=== PATIENT | female | born 1945 | race Caucasian/White ===

== ENCOUNTER 2020-10-12 08:37 | Outpatient (CLI) | payer MEDICARE, SELFPAY ==
--- NOTE | ~2020-10-12 | MM_ITS ---
EXAMINATION: MM screening [facility] BI w anh HISTORY: Screening mammogram TECHNIQUE: Craniocaudal and mediolateral oblique 3-D tomosynthesis images were obtained and synthetic 2-D images were generated. CAD analysis was submitted and interpreted. COMPARISON: 09/29/2019, 09/28/2018, 09/22/2017 BREAST PARENCHYMAL COMPOSITION: There are scattered areas of fibroglandular density. FINDINGS: There is no evidence of suspicious mass, calcification, or architectural distortion to sugg est malignancy in either breast. There has been no suspicious interval change. IMPRESSION: 1. No mammographic evidence of malignancy. 2. Recommend routine screening mammography in one year. BI-RADS Category 1: Negative Reviewed, dictated and finalized at location A. ICIAN PEDIATRICIAN
--- NOTE | ~2020-10-12 | DEXA_ITS ---
Bone Density Report Name: Ana Rosa Patiño Age: 75 Sex: Female Ethnicity: White Date of : 1945 Indication: postmenopausal; parental hip fracture; height loss; Referring Provider: LAQUITA ROBERT Study: Bone densitometry was performed. Exam Date: October 12, 2020 Accession number: [id number] Bone Density: Region BMD T-score Z-score Classification AP Spine (L1, L4) 1.330 2.7 5.0 Normal Femoral Neck (Left) 0.735 -1.0 1.0 Normal Total Hip (Left) 0.926 -0.1 1.6 Normal Total Hip Bilateral Avg 0.897 -0.4 1.4 Normal Femoral Neck (Right) 0.595 -2.3 -0.3 Osteopenia Total Hip (Right) 0.867 -0.6 1.1 Normal World Health Organization criteria for BMD impression classify patients as: Normal (T-score at or above -1.0), Osteopenia (T-score between -1.0 and -2.5), or Osteoporosis (T-score at or below -2.5). 10-year Fracture Risk(1): Major Osteoporotic Fracture 23% Hip Fracture 11% Reported Risk Factors: [place] (), Neck BMD=0.595, BMI=32.4, parental fracture (1) FRAX(R) Version 3.08. Fracture probability calculated for an untreated patient. Fracture probability may be lower if the patient has received treatment. Previous Exams: Region Exam Age BMD T-score BMD Change BMD Change Date g/cm2 vs Baseline vs Previous AP Spine(L1, L4) 10/12/2020 75 1.330 2.7 0.116(9.5%)# 0.131(10.9%)* 08/26/2012 67 1.199 1.5 -0.015(-1.3%)# -0.049(-3.9%)# 07/08/2006 61 1.248 1.9 0.034(2.8%)* 0.034(2.8%)* 07/01/2002 57 1.214 1.6 Total Hip(Left) 10/12/2020 75 0.926 -0.1 -0.010(-1.1%)# 0.005(0.5%)# 09/28/2018 73 0.921 -0.2 -0.015(-1.6%)# 0.012(1.3%) 09/16/2016 71 0.909 -0.3 -0.027(-2.9%)# 0.000(0.0%) 09/12/2014 69 0.909 -0.3 -0.027(-2.9%)# -0.019(-2.0%)# 08/26/2012 67 0.928 -0.1 -0.008(-0.9%)# 0.082(9.7%)# 08/15/2010 65 0.846 -0.8 -0.090(-9.6%)* -0.054(-6.0%)* 07/08/2006 61 0.900 -0.3 -0.036(-3.9%)* -0.036(-3.9%)* 07/01/2002 57 0.936 0.0 Total Hip(Right) 10/12/2020 75 0.867 -0.6 0.054(6.6%)# 0.016(1.8%)# 09/28/2018 73 0.852 -0.7 0.038(4.7%)# 0.004(0.4%) 09/16/2016 71 0.848 -0.8 0.034(4.2%)# -0.012(-1.3%) 09/12/2014 69 0.860 -0.7 0.046(5.7%)# 0.032(3.9%)# 08/26/2012 67 0.827 -0.9 0.014(1.7%)# 0.030(3.8%)# 08/15/2010 65 0.797 -1.2 -0.016(-2.0%) -0.017(-2.1%) 07/08/2006 61 0.815 -1.0 0.001(0.1%) 0.001(0.1%) 07/01/2002 57 0.814 -1.1 *Denotes significance at 95% confidence level, LSC for AP Spine = 0.022 g/cm2
== END 2020-10-12 08:38 | disposition home or self-care (01) ==
LOC: ANHIMG 08:40
PROVIDERS: PCP Internal Medicine; Visit Provider Obstetrics & Gynecology Gynecology
DX: Z12.31 Encounter for screening mammogram for malignant neoplasm of breast (principal); M81.0 Age-related osteoporosis without current pathological fracture; Z78.0 Asymptomatic menopausal state; M85.851 Other specified disorders of bone density and structure, right thigh
CPT/HCPCS: 77063; 77067; 77080

== ENCOUNTER 2020-12-11 16:39 | Emergency (ER) | payer MEDICARE, SELFPAY ==
[2020-12-11 16:50] VITALS: BP 91/52; PULSE 78; RESP 16; TEMP 36.7; O2SAT 98
--- NOTE | 2020-12-11 16:59 | ED.GENADULT ---
HPI - General Adult General Chief complaint: Extremity Injury, Upper Stated complaint: L ARM PAIN Time Seen by Provider: 12/11/20 16:59 Source: patient and RN notes reviewed Mode of arrival: ambulatory Limitations: no limitations History of Present Illness HPI narrative: 75-year-old female presents with complains of tenderness to the left upper arm vaccine, last on for the past 14 days. Ana Rosa reports increase pain 2-3 days after receiving 2nd Moderna COVID-19 vaccine, pain continue to increase. Unknown mechanism of injury. Ice and heat without relief. No radiation of pain. Exacerbation factor consist of movement. The relieving factor is immobility. Dominant hand is the RT hand. Denies fever or chills. The patient reports she have not been diagnosed with COVID-19. The patient reports she received 2 Moderna COVID-19 vaccines on 11/27/20. The patient reports she is not waiting for the results of a COVID-19 lab test. The patient reports she do not have weakness or fatigue. The patient reports she do not have a new or worsening cough or shortness of breath. Denies chest pain. The patient reports she do not have any rhinorrhea, congestion, sore throat, loss of taste or smell, nausea, vomiting, abdominal pain, and diarrhea. Tolerating po intake well. Denies recent traveling. Denies concerns for COVID-19 or exposures been home with limited outdoor exposure except for essential household needs and return home. At this time, patient is not suspected of having COVID-19. Some parts of this dictation were generated by voice recognition software and may contain typographical and/or grammatical inaccuracies. Related Data Home Medications Medication Instructions Recorded Confirmed aspirin [Aspir-81] 81 mg PO DAILY 08/01/19 10/04/20 calcium carb and citrate-vitD3 2 tablet PO DAILY 08/01/19 10/04/20 [Citracal + D Slow Release] cholecalciferol (vitamin D3) 2,000 unit PO DAILY 08/01/19 10/04/20 [Vitamin D3] Allergies Allergy/AdvReac Type Severity Reaction Status Date / Time meperidine Allergy Unknown SEVERE Verified 10/04/20 08:33 HYPOTENSION terfenadine Allergy Unknown Hives Verified 10/04/20 08:33 Review of Systems Review of Systems: Narrative: CONSTITUTIONAL: Denies fever, chills, sweats. EYES: Denies visual changes, redness, discharge. ENT: Denies rhinorrhea, congestion, sore throat, otalgia. CARDIOVASCULAR: Denies chest pain, palpitations, edema. RESPIRATORY: Denies dyspnea, wheezing, cough. GASTROINTESTINAL: Denies abdominal pain, nausea, vomiting, diarrhea. SKIN: Denies rash or itching. MUSCULOSKELETAL: Denies acute back pain or myalgia. Complains of LT upper arm pain. NEUROLOGIC: Denies numbness, or focal weakness. PSYCHIATRIC: Denies anxiety or depression. All other systems reviewed & are unremarkable except as noted in HPI and below. [facility] Past Medical History Medical History (Updated 12/12/20 @ 00:00 by Bill Gomes) Adenomatous colon polyp Bladder prolapse CVA (cerebral vascular accident) History of vaginal delivery X2 HTN (hypertension) Hypercholesterolemia Hypothyroidism Obesity Osteoarthritis Seborrheic keratoses Surgical History Surgical History (Updated 12/11/20 @ 17:27 by YOEL Santiago) History of lumpectomy of right breast Benign History of tubal ligation Family History Family History (Updated 12/11/20 @ 17:28 by YOEL Santiago) Father Acute myocardial infarction Mother , Related to C. difficile No problems noted. Social History Social History (Updated 12/11/20 @ 17:29 by YOEL Santiago) Smoking status: Former smoker Tobacco type: cigarettes Second hand tobacco smoke exposure: Yes Smoking end date: 01/05/11 Alcohol intake: never Substance use: never Living arrangements: with family Occupation/Education: retired Gender identity (if verbalized by the patient): Female Sexual Orientation (
--- NOTE | 2020-12-11 17:11 | PC.NURSE ---
BP rechecked manually and was 92/60
== END 2020-12-11 17:39 | disposition home or self-care (01) ==
PROVIDERS: Emergency Provider Nurse Practitioner Family; PCP Internal Medicine
DX: M25.59 Pain in other specified joint (principal); Z87.891 Personal history of nicotine dependence; Z86.73 Personal history of transient ischemic attack (TIA), and cerebral infarction without residual deficits; I10 Essential (primary) hypertension; E78.00 Pure hypercholesterolemia, unspecified; M19.90 Unspecified osteoarthritis, unspecified site
CPT/HCPCS: 99213; G0463

== ENCOUNTER 2021-05-02 08:58 | Outpatient (CLI) | payer MEDICARE, SELFPAY ==
--- NOTE | ~2021-05-02 | US_ITS ---
EXAMINATION: US carotid duplex BI DATE: 05/02/2021 10:08 INDICATION: Cerebral atherosclerosis. Symptoms and signs involving the circulatory and respiratory sy stems. TECHNIQUE: Grayscale, color Doppler, and pulsed Doppler images of the cervical carotid arteries were obtained. The degree of vessel stenosis is placed in one of the following categories: normal, <50%, 5 0-69%, >=70% but less than near-occlusion, near-occlusion, or total occlusion. Note that percent sten osis relative to normal distal artery lumen diameter is indirectly measured from velocity measurement s as described by Zackery, et al. Radiology 2003; 229:340-346. COMPARISON: None. FINDINGS: RIGHT: Bidirectional flow in the right common carotid artery (CCA) width peak systolic velocity (PSV) of 19 cm/s and with small amount of retrograde flow at the end of diastole. The right internal carotid stella ry (ICA) PSV is 22 cm/s, also with flow reversible at the end of diastole. The right ICA/CCA PSV rati o is 1.2. Grayscale images demonstrate shadowing atherosclerotic plaque with indeterminate degree of diameter reduction from plaque in the ICA. Unable utilize Doppler criteria given the bidirectional fl ow in the more distal right ICA suggesting further distal nonvisualized high-grade stenosis versus oc clusion. The external carotid artery (ECA) PSV is 23 cm/s. There is retrograde flow in the right vert ebral artery. LEFT: The left CCA PSV is 76 cm/s. The left ICA PSV is 166 cm/s. The left ICA EDV is 55 cm/s. The left ICA/ CCA PSV ratio is 2.2. Grayscale and color Doppler images yield an estimate of 50-69% diameter reducti on from plaque in the ICA. The ECA PSV is 186 cm/s. There is antegrade flow in the left vertebral art imchael. IMPRESSION: 1. Bidirectional flow in the right common and more prominently in the right internal carotid artery s uggesting a more distal nonvisualized right internal carotid artery high-grade stenosis or potentiall y occlusion. The relatively low velocity, broadened systolic peak and flow reversal in the right comm on carotid artery extending a significant distance proximal to the bifurcation suggest possibility of an additional hemodynamically significant more proximal stenosis. Flow reversible in the right verte bral artery suggests this may occur at the level of the innominate artery. Would recommend further ev aluation with carotid CT angiogram. 2. 50-69% stenosis in the left internal carotid artery. Reviewed, dictated and finalized at location B. IMPRESSION: 1. Bidirectional flow in the right common and more prominently in the right int ernal carotid artery suggesting a more distal nonvisualized right internal mcdaniel tid artery high-grade stenosis or potentially occlusion. The relatively low stephan ocity, broadened systolic peak and flow reversal in the right common carotid ar peggy extending a significant distance proximal to the bifurcation suggest possi bility of an additional hemodynamically significant more proximal stenosis. Pawan w reversible in the right vertebral artery suggests this may occur at the level of the innominate artery. Would recommend further evaluation with carotid CT a ngiogram. 2. 50-69% stenosis in the left internal carotid artery.
== END 2021-05-02 08:59 | disposition home or self-care (01) ==
PROVIDERS: PCP Internal Medicine; Visit Provider Internal Medicine
DX: R09.89 Other specified symptoms and signs involving the circulatory and respiratory systems (principal); I65.22 Occlusion and stenosis of left carotid artery
CPT/HCPCS: 93880

== ENCOUNTER 2021-10-15 15:25 | Outpatient (CLI) | payer MEDICARE, SELFPAY ==
--- NOTE | ~2021-10-15 | MM_ITS ---
EXAMINATION: MM screening [facility] BI w anh HISTORY: Screening TECHNIQUE: Craniocaudal and mediolateral oblique 3-D tomosynthesis images were obtained and synthetic 2-D images were generated. CAD analysis was submitted and interpreted. COMPARISON: Comparison to multiple prior studies sequentially, with oldest reviewed study dated 09/16. BREAST PARENCHYMAL COMPOSITION: Breast composed of scattered areas of fibroglandular density FINDINGS: There is no evidence of suspicious mass, calcification, or architectural distortion to sugg est malignancy in either breast. There has been no suspicious interval change. IMPRESSION: 1. No mammographic evidence of malignancy. 2. Recommend routine screening mammography in one year. BI-RADS Category 1: Negative Reviewed, dictated and finalized at location A. TERRAIN VEHICLE RACER
== END 2021-10-15 15:26 | disposition home or self-care (01) ==
LOC: ANHIMG 15:27
PROVIDERS: PCP Internal Medicine; Visit Provider Obstetrics & Gynecology Gynecology
DX: Z12.31 Encounter for screening mammogram for malignant neoplasm of breast (principal)
CPT/HCPCS: 77063; 77067

== ENCOUNTER → 2022-10-31 10:20 | Outpatient (CLI) | payer MEDICARE, SELFPAY ==
--- NOTE | ~2022-10-31 | XR_ITS ---
EXAMINATION: XR TMJ BI DATE: 10/31/2022 10:50 INDICATION: Bilateral jaw pain with eating any types of food. TECHNIQUE: Lateral open and closed mouth views of the bilateral temporomandibular joints were obtaine d. COMPARISON: None. FINDINGS: The left temporomandibular joint is normally located in the open and closed mouth positions. No signi ficant osteoarthritic changes. The right temporomandibular joint is positioned eccentrically, slightl y more anterior within the temporal mandibular fossa in the closed mouth position. There is anterior translation the open-mouth position but with the mandibular condyle again positioned slightly more an terior than typical relative to the articular eminence of the temporomandibular fossa. No significant osteoarthritic changes appreciated. Patient is edentulous with alveolar ridge resorptive at both the mandible and maxilla. No fracture id entified although assessment of the facial bones is somewhat limited by overpenetration. Incidentally noted is a vascular stent in the region of either the internal carotid artery or internal jugular ve in. IMPRESSION: 1. Right mandibular condyle is positioned slightly more anteriorly than typically within the temporom andibular fossa and with respect to the articular eminence in the closed and open mouth positions res pectively. 2. Left temporal mandibular joint is unremarkable. Reviewed, dictated and finalized at location A. ECTION WORKER IMPRESSION: 1. Right mandibular condyle is positioned slightly more anteriorly than typical ly within the temporomandibular fossa and with respect to the articular eminenc e in the closed and open mouth positions respectively. 2. Left temporal mandibular joint is unremarkable.
== END ==
PROVIDERS: PCP Nurse Practitioner; Visit Provider Nurse Practitioner
DX: R68.84 Jaw pain (principal); G89.29 Other chronic pain
CPT/HCPCS: 70330

== ENCOUNTER 2022-11-14 14:43 | Outpatient (CLI) | payer MEDICARE, SELFPAY ==
--- NOTE | ~2022-11-14 | MM_ITS ---
EXAMINATION: MM screening [facility] BI w anh HISTORY: Screening mammogram TECHNIQUE: Craniocaudal and mediolateral oblique 3-D tomosynthesis images were obtained and synthetic 2-D images were generated. CAD analysis was submitted and interpreted. COMPARISON: 10/15/2021, 10/12/2020, 09/29/2019 BREAST PARENCHYMAL COMPOSITION: There are scattered areas of fibroglandular density. FINDINGS: No suspicious mass, calcification, or architectural distortion are identified in either luis ast to suggest malignancy. There has been no suspicious interval change. IMPRESSION: 1. No mammographic evidence of malignancy. 2. Recommend routine screening mammography in one year. BI-RADS Category 1: Negative Reviewed, dictated and finalized at location A. P STITCHER
--- NOTE | ~2022-11-14 | DEXA_ITS ---
Bone Density Report Name: JOSE WATERS Age: 77 Sex: Female Ethnicity: White Date of : 1945 Indication: monitoring treatment; height loss; postmenopausal Referring Provider: LAQUITA ROBERT Study: Bone densitometry was performed. Exam Date: November 14, 2022 Accession number: [id number] Bone Density: Region BMD T-score Z-score Classification AP Spine(L1, L2) 1.369 3.5 5.8 Normal Femoral Neck (Left) 0.812 -0.3 1.8 Normal Total Hip (Left) 0.932 -0.1 1.7 Normal Femoral Neck (Right) 0.643 -1.9 0.2 Osteopenia Total Hip (Right) 0.837 -0.9 1.0 Normal Total Hip Mean 0.885 -0.5 1.4 Normal World Health Organization criteria for BMD impression classify patients as: Normal (T-score at or above -1.0), Osteopenia (T-score between -1.0 and -2.5), or Osteoporosis (T-score at or below -2.5). 10-year Fracture Risk: FRAX not reported because: Treated for osteoporosis Previous Exams: Region Exam Age BMD T-score BMD Change BMD Change Date g/cm2 vs Baseline vs Previous AP Spine (L1-L2) 11/14/2022 77 1.369 3.5 -0.192 (-12.3% -0.243 (-15.1% 09/28/2018 73 1.612 5.8 0.050 (3.2%)* 0.050 (3.2%)* 09/16/2016 71 1.561 5.3 Total Hip(Left) 11/14/2022 77 0.932 -0.1 0.023 (2.6%) 0.006 (0.7%)# 10/12/2020 75 0.926 -0.1 0.017 (1.9%)# 0.005 (0.5%)# 09/28/2018 73 0.921 -0.2 0.012 (1.3%) 0.012 (1.3%) 09/16/2016 71 0.909 -0.3 Total Hip(Right) 11/14/2022 77 0.837 -0.9 -0.011 (-1.3%) -0.030 (-3.4%) 10/12/2020 75 0.867 -0.6 0.019 (2.2%)# 0.016 (1.8%)# 09/28/2018 73 0.852 -0.7 0.004 (0.4%) 0.004 (0.4%) 09/16/2016 71 0.848 -0.8 *Denotes significance at 95% confidence level, LSC for AP Spine = 0.022 g/cm2, LSC for Total Hip = 0.027 g/cm2 # Denotes dissimilar scan types or analysis methods Clinical Information Provided by Patient: Is being treated for osteoporosis Has used the following medications: Boniva (i.e. ibandronate), Vitamin D, Calcium Patient maximum height was 63 Menopause Age: 54 No regular weight bearing exercise Drinks caffeinated beverages Onset of menses at age 17 Number of children 2 Impression: The patient has low bone mass, based on the Right Femoral Neck T-score. The BMD for the AP Spine (L1-L2) decreased, changing by -15.1% since the last DXA exam. Discussion: SIGNIFICANT BONE LOSS OBSERVED. Adherence to therapy (including calcium and vitamin D intake) sh
== END 2022-11-14 14:44 | disposition home or self-care (01) ==
LOC: ANHIMG 14:45
PROVIDERS: PCP Nurse Practitioner; Visit Provider Obstetrics & Gynecology Gynecology
DX: Z12.31 Encounter for screening mammogram for malignant neoplasm of breast (principal); Z78.0 Asymptomatic menopausal state; M85.851 Other specified disorders of bone density and structure, right thigh
CPT/HCPCS: 77063; 77067; 77080

== ENCOUNTER 2023-05-01 07:29 | Outpatient (CLI) | payer MEDICARE, SELFPAY ==
[2023-05-01 08:20] LABS: Potassium 4.3 mmol/L (3.4-5.0)
[2023-05-01 08:30] LABS: Alanine Aminotransferase 32 U/L (6-35); Albumin Level 4.2 g/dL (3.5-5.1); Alkaline Phosphatase 74 U/L (38-126); Anion Gap 2 mmol/L (8-16); Aspartate Amino Transferase 36 U/L (14-36); Bilirubin,Total 0.5 mg/dL (0.2-1.3); Blood Urea Nitrogen 10 mg/dL (7-17); Calcium 9.9 mg/dL (8.4-10.2); Carbon Dioxide 32 mmol/L (22-30); Chloride 102 mmol/L (98-107); Cholesterol 147 mg/dL (0-200); Estimated Glomerular Filt Rate > 60; Glucose 116 mg/dL (65-110); HDL Direct 41 mg/dL; Sodium 136 mmol/L (137-145); Triglycerides 177 mg/dL (<150)
[2023-05-01 08:31] LABS: LDL Cholesterol Direct 72 mg/dL
[2023-05-01 08:49] LABS: Thyroid Stimulating Hormone 0.029 uIU/mL (0.465-4.680)
[2023-05-01 09:00] LABS: Free T4 Free Thyroxine 1.66 ng/mL (0.78-2.19)
== END 2023-05-01 07:30 | disposition home or self-care (01) ==
PROVIDERS: PCP Nurse Practitioner; Visit Provider Nurse Practitioner
DX: E78.5 Hyperlipidemia, unspecified (principal); E03.9 Hypothyroidism, unspecified; R73.01 Impaired fasting glucose
CPT/HCPCS: 36415; 80053; 80061; 83036; 84439; 84443

== ENCOUNTER 2023-11-05 07:20 | Outpatient (CLI) | payer MEDICARE, SELFPAY ==
[2023-11-05 07:38] LABS: Hematocrit 39.2 % (37.0-47.0); Mean Corpuscular HGB Conc 33.2 g/dl (32-36); Mean Corpuscular Hemoglobin 31.7 pg (26-34); Mean Corpuscular Volume 95.6 fl (80-100); Mean Platelet Volume 10.6 fl (7.4-10.4); Platelet Count Result 326 k/mm3 (150-375); Red Cell Distribution Width 12.3 % (11.5-14.5); White Blood Count 7.1 K/mm3 (4.5-10.0)
[2023-11-05 07:50] LABS: Alanine Aminotransferase 28 U/L (6-35); Albumin Level 4.3 g/dL (3.5-5.1); Alkaline Phosphatase 79 U/L (38-126); Anion Gap 5 mmol/L (8-16); Aspartate Amino Transferase 39 U/L (14-36); Bilirubin,Total 0.6 mg/dL (0.2-1.3); Blood Urea Nitrogen 12 mg/dL (7-17); Calcium 9.7 mg/dL (8.4-10.2); Carbon Dioxide 32 mmol/L (22-30); Chloride 99 mmol/L (98-107); Cholesterol 118 mg/dL (0-200); Estimated Glomerular Filt Rate > 60; Glucose 113 mg/dL (65-110); HDL Direct 38 mg/dL; Potassium 3.5 mmol/L (3.4-5.0); Sodium 136 mmol/L (137-145); Triglycerides 162 mg/dL (<150)
[2023-11-05 08:01] LABS: LDL Cholesterol Direct 59 mg/dL
[2023-11-05 08:18] LABS: Free T4 Free Thyroxine 1.44 ng/mL (0.78-2.19)
[2023-11-05 08:21] LABS: Thyroid Stimulating Hormone 0.267 uIU/mL (0.465-4.680)
== END 2023-11-05 07:21 | disposition home or self-care (01) ==
PROVIDERS: PCP Nurse Practitioner; Visit Provider Nurse Practitioner
DX: E78.5 Hyperlipidemia, unspecified (principal); E03.9 Hypothyroidism, unspecified; Z79.899 Other long term (current) drug therapy; R73.01 Impaired fasting glucose
CPT/HCPCS: 36415; 80053; 80061; 83036; 84439; 84443; 85027

== ENCOUNTER 2023-11-23 09:10 | Outpatient (CLI) | payer MEDICARE, SELFPAY ==
--- NOTE | ~2023-11-23 | CT_ITS ---
CT ANGIOGRAM NECK AND HEAD History: Aneurysm. Technique: Axial noncontrast imaging of the brain was performed. Serial spiral axial images through t he head and neck were then obtained during arterial phase IV injection of 100 cc of Omnipaque 350. 3- D postprocessing and MIP images were then reconstructed on the remote workstation. Dose reduction nghia hnique was used on this scan by utilizing automated exposure control and iterative reconstruction nghia hnique. The dose-length product (DLP) was 1336.61 mGy-cm. CTA neck findings: Bilateral vertebral are patent, without stenosis or occlusion. There is extensive calcified plaque at the distal right common carotid artery extending to the proximal right internal carotid artery. There is high-grade stenosis of the proximal right internal carotid artery, approxima tely 80% focally. Mid and distal right cervical internal carotid artery are small in caliber, possibl y due to impaired flow through the stenosis. There is a stent in the proximal left internal carotid a rtery, though there is probable mild to moderate luminal narrowing with stenosis of approximately 50% despite the stent placement. The proximal right internal carotid artery demonstrates 80% stenosis re lative to the normal distal artery lumen diameter. The proximal left internal carotid artery demonstr ates 50% stenosis relative to the normal distal artery lumen diameter. CTA head findings: Distal vertebral arteries, basilar artery, and posterior cerebral arteries are pat ent. Distal internal carotid arteries, middle cerebral arteries, and anterior shoulder arteries are p atent. No large vessel occlusion. No stenosis or aneurysm. Axial noncontrast imaging of the brain is unremarkable. No acute infarct, internal hemorrhage, or mas s lesion seen. Dillon-white differentiation preserved. No mass effect or midline shift. Ventricles and subarachnoid spaces are unremarkable. Paranasal sinuses and mastoid air cells are clear. Impression: High-grade stenosis at the distal right common carotid artery and proximal right internal carotid art michael, as detailed above, with low caliber mid and distal cervical right internal carotid artery, possi aliyah due to impaired flow through the stenosis. Please see details above. Mild to moderate stenosis at the proximal left internal carotid artery despite stent placement. Reviewed, dictated and finalized at location M. Impression: High-grade stenosis at the distal right common carotid artery and proximal righ t internal carotid artery, as detailed above, with low caliber mid and distal c ervical right internal carotid artery, possibly due to impaired flow through th e stenosis. Please see details above. Mild to moderate stenosis at the proximal left internal carotid artery despite stent placement.
[2023-11-23 09:32] LABS: Estimated Glomerular Filt Rate > 60
== END 2023-11-23 09:11 ==
LOC: MICIMG 09:11
PROVIDERS: PCP Nurse Practitioner; Visit Provider Nurse Practitioner
DX: I67.1 Cerebral aneurysm, nonruptured (principal); I65.29 Occlusion and stenosis of unspecified carotid artery
CPT/HCPCS: 36415; 70496; 70498; Q9967

== ENCOUNTER 2023-12-18 07:20 | Outpatient (CLI) | payer MEDICARE, SELFPAY ==
[2023-12-18 07:57] LABS: Anion Gap 7 mmol/L (4-12); Blood Urea Nitrogen 9 mg/dL (7-17); Calcium 10.2 mg/dL (8.4-10.2); Carbon Dioxide 28 mmol/L (22-30); Chloride 104 mmol/L (98-107); Estimated Glomerular Filt Rate > 60; Glucose 117 mg/dL (65-110); Potassium 3.9 mmol/L (3.4-5.0); Sodium 139 mmol/L (137-145)
== END 2023-12-18 07:21 | disposition home or self-care (01) ==
PROVIDERS: PCP Nurse Practitioner Family; Visit Provider Internal Medicine Cardiovascular Disease
DX: I10 Essential (primary) hypertension (principal)
CPT/HCPCS: 36415; 80048

== ENCOUNTER 2024-01-01 07:22 | Outpatient (CLI) | payer MEDICARE, SELFPAY ==
[2024-01-01 08:48] LABS: Anion Gap 3 mmol/L (4-12); Blood Urea Nitrogen 10 mg/dL (7-17); Calcium 10.5 mg/dL (8.4-10.2); Carbon Dioxide 34 mmol/L (22-30); Chloride 101 mmol/L (98-107); Estimated Glomerular Filt Rate > 60; Glucose 119 mg/dL (65-110); Sodium 138 mmol/L (137-145)
== END 2024-01-01 07:23 | disposition home or self-care (01) ==
LOC: ANHLAB 07:24
PROVIDERS: PCP Nurse Practitioner Family; Visit Provider Internal Medicine Cardiovascular Disease
DX: I10 Essential (primary) hypertension (principal)
CPT/HCPCS: 36415; 80048

== ENCOUNTER 2024-01-06 10:39 | Outpatient (CLI) | payer MEDICARE, SELFPAY ==
--- NOTE | ~2024-01-06 | MM_ITS ---
EXAMINATION: MM screening [facility] BI w anh HISTORY: Screening TECHNIQUE: Craniocaudal and mediolateral oblique 3-D tomosynthesis images were obtained and synthetic 2-D images were generated. CAD analysis was submitted and interpreted. COMPARISON: Comparison to multiple prior studies sequentially, with oldest reviewed study dated 09/22. BREAST PARENCHYMAL COMPOSITION: Not dense: There are scattered areas of fibroglandular density. FINDINGS: There is no evidence of suspicious mass, calcification, or architectural distortion to sugg est malignancy in either breast. There has been no suspicious interval change. IMPRESSION: 1. No mammographic evidence of malignancy. 2. Recommend routine screening mammography in one year. BI-RADS Category 1: Negative Reviewed, dictated and finalized at location B.
== END 2024-01-06 10:40 ==
LOC: MICIMG 10:40
PROVIDERS: PCP Obstetrics & Gynecology Gynecology; Visit Provider Obstetrics & Gynecology Gynecology
DX: Z12.31 Encounter for screening mammogram for malignant neoplasm of breast (principal)
CPT/HCPCS: 77063; 77067

== ENCOUNTER 2024-05-17 07:32 | Outpatient (CLI) | payer MEDICARE, SELFPAY ==
[2024-05-17 08:09] LABS: Alanine Aminotransferase 29 U/L (6-35); Albumin Level 4.4 g/dL (3.5-5.1); Alkaline Phosphatase 71 U/L (38-126); Anion Gap 8 mmol/L (4-12); Aspartate Amino Transferase 38 U/L (14-36); Bilirubin,Total 0.5 mg/dL (0.2-1.3); Blood Urea Nitrogen 10 mg/dL (7-17); Calcium 9.5 mg/dL (8.4-10.2); Carbon Dioxide 31 mmol/L (22-30); Chloride 97 mmol/L (98-107); Cholesterol 124 mg/dL (0-200); Estimated Glomerular Filt Rate > 60; Glucose 111 mg/dL (65-110); HDL Direct 41 mg/dL; Potassium 4.4 mmol/L (3.4-5.0); Sodium 136 mmol/L (137-145); Triglycerides 146 mg/dL (<150)
[2024-05-17 08:21] LABS: LDL Cholesterol Direct 55 mg/dL
[2024-05-17 08:34] LABS: Thyroid Stimulating Hormone 0.118 uIU/mL (0.465-4.680)
[2024-05-17 09:24] LABS: Free T4 Free Thyroxine 1.38 ng/mL (0.78-2.19)
== END 2024-05-17 07:33 | disposition home or self-care (01) ==
LOC: ANHLAB 07:38
PROVIDERS: PCP Nurse Practitioner Family; Visit Provider Nurse Practitioner Family
DX: E03.9 Hypothyroidism, unspecified (principal); R73.01 Impaired fasting glucose; E78.00 Pure hypercholesterolemia, unspecified; I10 Essential (primary) hypertension; E78.5 Hyperlipidemia, unspecified
CPT/HCPCS: 36415; 80053; 80061; 83036; 84439; 84443

== ENCOUNTER 2024-05-19 09:58 | Outpatient (CLI) | payer MEDICARE, SELFPAY ==
[2024-05-19 11:42] LABS: Basophils Absolute Auto 0.1 K/mm3 (0.0-0.1); Basophils Percent Auto 0.5 % (0.2-1.2); Eosinophils Absolute Auto 0.1 K/mm3 (0-0.3); Eosinophils Percent Auto 1.3 % (0-4.4); Hematocrit 36.7 % (37.0-47.0); Hemoglobin 12.1 g/dL (12.0-15.0); Immature Granulocyte Absolute 0.03 K/mm3 (0.00-0.031); Immature Granulocyte Percent A 0.3 % (0-0.5); Lymphocytes Absolute Auto 2.49 K/mm3 (0.9-3.2); Lymphocytes Percent Auto 24.6 % (18.3-44.2); Mean Corpuscular Hemoglobin 31.5 pg (26-34); Mean Corpuscular Volume 95.6 fl (80-100); Mean Platelet Volume 10.9 fl (7.4-10.4); Monocytes Absolute Auto 0.9 K/mm3 (0.1-0.6); Monocytes Percent Auto 9.1 % (2.6-8.5); Neutrophils Absolute Auto 6.5 K/mm3 (1.3-6.7); Neutrophils Percent Auto 64.2 % (45.5-73.1); Platelet Count Result 280 k/mm3 (150-375); Red Blood Count 3.84 M/mm3 (4.2-5.4); Red Cell Distribution Width 12.3 % (11.5-14.5); White Blood Count 10.1 K/mm3 (4.5-10.0)
== END 2024-05-19 09:59 | disposition home or self-care (01) ==
LOC: ANHLAB 10:03
PROVIDERS: PCP Nurse Practitioner Family; Visit Provider Internal Medicine Cardiovascular Disease
DX: I25.10 Atherosclerotic heart disease of native coronary artery without angina pectoris (principal)
CPT/HCPCS: 36415; 85025

== ENCOUNTER 2024-11-22 07:40 | Outpatient (CLI) | payer MEDICARE, SELFPAY ==
--- OUTSIDE RECORDS SUMMARY | 2024-11-22 07:44 | XMS_ITS | Data Portability ---
Author Organization [place] [facility], Main Office Address [address] [place] [address] Assessment Encounter Date Assessment Date Assessment LastModified by Organization Details LastModified Time 09/17/2023 09/17/2023 Patient has moderately advanced primary osteoarthritis of the left knee joint at her request under sterile conditions I injected the patient's left knee joint in the office today with Orthovisc injection number 2. I will see her back next week for the 3rd injection left knee she has already started the knee noticed some relief. She voiced understanding agrees above plan she will call for any further problems difficulties or questions. Not available 09/17/2023 10:19:48 09/24/2023 09/24/2023 By history and exam the patient is noted to have chronic left knee pain due to moderate primary osteoarthritis and likely an old ACL disruption. At her request under sterile conditions I injected the patient's left knee joint in the office today with Orthovisc injection number 3. The patient tolerated procedure well. I will see her back as needed I have told her we can do this again in 6 months versus cortisone in between she will let us know how this works and a couple of months. She voiced understanding agrees above plan she will continue with current conservative measures call for any further problems difficulties or questions. Not available 09/24/2023 10:16:42 06/09/2024 06/09/2024 By previous x-ra y which was reviewed in detail today with the patient and her exam today the patient is noted to have moderately severe primary osteoarthritis left knee joint. She did very well gel shots previously she would like to repeat those today. Therefore under sterile conditions I injected the patient's left knee joint in the office with Orthovisc injection number 1. I will see her back next week for the 2nd injection left knee. She voiced understanding agrees above plan she will call for any further problems difficulties or questions. Not available 06/09/2024 09:52:55 06/16/2024 06/16/2024 Patient has moderate primary osteoarthritis left knee joint as described. Under sterile conditions I injected the patient's left knee joint in the office with Orthovisc injection number 2. I will see her back next week for the 3rd injection left knee she voiced understanding agrees above plan she will call for any further problems difficulties or questions. Not available 06/16/2024 09:42:49 06/23/2024 06/23/2024 The patient has moderately severe primary osteoarthritis left knee joint. Under sterile conditions I injected the patient's left knee joint in the office today with Orthovisc injection number 3. I will see her back as needed we can do this again 6 months we could do cortisone in between if necessary. She is getting excellent relief so far. She voiced understanding agrees above plan she will call for any further problems difficulties or questions. Not available 06/23/2024 09:59:43 Plan of Treatment Reminders Order Date Submit Date Provider Last Modified By Organization Details Last Modified Time Details Appointments None recorded. Lab None recorded. Referral None recorded. Procedures knee aspiration /injection (PROC) 2023 024 [email or web address] In-Office Order, Internal Use Only DO Not Attach Compendium DO Not Attach Compendium, Do Not Delete/merge, [id number] 09:35:28 knee aspiration /injection (PROC) 2023 024 [email or web address] In-Office Order, Internal Use Only DO Not Attach Compendium DO Not Attach Compendium, Do Not Delete/merge, [id number] 4 09:36:24 knee aspiration /injection (PROC) 2023 024 [email or web address] In-Office Order, Internal Use Only DO Not Attach Compendium DO Not Attach Compendium, Do Not Delete/merge, [id number] 09:42:34 knee aspiration /injection (PROC) 2023 024 [email or web address] In-Office Order, Internal Use Only DO Not Attach Compendium DO Not Attach Compendium, Do Not Delete/merge, [id number] 4 10:02:14 knee aspiration /injection (PROC) 2023 024 [email or web address] In-Office Order, Internal Use Only DO Not Attach Compendium DO Not Attach Compendium, Do Not Delete/merge, [id number] 4 10:04:50 Surgeries None recorded. Imaging None recorded. Medication Orders ORTHOVISC 30 mg/2 mL intra-gisell cular syringe 2023 024 [email or web address] [id number], [address], [place], [place], [id number], 4 10:55:40 ORTHOVISC 30 mg/2 mL intra-gisell cular syringe 2023 024 [email or web address] [id number], [address], [place], [place], [id number], 4 09:52:43 ORTHOVISC 30 mg/2 mL intra-gisell cular syringe 2023 024 [email or web address] [facility], [address], [place], [place], [id number], 4 09:53:35 ORTHOVISC 30 mg/2 mL intra-gisell cular syringe 2023 024 [email or web address] [id number], [address], [place], [place], [id number], 4 10:21:41 ORTHOVISC 30 mg/2 mL intra-gisell cular syringe 2023 024 [email or web address] [facility], [address], [place], [place], [id number], 4 11:07:39 Patient TargetsNo targets recorded. Patient InstructionsNo instructions recorded. Reason for Referral None Reported. Results Created Date Observation Date Name Description Value Unit Range Abnormal Flag Note LastModifiedBy Organization Detail LastModifiedTime 09/09/19 24 XR, hip + pelvi s, unila teral No observ ation record ed. [email or web address] [facility] [place] [address], [place], [address], 09/09/2023 11:35:24 Result Notes None recorded. Problems Name Problem SNOMED Code Status Onset Date Resolution Date Notes Provider Name and Address Organization Details Recorded Time Tendinitis of left rotator cuff 7730658502038 9101 Active 2022 Not Available [facility] 3 20:54:12 Localized, primary osteoarthr itis of the hand 698733642 Active Not Available [facility] 3 20:54:12 Pain in left arm 616365826 Active 2022 Not Available [facility] 3 20:54:12 Osteoarthr itis of left knee joint 4699213417164 09 Active 2021 Not Available [facility] 3 20:54:12 Pain of left knee joint 7553396390286 07 Active 2022 Not Available [facility] 3 20:54:12 Old anterior cruciate ligament disruption 504744345 Active 2022 JOHN Levy [address], [address], [place], [address] , [employer] 3 15:20:41 Old disruption of ligament of knee 11335440 Active 2023 ЕКАТЕРИНА Mendieta, [employer] [facility] [employer] 4 10:18:49 Pain of left hip joint 8084104018530 00 Active 2023 EH Law, [employer] 4 10:48:30 Osteoarthr itis of left hip joint 9029854473500 08 Active 2023 JOHN Levy [address], [address], [place], [address] , [employer] [facility] 4 11:35:39 Problem Notes None recorded. Procedures Surgical History Date Name Laterality Status Provider Name and Address Organization Details Recorded Time Angioplasty completed BERONICA Rao [facility] [employer] [facility] 07/16/2023 14:35:24 Imaging Results Imaging Date Name Status LastModified by Organiz ation Details LastModified Time 09/09/2023 XR, hip + pelvis, unilateral completed [email or web address] [facility] [place] [address], [place], [address], 09/09/2023 11:35:24 Procedure Notes None recorded. Medical Equipment None Reported. Allergies Allergen ID Allergen Name Allergen Category Reaction Reaction Severity Criticality Documentation Date Start Date Code Code System Note Provider Name and Address Organization Details Recorded Time 68315 Seldane medicatio n hives Not available Not available 11/05/2022 48435 0 RxNorm Not Available [facility] 3 20:54:50 54138 Demerol medicatio n Not available Not available Not available 11/05/2022 79045 1 RxNorm low blood press ure BERONICA Rao, [facility] [employer] [facility] 3 14:32:36 43167 latex environme nt,medica tion itching Not available Not available 07/16/2023 07915 91 [facility] [employer] [facility] 3 14:32:59 Medications Name Sig Start Date Stop Date Status Note LastModified by Organization Details LastModified Time atorvastati n 40 mg tablet TAKE 1 TABLET BY MOUTH EVERY DAY 06/03 completed Not Available Not Available Not Available atorvastati n 80 mg tablet TAKE 1 TABLET BY MOUTH ONCE DAILY AT BEDTIME active Not Available Not Available No t Available prednisone 10 mg tablet active Not Available Not Available Not Available atorvastati n 20 mg tablet TAKE 1 TABLET BY MOUTH AT BEDTIME 06/03 completed Not Available Not Available Not Available azithromyci n 250 mg tablet active Not Available Not Available Not Available ibuprofen 800 mg tablet Take 1 tablet 3 times a day by oral route as needed. active Not Available Not Available No t Available valacyclovi r 1 gram tablet TAKE 1 TABLET BY MOUTH EVERY 8 HOURS FOR 7 DAYS active Not Available Not Available No t Available bupivacaine HCl 0.5 % (5 mg/mL) injection solution Take 20 mg by injection route. 2022 active Not Available Not Available Not Avai lable prednisone 20 mg tablet TAKE 2 TABLETS BY MOUTH DAILY active Not Available Not Available No t Available metronidazo le 500 mg tablet TAKE 1 TABLET BY MOUTH TWICE DAILY active Not Available Not Available No t Available clopidogrel 75 mg tablet TAKE 1 TABLET BY MOUTH DAILY active Not Available Not Available No t Available prednisone 10 mg tablets in a dose pack Take 1 tab by mouth, 3 times a day for 3 daysTake 1 tab by mouth 2 times a day for 2 daysTake 1 tab by mouth once a day for 1 day 07/16 completed Not Available Not Available Not Available levothyroxi ne 100 mcg tablet TAKE 1 TABLET BY MOUTH DAILY active Not Available Not Available No t Available levothyroxi ne 88 mcg tablet TAKE 1 TABLET BY MOUTH DAILY active Not Available Not Available No t Available Kenalog 10 mg/mL suspension for injection Take 20 mg by injection route. [address] [facility]: 0003- 0494- 20 Not Available Not Available Not Available diazepam 2 mg tablet TAKE 1 TABLET BY MOUTH 1 HOUR BEFORE TEST 07/16 completed Not Available Not Available Not Available benzonatate 100 mg capsule TAKE 1 CAPSULE BY MOUTH EVERY 8 HOURS NEEDED active Not Available Not Available No t Available cephalexin 500 mg capsule TAKE 1 CAPSULE BY MOUTH TWICE DAILY FOR 5 DAYS 07/16 completed Not Available Not Available Not Available ibuprofen 600 mg tablet PRN active Not Available Not Available Not Available methylpredn isolone 4 mg tablets in a dose pack FOLLOW PACKAGE DIRECTION S 01/14 completed Not Available Not Available Not Available fluticasone propionate 50 mcg/actuati on nasal spray,suspe nsion SHAKE LIQUID AND USE 2 SPRAYS IN EACH NOSTRIL DAILY NEEDED FOR ALLERGY SYMPTOMS active Not Available Not Available No t Available naproxen 500 mg tablet TAKE 1 TABLET BY MOUTH TWICE DAILY WITH FOOD active Not Available Not Available No t Available levothyroxi ne 112 mcg tablet TAKE 1 TABLET BY MOUTH DAILY 07/16 completed Not Available Not Available Not Available olmesartan 20 mg-hydrochl orothiazide 12.5 mg tablet TAKE 1 TABLET BY MOUTH ONCE DAILY active Not Available Not Available No t Available olmesartan 40 mg-hydrochl orothiazide 12.5 mg tablet TAKE 1 TABLET BY MOUTH ONCE DAILY 06/03 completed Not Available Not Available Not Available ORTHOVISC 30 mg/2 mL intra-artic ular syringe Inject 2 mL every week by intra-art icular route. 2023 active Not Available Not Available Not Avai lable ibandronate 150 mg tablet TAKE 1 TABLET BY MOUTH MONTHLY. active Not Available Not Available No t Available losartan 100 mg-hydrochl orothiazide 12.5 mg tablet 12/20 completed Not Available Not Available Not Available lidocaine (PF) 10 mg/mL (1 %) injection solution In office injection administe red by the provider 06/[address] [facility]: 0409- 4276- 17 Not Available Not Available Not Available ropivacaine (PF) 5 mg/mL (0.5 %) injection solution Take 20 mg by injection route. 07/16 completed Not Available Not Available Not Available potassium chloride ER 20 mEq tablet,exte nded release TAKE 1 TABLETS BY MOUTH TWICE DAILY active Not Available Not Available No t Available Fluzone High-Dose 7533-8496 (PF) 180 mcg/0.5 mL intramuscul ar syringe ADM 0.5ML IM UTD 12/20 completed Not Available Not Available Not Available Vitals Date Recorded Body height Body mass index (BMI) Body weight Provider Name and Address Organization Details Last Updated DateTime 09/17/2023 154.94 cm 29.3 kg/m2 22755.82 g Elisabeth Kim [facility] 09/17/2023 10:03:26 Date Recorded Body height Body mass index (BMI) Body weight Provider Name and Address Organization Details Last Updated DateTime 09/24/2023 154.94 cm 29.1 kg/m2 88734.22 g Elisabeth Kim [facility] 09/24/2023 10:00:15 Date Recorded Body height Body mass index (BMI) Body weight Provider Name and Address Organization Details Last Updated DateTime 06/09/2024 154.94 cm 28.5 kg/m2 14018.45 g Elisabeth Kim [facility] 06/09/2024 09:40:28 Date Recorded Body height Body mass index (BMI) Body weight Provider Name and Address Organization Details Last Updated DateTime 06/16/2024 154.94 cm 28.7 kg/m2 95975.04 BERONICA Dorado Raquel [place] [employer] [facility] 06/16/2024 09:35:02 Date Recorded Body height Body mass index (BMI) Body weight Provider Name and Address Organization Details Last Updated DateTime 06/23/2024 154.94 cm 28.7 kg/m2 55794.04 BERONICA Dorado Raquel [place] [employer] [facility] 06/23/2024 09:33:43 Social History Question Answer Notes LastModified by Organizat ion Details LastModified Time Tobacco Smoking Status Former Smoker Not Available [facility] 11/05/2022 20:53:50 What Is Your Level Of Alcohol Consumption? None [id number] Information not available 11/05/2022 Sex: Unknown Functional Status None recorded. Mental Status None recorded. Family History Relationship Description Onset Age of this Age Resolved Age Notes LastModified by Organization Details LastModified Time Father Heart disease [id number] Not available 11/05/2022 20:53:54 Unspecified Relation Family history of stroke [id number] Not available 11/05/2022 20:53:54 Unspecified Relation Essential hypertension [id number] [id number] Not available 11/05/2022 20:53:54 Mother History of thyroid disorder [id number] Not available 11/05/2022 20:53:54 Brother Heart disease [id number] Not available 11/05/2022 20:53:54 Medical History Condition Response STROKE/TIA Y OSTEOPOROSIS Y ARTHRITIS Y USE OF BLOOD THINNERS Y HYPERTENSION Y Gynecological HistoryNo gynecological history recorded. Obstetrics History GPAL:G 0 P 0 0 0 0 Past Encounters Encounter ID Performer Location Encounter Start Date Encounter Closed Date Diagnosis/Indication Diagnosis SNOMED-CT Code Diagnosis ICD10 Code Diagnosis Note [id number] [facility] [place] [address] [place] [address] 01/14/2021 00:00:00 01/14/2021 14:30:23 [id number] [facility] [place] [address] [place] [address] 02/11/2021 00:00:00 02/11/2021 11:36:53 [id number] [facility] [place] [address] [place] [address] 04/15/2021 00:00:00 04/15/2021 10:00:02 [id number] [facility] [place] [address] [place] [address] 06/03/2022 00:00:00 06/03/2022 15:45:37 [id number] [facility] [place] [address] [place] [address] 07/15/2022 00:00:00 07/15/2022 15:01:25 [id number] [facility] [place] [address] [place] [address] 09/15/2022 00:00:00 09/15/2022 11:25:21 [id number] JOHN Levy [facility] [place] [address] [place] [address] 07/16/2023 14:15:17 07/16/2023 15:05:59 Osteoarthritis of left knee joint 7401087757 76283 M17.12 Pain of le ft knee joint 1073068293 14361 M25.562 Old anteri or cruciate ligament disruption 058068761 M23.52 [id number] JOHN Levy [facility] [place] [address] [place] [address] 09/09/2023 10:13:24 09/09/2023 11:45:26 Osteoarthritis of left knee joint 8849046779 53071 M17.12 Old disrup tion of ligament of knee 03732152 M23.52 Pain of le ft knee joint 7363661914 15914 M25.562 Pain of le ft hip joint 5158637772 13005 M25.552 Osteoarthr itis of left hip joint 4558513530 87629 M16.12 [id number] JOHN Levy [facility] [place] [address] [place] [address] 09/17/2023 10:01:44 09/17/2023 10:24:10 Old disruption of ligament of knee 01762169 M23.52 Osteoarthr itis of left knee joint 5266624155 53802 M17.12 Pain of le ft knee joint 5257693794 30123 M25.865 [id number] JOHN Levy [facility] [place] [address] [place] [address] 09/24/2023 09:54:58 09/24/2023 10:19:22 Old disruption of ligament of knee 25144560 M23.52 Osteoarthr itis of left knee joint 1805906981 71215 M17.12 Pain of le ft knee joint 3255305568 74778 M25.457 [id number] JOHN Levy [facility] [place] [address] [place] [address] 06/09/2024 09:37:07 06/09/2024 10:01:40 Osteoarthritis of left knee joint 2856436155 45002 M17.12 Pain of le ft knee joint 5510876443 87857 M25.122 [id number] JOHN Levy [facility] [place] [address] [place] [address] 06/16/2024 09:31:08 06/16/2024 09:52:56 Osteoarthritis of left knee joint 3468803885 91405 M17.12 Pain of le ft knee joint 1266311719 31576 M25.327 [id number] JOHN Levy [facility] [place] [address] [place] [address] 06/23/2024 09:29:35 06/23/2024 10:03:07 Osteoarthritis of left knee joint 9644945367 23883 M17.12 Pain of le ft knee joint 2654529398 72023 M25.562 Health Concerns Section Related Observation LastModified by Organization Detai ls LastModified Time None Recorded Concern Status LastModified by Organization Details LastModified Time None Recorded Advance Directives Directive None Recorded Payers Encounter Date Sequence Insurance Name Policy Number Policy Barth Covered Member ID Abrth Member ID Guarantor Name 09/17/2023 1 [place] Ana Rosa Patiño [id number] Ana Rosa Patiño 09/17/2023 2 [employer] HE[employer] OPTIONS (MEDICARE SUPPLEMENT) Ana Rosa Patiño [id number] Ana Rosa Patiño 09/24/2023 1 [place] Ana Rosa Patiño [id number] Ana Rosa Patiño 09/24/2023 2 [employer] HE[employer] OPTIONS (MEDICARE SUPPLEMENT) Ana Rosa Patiño [id number] Ana Rosa Patiño 06/09/2024 1 [place] Ana Rosa Patiño [id number] Ana Rosa Patiño 06/09/2024 2 [employer] HE[employer] OPTIONS (MEDICARE SUPPLEMENT) Ana Rosa Patiño [id number] Ana Rosa Patiño 06/16/2024 1 [place] Ana Rosa Patiño [id number] Ana Rosa Patiño 06/16/2024 2 [employer] HE[employer] OPTIONS (MEDICARE SUPPLEMENT) Ana Rosa Patiño [id number] Ana Rosa Patiño 06/23/2024 1 [place] Ana Rosa Patiño [id number] Ana Rosa Patiño 06/23/2024 2 [employer] HE[employer] OPTIONS (MEDICARE SUPPLEMENT) Ana Rosa Patiño [id number] Ana Rosa Patiño Notes Date Note Type Note Provider Name and Address Organization Details Recorded Time 09/17/2023 text/html Patient returns for Orthovisc injection number 2 left knee. She has moderate primary osteoarthritis tricompartmental in nature the left knee joint. She states the 1st injection has already started gave her some mild relief from her osteoarthritis pain. Denies any effusion or swelling no erythema heat or other signs of infection today. She comes in today for the 2nd round of the injections. JOHN Levy [address] [facility], [facility] [address], [place], [address], [facility] [employer] 09/17/2023 10:20:01 09/24/2023 text/html Patient returns for Orthovisc injection number 3 left knee. She states she is getting some moderate relief not quite where she wants to be yet. I have advised her to give it more time give the last shot at least a month and we will see how things go. Today she denies any effusion or swelling no erythema heat or other signs of infection. Previous x-rays show moderately severe primary osteoarthritis with significant narrowing in the medial and patellofemoral compartments of both knees. The left knee is the 1 that bothers her the most. JOHN Levy [address], [address], [place], [address], [facility] 09/24/2023 10:16:55 06/09/2024 text/html The patient retu rns we have not seen her for almost 9 months. Previously she had gel shots in her left knee she comes in today to repeat that round of injections once again. She had Orthovisc last time and is getting that today. She has some chronic left knee pain but the Orthovisc gave her excellent relief for 8-9 months recently her pain has started to flare up again it is not too bad but she wants to stay ahead of it. She denies any new symptoms noted trauma or injury no effusion or swelling no erythema heat or other signs of infection just has general aching pain worse with activity somewhat relieved by rest she has trouble squatting kneeling going up and down stairs can not stand or walk for long periods she states right now her pain is about a 2 on a scale 1-10 but at the end of the day it is much worse. She has chronic moderate primary osteoarthritis and likely an old ACL disruption. She has significant narrowing in the medial and patellofemoral compartments of both knees left knee bothers her the most.Her old past medical history data was reviewed with the patient today in detail she denies any specific new problems currently she is on blood thinners so she is unable to take oral anti-inflammatory nonsteroidals. JOHN Levy [address], [address], [place], [address], [facility] 06/09/2024 09:53:12 06/16/2024 text/html the patient retu rns for Orthovisc injection number 2 left knee. She has moderate primary osteoarthritis previous gel shot series have given her excellent relief for 8-9 months. Recently her pain started to flare up again she has chronic moderate primary osteoarthritis left knee with likely an old ACL disruption. She has narrowing moderate in nature tricompartmental. She states she is already getting some relief from the 1st injection she comes in today for Orthovisc injection number 2 left knee. JOHN Levy [address], [facility] [address], [place], [address], [employer] [facility] 06/16/2024 09:43:03 06/23/2024 text/html Patient returns for Orthovisc injection 3. Left knee. She has moderate primary osteoarthritis she has gotten excellent relief so far and did from the other series that she had previously which lasted her almost a year. She states she is walking comfortably has no pain whatsoever and quite pleased with the results so far. JOHN Levy [address], [address], [place], [address], [employer] [facility] 06/23/2024 10:01:00 OBGyn Episode No OBEpisode recorded.
--- OUTSIDE RECORDS SUMMARY | 2024-11-22 07:45 | XMS_ITS | Patient Health Summary ---
Author Organization [facility] Address [address] [place] [address] Care Team Providers Care Material Expediter Name Role Phone True Delacruz MD Primary Care Provider [phone] Note from [facility],non-owned Affiliates and Associated Physician Practices is amultiple site organization consisting of ambulatory clinics and hospital sitesin [place], [place], [place] and [place]. This disclosure is being madepursuant to the Care Everywhere program and may not contain all information available regarding this patient. Last updated 18.[facility] Allergies * Latex(Rash) -Medium Criticality * Meperidine(Other) -Low Criticality * Terfenadine(Skin Reactions) -Medium Criticality Medications * Be aware that medications may not be up to date on this document. Alwaysverify current medications with the patient. * calcium carbonate (OS-KEYANA 500) 1250 (500 CA) MG tablet(Started 09/30/2017) Take 1 tablet by mouth DAILY. * levothyroxine (SYNTHROID) 100 MCG tablet(Started 07/22/2017) Take 1 tablet by mouth DAILY. * Aspirin 81 MG(Started 09/23/2017) Take 81 mg by mouth DAILY. * Multiple Vitamin (MULTI VITAMIN DAILY) TABS Take 1 tablet by mouth once daily * fluticasone propionate (FLONASE) 50 MCG/ACT nasal spray(Started 09/21/2018) [place] 1 spray into each nostril as needed * ibuprofen (MOTRIN) 600 MG tablet(Started 02/23/2019) Take 600 mg by mouth as needed * ibandronate (BONIVA) 150 MG tablet Take 150 mg by mouth every 30 days * Ascorbic Acid (VITAMIN C GUMMIE PO) Take 2 tablets by mouth once daily * VITAMIN D PO Take 2,000 Units by mouth once daily * clopidogrel (PLAVIX) 75 MG tablet(Started 07/03/2021) Take 1 (one) tablet by mouth once daily 3 refills by 07/03/2022 * atorvastatin (LIPITOR) 80 MG tablet Take 80 mg by mouth once daily Active Problems Problem Noted Date Diagnosed Date Sinus bradycardia 01/07/2022 Idiopathic hypotension 01/07/2022 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 (FLUAD QUADRIVALENT; 65Y+) (AIIV4)(Given 06/03/2020) * INFLUENZA VACCINE, HIGH-DOSE, QUADR. (FLUZONE HIGH-DOSE QUADRIVALENT; 65Y+), 0.7 ML (HD-IIV4)(Given 06/04/2021, 05/24/2019, 06/06/2018, 06/08/2017, 06/23/2016) * INFLUENZA VACCINE, TRIV. (FLUZONE; FLULAVAL; FLUARIX; AFLURIA TRIVALENT; 6MO+), 0.5 ML (IIV3)(Given 06/18/2015) Social History Tobacco Use Types Packs/Day Years Used Date Smoking Tobacco: Former Cigarettes 0.3 40 1 973 - 2013 Smokeless Tobacco: Never Alcohol Use Standard Drinks/Week Comments No 0 (1 standard drink = 0.6 oz pur e alcohol) AUDIT-C Answer Date Recorded Q1: How often do you have a drink containing alcohol? Never 01/06/2022 Q2: How many drinks containi ng alcohol do you have on a typical day when you are drinking? Patient does not drink Q3: How often do you have si x or more drinks on one occasion? Never 01/06/2022 Sex and Gender Information Value Date Recorded Sex Assigned at Female 10/08/2020 6:27 PM PLAYGROUND AIDE Gender Identity Female 10/08/2020 6:27 PM PLAYGROUND AIDE Sexual Orientation Choose not to disclose 2020 6:27 PM PLAYGROUND AIDE Last Filed Vital Signs Vital Sign Reading Time Taken Comments Blood Pressure 150/77 02/21/2022 9:15 AM CDT Pulse 73 02/21/2022 9:15 AM CDT Temperature 36.6 C (97.8 F) 01/07/2022 8:00 AM CDT Respiratory Rate 12 02/21/2022 9:15 AM CDT Oxygen Saturation 99% 01/07/2022 10:00 AM CDT Inhaled Oxygen Concentration - - Weight 73.7 kg (162 lb 6.4 oz) 02/21/2022 9:15 A M CDT Height 154.9 cm (5' 1 ) 01/06/2022 6:20 AM CDT Body Mass Index 30.69 01/06/2022 6:20 AM CDT Medical Devices Explanted Type Area Lead Technologist In Cytogenetics Device Identifier Shelf Expiration Date Model / Serial / Lot Stent Xact 7-9mm 40mm Crtd Slf Xpd Cls - [id number] Explanted:Qty : 1 on 01/06/2022 at [facility] Stent - Vascular Right: Subclavian [employer] 02/04/2023 [id number] / [id number] / [id number] Stent Xact 7-9mm 30mm Crtd Slf Xpd Cls - [id number] Explanted:Qty : 1 on 01/06/2022 at [facility] Stent - Vascular Right: Subclavian [employer] 04/06/2023 [id number] / [id number] / [id number] Procedures * PT EVAL AND TREAT(Performed 01/06/2022) * PT-INR [facility](Performed 01/06/2022) Performed for Pre-procedure lab exam * CBC W AUTO DIFFERENTIAL(Performed 01/06/2022) Performed for Pre-procedure lab exam * BASIC METABOLIC PANEL (CALCIUM TOTAL)(Performed 01/06/2022) Performed for Pre-procedure lab exam * IR CAROTID OR VERTEBRAL STENT(Performed 01/06/2022) Performed for Subclavian steal syndrome * ARTERIAL LINE NOTE(Performed 01/06/2022) * ENDOTRACHEAL TUBE NOTE(Performed 01/06/2022) * PT-INR [facility](Performed 01/06/2022) Performed for Subclavian steal syndrome * CBC W AUTO DIFFERENTIAL(Performed 01/06/2022) Performed for Subclavian steal syndrome * BASIC METABOLIC PANEL (CALCIUM TOTAL)(Performed 01/06/2022) Performed for Subclavian steal syndrome * ACT LR - POCT ([facility])(Performed 01/06/2022) * ACT LR - POCT ([facility])(Performed 01/06/2022) * BLOOD TYPE VERIFICATION(Performed 01/06/2022) * TYPE + SCREEN PANEL(Performed 01/06/2022) Performed for Subclavian steal syndrome * IR CAROTID CEREBRAL ANGIOGRAM(Performed 07/22/2021) Performed for Carotid occlusion, right, Carotid aneurysm, left (HCC) * PT-INR [facility](Performed 07/22/2021) Performed for ICAO (internal carotid artery occlusion), right, Cerebral aneurysm (HCC) * CBC W AUTO DIFFERENTIAL(Performed 07/22/2021) Performed for ICAO (internal carotid artery occlusion), right, Cerebral aneurysm (HCC) * BASIC METABOLIC PANEL (CALCIUM TOTAL)(Performed 07/22/2021) Performed for ICAO (internal carotid artery occlusion), right, Cerebral aneurysm (HCC) * CT ANGIO BRAIN AND NECK(Performed 06/28/2021) Performed for Central retinal artery occlusion of right eye * CREATININE - POCT INTERFACED(Performed 06/28/2021) * OPH OCT TEST [facility](Performed 01/12/2020) Performed for Central retinal vein occlusion of right eye, unspecified complication status ([facility]) * OPH OCT TEST [facility](Performed 01/07/2019) Performed for Central retinal vein occlusion of right eye, unspecified complication status (HCC) * CT ANGIO BRAIN(Performed 07/20/2018) Performed for Brain aneurysm (HCC) * CREATININE BLOOD - POCT (IP) [facility](Performed 07/20/2018) Performed for Brain aneurysm (HCC) * OPH OCT TEST [facility](Performed 05/13/2018) Performed for Central retinal artery occlusion of right eye * CBC W AUTO DIFFERENTIAL(Performed 09/26/2017) * BASIC METABOLIC PANEL (CALCIUM TOTAL)(Performed 09/26/2017) * CBC W AUTO DIFFERENTIAL(Performed 09/26/2017) * GLUCOSE ACCUCHECK(Performed 09/25/2017) * IR US GUIDE VASCULAR ACCESS(Performed 09/25/2017) * IR CAROTID CEREBRAL ANGIOGRAM(Performed 09/25/2017) * IR CAROTID CEREBRAL ANGIOGRAM(Performed 09/25/2017) * PT-INR [facility](Performed 09/25/2017) * CBC W AUTO DIFFERENTIAL(Performed 09/25/2017) * BASIC METABOLIC PANEL (CALCIUM TOTAL)(Performed 09/25/2017) * CBC W AUTO DIFFERENTIAL(Performed 09/25/2017) * EKG 12-LEAD(Performed 09/25/2017) * TROPONIN I(Performed 09/24/2017) * MRI BRAIN WO CONTRAST(Performed 09/24/2017) * CBC W AUTO DIFFERENTIAL(Performed 09/24/2017) * HEMOGLOBIN A1C(Performed 09/24/2017) * ERYTHROCYTE SEDIMENTATION RATE(Performed 09/24/2017) * BASIC METABOLIC PANEL (CALCIUM TOTAL)(Performed 09/24/2017) * LIPID PROFILE(Performed 09/24/2017) * CBC W AUTO DIFFERENTIAL(Performed 09/24/2017) * C-REACTIVE PROTEIN(Performed 09/24/2017) * CT ANGIO BRAIN AND NECK(Performed 09/24/2017) * DRUG ABUSE PANEL 10-20+ETHANOL URINE NO CONFIRM(Performed 09/24/2017) * ECHO COMPLETE(Performed 09/24/2017) * EKG 12-LEAD(Performed 09/24/2017) * CBC W AUTO DIFFERENTIAL(Performed 09/23/2017) * HEMOGLOBIN A1C(Performed 09/23/2017) * TROPONIN I(Performed 09/23/2017) * COMPREHENSIVE METABOLIC PANEL(Performed 09/23/2017) * CBC W AUTO DIFFERENTIAL(Performed 09/23/2017) * DRUG ABUSE PANEL 10-20+ETHANOL URINE NO CONFIRM(Performed 09/23/2017) * DRUG ABUSE PANEL 10-20+ETHANOL URINE NO CONFIRM(Performed 09/23/2017) * URINALYSIS REFLEX TO MICROSCOPIC NO CULTURE(Performed 09/23/2017) Results * (ABNORMAL) PT-INR [facility] (01/06/2022 11:37 AM CDT) Only the most recent of4 resultswithin the time period is included. PT 15.0(H) 12.1 - 14.8 Seconds 01/06/2022 12:22 PM CDT [facility] INR 1.2 See Comment 01/06/2022 12:22 PM [facility] Comment:The suggested therap eutic range for standard coumadin (warfarin) therapy is an INR of 2.0-3.0. For high-risk patients (Mechanical Mitral Valve Prosthesis, etc.), the suggested prophylactic therapeutic range is an INR of 2.5-3.5. Blood BLOOD SPECIMEN / Unknown Venipuncture / Unknown 01/06/2022 11:37 AM CDT 01/06/2022 11:47 AM CDT Dave Lawson MD LAB - COAGULATION OR DERABLES Performing Organization Address [facility]/State/[facility] Co de Phone Number [facility] [address] [address], [facility] [phone] * (ABNORMAL) CBC W AUTO DIFFERENTIAL (01/06/2022 11:37 AM CDT) Only the most recent of11 resultswithin the time period is included. WBC 10.0 3.5 - 10.5 10 3/uL 01/06/2022 11:57 AM CDT [facility] RBC 3.79(L) 3.80 - 5.20 10 6/uL 01/06/2022 11:57 AM [facility] Hemoglobin 12.1 12.0 - 15.6 g/dL 01/06/2022 11:57 AM T [facility] Hematocrit 35.3 35.0 - 45.0 % 01/06/2022 11:57 AM T [facility] MCV 93.1 80.7 - 98.3 fL 01/06/2022 11:57 AM [facility] MCH 31.9 26.7 - 34.0 pg 01/06/2022 11:57 AM [facility] MCHC 34.3 30.8 - 35.9 g/dL 01/06/2022 11:57 AM [facility] Platelet Count 254 150 - 400 10 3/uL 01/06/2022 11:57 AM [facility] RDW-SD 41.8 36.0 - 50.0 fL 01/06/2022 11:57 AM [facility] RDW-CV 12.3 11.2 - 14.8 % 01/06/2022 11:57 AM [facility] MPV 10.6 9.4 - 12.9 fL 01/06/2022 11:57 AM [facility] nRBC Absolute 0.00 0 10 3/uL 01/06/2022 11:57 AM [facility] nRBC Auto 0.0 0 /100 WBC 01/06/2022 11:57 AM [facility] Neutrophils % 82.7(H) 35.0 - 70.0 % 01/06/2022 11:57 AM [facility] Lymphocytes % 13.6(L) 20.0 - 43.0 % 01/06/2022 11:57 AM [facility] Monocytes % 1.7(L) 5.0 - 13.0 % 01/06/2022 11:57 AM [facility] Eosinophils % 0.4 0.0 - 6.0 % 01/06/2022 11:57 AM [facility] Basophil % 0.5 0.0 - 2.0 % 01/06/2022 11:57 AM [facility] Neutrophils Absolute 8.2(H) 1.6 - 7.0 10 3/uL 01/06/2022 11:57 AM [facility] Lymphocyte Absolute 1.4 1.1 - 3.9 10 3/uL 01/06/2022 11:57 AM [facility] Monocytes Absolute 0.17(L) 0.26 - 1.07 10 3/uL 01/06/2022 11:57 AM [facility] Eosinophils Absolute 0.04 0.00 - 0.47 10 3/uL 01/06/2022 11:57 AM [facility] Basophils Absolute 0.05 0.00 - 0.08 10 3/uL 01/06/2022 11:57 AM [facility] Immature Granulocytes % 1.1(H) 0.0 - 1.0 % 01/06/2022 11:57 AM [facility] Immature Granulocytes Absolute 0.11 01/06/2022 11:57 AM [facility] Blood BLOOD SPECIMEN / Unknown Venipuncture / Unknown 01/06/2022 11:37 AM CDT 01/06/2022 11:51 AM CDT Dave Lawson MD LAB - HEMATOLOGY ORD ERABLES [facility] [address] [place] [id number], [facility] [phone] * (ABNORMAL) BASIC METABOLIC PANEL (CALCIUM TOTAL) (01/06/2022 11:37 AM T) Only the most recent of6 resultswithin the time period is included. BUN 8 7 - 26 mg/dL 01/06/2022 12:22 PM [facility] Creatinine 0.78 0.56 - 0.96 mg/dL 01/06/2022 12:22 PM [facility] Sodium 137 136 - 145 mmol/L 01/06/2022 12:22 PM [facility] Potassium 3.5 3.5 - 4.5 mmol/L 01/06/2022 12:22 PM [facility] Chloride 102 98 - 107 mmol/L 01/06/2022 12:22 PM [facility] CO2 25 22 - 29 mmol/L 01/06/2022 12:22 PM [facility] Glucose 152(H) 70 - 115 mg/dL 01/06/2022 12:22 PM [facility] Calcium 9.2 8.4 - 10.2 mg/dL 01/06/2022 12:22 PM [facility] Anion Gap 14 8 - 18 01/06/2022 12:22 PM CDT [facility] BUN/Creatinine Ratio 10 7 - 23 01/06/2022 12:22 PM CDT [facility] Osmolality Calculated 285 270 - 300 mOsm/kg 01/06/2022 12:22 PM CDT [facility] eGFR by CKD-EPI 80(L) >=90 mL/min/1.7 3 m2 01/06/2022 12:22 PM CDT [facility] Blood BLOOD SPECIMEN / Unknown Venipuncture / Unknown 01/06/2022 11:37 AM CDT 01/06/2022 11:51 AM CDT Dave Lawson MD LAB - CHEMISTRY [facility] Organization Address City/State/ZIP Co de Phone Number [facility] [address] [place] [address], [facility] [phone] * IR CAROTID OR VERTEBRAL STENT (01/06/2022 10:10 AM CDT) Anatomical Region Laterality Modality Head X-Ray Angiograph y 01/07/2022 5:34 PM CDT Impressions 01/18/2022 11:56 AM CDT Impression: -Successful angioplasty of the right subclavian and innominate arteries. -65% stenosis of the proximal right subclavian artery Dr. CHHAYA Larsen have personally reviewed and interpreted this examination/study. This report was electronically signed by CHHAYA MARIANO on 01/18/2022 11:56 AM . Narrative 01/18/2022 11:56 AM CDT Procedure: Cerebral angiogram and balloon angioplasty of the subclavian and innominate arteries Comparison study: Catheter angiogram on 07/22/2021 History: The patient a 76 years -year-old Female who presents > 70% symptomatic carotid stenosis by non-invasive vascular imaging. Pointer Helper: Florin Mariano Vessels: Ultrasound guided access of femoral artery Right radial artery angiogram Left subclavian artery angiogram: Cervical and cerebral Angioplasty with Aviator rapid exchange balloon Angiography through the existing catheter Right Subclavian artery angiogram: Cervical and cerebral Right femoral artery angiogram Anesthesia: Local anesthesia with conscious sedation Procedural detail: Dr Chhaya Larsen was present and performed/supervised the entire procedure. General anesthesia on this adult patient was ordered by me. For details on monitored clinical parameters during the intra-service sedation time, please review the Anesthesiology documentation in [facility]. The risks, benefits, and alternatives to procedure were discussed in detail with the patient and her family. These included but were not limited to the risk of blood loss, vessel injury, stroke, renal injury, and contrast allergy. The patient was brought to the biplane angiography suite where she underwent prep and drape procedures. Limited ultrasound of the common femoral artery demonstrated a patent vessel. The take off of the profunda and other arteries were identified. A wynne scale image was documented. The right radial artery was accessed using a micropuncture needle. The needle entry was documented. Following a series of exchanges, a 5 Uzbek vert catheter was navigated into the aortic arch. The diagnostic catheter was removed from the arterial system and a 9 mm by 40 mm angioplasty balloon was navigated into the innominate and subclavian arteries and used to perform an angioplasty of these vessels. The right femoral artery was then accessed and a 6 fr sheath was placed. A SIM 2 catheter was used to select the left subclavian artery and cervical and cerebral projections were obtained. All catheters and sheaths were removed from the arterial system. Hemostasis was achieved using a 6 Uzbek Angio-Seal closure device. Hemostasis was immediate at the end of the closure procedure. The right dorsalis pedis pulse was palpable at the end of the closure procedure. The patient tolerated the procedure without immediate complications. She was returned to the recovery area and hemodynamically stable condition neurologically unchanged. The estimated blood loss was less than 100 mL. A total of 17 minutes of fluoroscopic time and 45 ml of Omnipaque-300 contrast were utilized for the study. Findings: There was good arterial, capillary, and venous opacification of all angiographic runs. The left subclavian artery angiogram reveals a V3, V4, and vertebrobasilar junction that are normal in course and caliber. The major vessels to the cerebellum are normal in course and caliber. The basilar artery and posterior cerebral arteries are also normal in course and caliber. The venous drainage is also normal. The previously observed steal filling the right subclavian artery is no longer present after angioplasty. There is a 65 % stenosis in the proximal left subclavian artery. The right subclavian artery angiogram after angioplasty fills the right innominate artery and now reveals antegrade filling of the right common carotid artery. The right femoral artery angiogram reveals a puncture site above the femoral bifurcation. Procedure Note Chhaya Mariano MD - 01/18/2022 Procedure: Cerebral angiogram and balloon angioplasty of the subclavian and innominate arteries Comparison study: Catheter angiogram on 07/22/2021 History: The patient a 76 years -year-old Female who presents > 70% symptomatic carotid stenosis by non-invasive vascular imaging. Pointer Helper: Florin Mariano Vessels: Ultrasound guided access of femoral artery Right radial artery angiogram Left subclavian artery angiogram: Cervical and cerebral Angioplasty with Aviator rapid exchange balloon Angiography through the existing catheter Right Subclavian artery angiogram: Cervical and cerebral Right femoral artery angiogram Anesthesia: Local anesthesia with conscious sedation Procedural detail: I, Dr Chhaya Mariano was present and performed/supervised the entire procedure. General anesthesia on this adult patient was ordered by wy. For details on monitored clinical parameters during the intra-service sedation time, please review the Anesthesiology documentation in [facility]. The risks, benefits, and alternatives to procedure were discussed in detail with the patient and her family. These included but were not limited to the risk of blood loss, vessel injury, stroke, renal injury, and contrast allergy. The patient was brought to the biplane angiography suite where she underwent prep and drape procedures. Limitedultrasound of the common femoral artery demonstrated a patent vessel. The take offof the profunda and other arteries were identified. A wynne scale image was documented. The right radial artery was accessed using a micropuncture needle. The needle entry was documented. Following a series ofexchanges, a 5 Uzbek vert catheter was navigated into the aortic arch. The diagnostic catheter was removed from the arterial system and a 9 mm by 40 mm angioplasty balloon was navigated into the innominate and subclavian arteries and used to perform an angioplasty of these vessels. The right femoral artery was then accessed and a 6 fr sheath was placed.A SIM 2 catheter was used to select the left subclavian artery andcervical and cerebral projections were obtained. All catheters and sheaths were removed from the arterial system. Hemostasis was achieved using a 6 Uzbek Angio-Seal closure device. Hemostasis was immediate at the end of the closure procedure. The right dorsalis pedis pulse was palpable at the end of the closure procedure. The patient tolerated the procedure without immediate complications. She was returned to the recovery area and hemodynamically stable condition neurologically unchanged. The estimated blood loss was less than 100 mL. A total of 17 minutes of fluoroscopic time and 45 ml of Omnipaque-300 contrast were utilized for the study. Findings: There was good arterial, capillary, and venous opacification of all angiographic runs. The left subclavian artery angiogram reveals a V3, V4, andvertebrobasilar junction that are normal in course and caliber. The major vessels to the cerebellum are normal in course and caliber. The basilar artery and posterior cerebral arteries are also normal in course and caliber. The venous drainage is also normal. The previously observed steal fillingthe right subclavian artery is no longer present after angioplasty. There penny 65 % stenosis in the proximal left subclavian artery. The right subclavian artery angiogram after angioplasty fills the right innominate artery and now reveals antegrade filling of the right common carotid artery. The right femoral artery angiogram reveals a puncture site above the femoral bifurcation. Impression: -Successful angioplasty of the right subclavian and innominate arteries. -65% stenosis of the proximal right subclavian artery I, Dr. CHHAYA MARIANO have personally reviewed and interpreted this examination/study. This report was electronically signed by CHHAYA MARIANO on 01/18/2022 11:56 AM . Chhaya Mariano MD IR ORDERABLES * ARTERIAL LINE PERFORMABLE (01/06/2022 9:16 AM CDT) Narrative Anthony Kenyon Anes Asst - 01/06/2022 9:16 AM CDT Anthony Kenyon Anes Asst 01/06/2022 9:17 AM Arterial Line Placement Procedure Note Patient Location: OR. Procedure: Arterial Line (58592). Procedure Section Indications: continuous blood pressure monitoring and blood sampling needed. Skin Prep: Chloraprep. Orientation: Left. Site: radial. Site Identification: palpation. Sterile Technique: cap and mask. Gauge: 20. Catheter Length: 1 and 3/4 inch. Catheter Type: Arrow. Seldinger Technique Used? Yes Number of Attempts: 1. Line Secured with: tape and Tegaderm. Procedure Tolerance: tolerated well. Events: none. Procedure Start Time: 01/06/2022 8:18 AM. Patient Sedated? Yes Local Anesthetic Used? No Sedation Types: general anesthesia Staff Section Anesthesia Provider: Anthony Kenyon Anes Asst, Performed the procedure Anthony Curiel GENERAL ANEST HESIA ORDERABLES * ETT LINE PERFORMABLE (01/06/2022 9:14 AM CDT) Narrative Anthony Kenyon Anes Asst - 01/06/2022 9:14 AM CDT Anthony Kenyon Anes Asst 01/06/2022 9:15 AM Endotracheal Tube Placement: Patient Location: OR. Intubation Event Date/Time: 01/06/2022 8:13 AM Procedure: intubation (36093). Procedure Section: Sedation: under general anesthesia. Indications for Airway Management: anesthesia Procedure pretreatments used? No Induction: standard IV Patient Position: sniffing and supine Mask Ventilation: easy with oral airway. Blade Type: Pascual Blade Size: 2 Laryngoscopy View: grade 1 (full cords) Intubation Adjuncts: stylet Tube: endotracheal tube Placement: oral Tube type: cuff - inflated Tube Size (MM): 7 Depth of Insertion (CM): 21 Measured From: teeth Cuff volume (mL): 5 Cuff Inflated With: air Number of Attempts: 1. Placement Verified By: direct visualization, bilateral breath sounds, chest auscultation and CO2 detector CXR Findings: ETT in proper place. Tube secured with: ETT zhou and adhesive tape. Dentition unchanged? Yes Difficult Airway? No. Procedure Start Time: 01/06/2022 8:13 AM. Staff Section Anesthesia Provider: Anthony Kenyon Anes Asst Performed the procedure Anthony Curiel GENERAL ANEST HESIA ORDERABLES * ACT LR - POCT ([facility]) (01/06/2022 8:52 AM CDT) Only the most recent of2 resultswithin the time period is included. Pathologist [facility] ACT LR 139 See result comments sec 01/06/2022 8:56 AM CDT [facility] Blood BLOOD SPECIMEN / Unknown 01/06/2022 8:52 AM CDT 01/06/2022 8:56 AM CDT Narrative [facility] - 01/06/2022 8:56 AM CDT ACT-LR Therapeutics ranges are: Cardiac film laboratory technician = 200-300 seconds Sheath pull = ACT less than 170 seconds EPS lab = 200-240 seconds Sheath pull = ACT less than 140 seconds Radiology : CT/Angio lab = 200-300 seconds Sheath pull = ACT less than 200 seconds Expected range of normal volunteers: ACT-LR = 113-149 seconds Expected range of a Non-heparin patients: ACT-LR = 89-169 seconds From established ranges from the company manual Chhaya Mariano MD LAB - COAGULATION O RDERABLES Performing Organization Address City/[facility]/ZIP Co de Phone Number [facility] [address] [place] [id number], [facility] [phone] * BLOOD TYPE VERIFICATION (01/06/2022 6:58 AM CDT) ABO Rh A POS 01/06/2022 8:0 1 AM CDT [facility] BLOOD [facility] LAB Blood Bank BLOOD SPECIMEN / Unknown Lab Venipuncture / Unknown 01/06/2022 6:58 AM CDT 01/06/2022 7:13 AM CDT Provider Unknown LAB - BLOOD BANK ORD ERABLES Performing Organization Address [facility] Co de Phone Number [facility] BLOOD [facility]ANK LAB [address] [place] [id number], [facility] [phone] * TYPE + SCREEN PANEL (01/06/2022 6:37 AM CDT) Antibody Screen NEG 7:35 AM CDT [facility] BLOOD [facility] LAB ABO Rh A POS 01/06/2022 7:35 AM CDT [facility] BLOOD BANK LAB Blood Bank BLOOD SPECIMEN / Unknown Venipuncture / Unknown 01/06/2022 6:37 AM CDT 01/06/2022 6:44 AM CDT Chhaya Mariano MD LAB - BLOOD BANK OR DERABLES [facility]OD [facility] LAB [address] [place] [address], [facility] [phone] * IR CAROTID CEREBRAL ANGIOGRAM (07/22/2021 9:28 AM PLAYGROUND AIDE) Only the most recent of3 resultswithin the time period is included. 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 CHHAYA MARIANO have personally reviewed and interpreted this examination/study. This report was electronically signed by CHHAYA MARIANO on 07/25/2021 10:49 AM . Narrative 07/25/2021 10:49 AM PLAYGROUND AIDE Procedure: Cerebral angiogram 07/22/2021 Comparison study: 09/25/2020 History: The patient a 76 years -year-old Female. Who presents with hx of PREMA occlusionandLICA aneurysm. Toevaluate collateral circulation and angio architecture of the aneurysm. Pointer Helper: Florin Mariano Chief Medical Technologist(s): Gennaro Lawson Vessels: Ultrasound guided access of femoral artery Left vertebral artery angiogram: Cervical and Cerebral Left common carotid angiogram: Cervical and Cerebral Right brachiocephalic artery angiogram: Cervical Right femoral artery angiogram Anesthesia: Moderate sedation on this adult patient was ordered by the panel saw operator, administered intravenously in my presence, and monitored by the procedure nurse as an independent trained observer who was present throughout the procedure. The following parameters were monitored: oxygen saturation, heart rate, blood pressure, and response to care. Intra-service sedation start time was 0831 and end time was 0928 during which I was present. Total physician intra-service sedation time was 57 minutes. For details on sedation patient evaluation, please review the evaluation in EPIC. For details on monitored clinical parameters during the intra-service sedation time, please review the procedure nurse documentation in [facility]. Procedural detail: The risks, benefits, and alternatives to procedure were discussed in detail with the patient. These included but were not limited to the risk of blood loss, vessel injury, stroke, renal injury, and contrast allergy. The patient was brought to the biplane angiography suite where she underwent prep and drape procedures. Limited ultrasound of the common femoral artery demonstrated a patent vessel. The take off of the profunda and other arteries were identified. A wynne scale image was documented. The right common femoral artery was accessed using a micropuncture needle. The needle entry was documented. Following a series of exchanges, a 6 Uzbek 30 cm Brite tip sheath was placed in the right femoral artery and a 5 Uzbek Blanco 2 catheter was navigated into the aortic arch. The catheter was used to select the left subclavian artery and a cerebral angiogram was obtained, then used to select the left vertebral artery origin and a cerebral angiogram was obtained. The catheter was returned to the arch and used to select the left common carotid artery and a cerebral angiogram was obtained. The catheter was returned to the arch and used to select the brachiocephalic artery and a cerebral angiogram was obtained. The right femoral artery angiogram was obtained through the sheath. All catheters and sheaths were removed from the arterial system. Hemostasis was achieved using a 6 Uzbek Angio-Seal closure device. Hemostasis was immediate at the end of the closure procedure. The right dorsalis pedis pulse was palpable at the end of the closure procedure. The patient tolerated the procedure without immediate complications. She was returned to the recovery area and hemodynamically stable condition neurologically unchanged. The estimated blood loss was less than 10 mL. A total of 9.7 minutes of fluoroscopic time and 100 ml of Isovue-300 contrast were utilized for the study. Findings: There was good arterial, capillary, and venous opacification of all angiographic runs. The left vertebral artery angiogram reveals a V1, V2, V3, V4, and vertebrobasilar junction that are normal in course and caliber. Mild tortuosity of the V1, V2 and V3 segments. There is a retrograde flow from the right vertebrobasilar junction down to the subclavian artery (subclavian steal phenomenon). This was due to severe stenosis at the proximal segment of the brachiocephalic artery. Bilateral (AICAs, SCAs, PICAs), basilar artery, right posterior cerebral artery and right posterior communicating artery were visualized, normal in course and caliber. Some contrast opacification of the communicating segment of the right internal carotid artery and right middle cerebral artery territory. Normal venous drainage. The left common carotid artery angiogram reveals atherosclerosis at the carotid artery bifurcation with mild to moderate stenosis of the carotid bulb. Severe stenosis at the origin of the external carotid artery. Normal course and caliber of the intracranial internal carotid artery. There is a 4 mm x 3 mm saccular aneurysm in the cavernous segment of the left internal carotid artery, unchanged when compared to prior images. The middle cerebral artery and anterior cerebral artery are also normal in course and caliber as is the venous drainage. The left internal carotid artery supplies the right anterior circulation via the anterior communicating artery. The brachiocephalic artery angiogram reveals severe atherosclerosis and stenosis at the proximal segment of the brachiocephalic artery. This could explain the subclavian steal phenomenon noted in left vertebral artery angiogram. It also showed severe atherosclerosis at the origin of left common carotid and left subclavian arteries. The right common carotid and right internal carotid arteries were not visualized. The right femoral artery angiogram reveals a puncture site above the femoral bifurcation. Procedure Note Chhaya Mariano MD - 07/25/2021 Procedure: Cerebral angiogram 07/22/2021 Comparison study: 09/25/2020 History: The patient a 76 years -year-old Female. Who presents with hxof PREMA occlusionandLICA aneurysm. Toevaluate collateral circulation and angio architecture of the aneurysm. Pointer Helper: Florin Mariano Chief Medical Technologist(s): Gennaro Lawson Vessels: Ultrasound guided access of femoral artery Left vertebral artery angiogram: Cervical and Cerebral Left common carotid angiogram: Cervical and Cerebral Right brachiocephalic artery angiogram: Cervical Right femoral artery angiogram Anesthesia: Moderate sedation on this adult patient was ordered by the panel saw operator, administered intravenously in my presence, and monitored bythe procedure nurse as an independent trained observer who was present throughout the procedure. The following parameters were monitored:oxygen saturation, heart rate, blood pressure, and response to care. Intra-service sedation start time was 0831 and end time was 0928 during which I was present. Total physician intra-service sedation time was 57 minutes. For details on sedation patient evaluation, please review the evaluation in EPIC. For details on monitored clinical parameters during the intra-service sedation time, please review the procedure nurse documentation in [facility]. Procedural detail: The risks, benefits, and alternatives to procedurewere discussed in detail with the patient. These included but were notlimited to the risk of blood loss, vessel injury, stroke, renal injury, and contrast allergy. The patient was brought to the biplane angiographysuite where she underwent prep and drape procedures. Limited ultrasound ofthe common femoral artery demonstrated a patent vessel. The take off of the profunda and other arteries were identified. A wynne scale image was documented. The right common femoral artery was accessed using a micropuncture needle. The needle entry was documented. Following aseries of exchanges, a 6 Uzbek 30 cm Brite tip sheath was placed in the right femoral artery and a 5 Uzbek Blanco 2 catheter was navigated into the aortic arch. The catheter was used to select the left subclavian artery and a cerebral angiogram was obtained, then used to select the left vertebral artery origin and a cerebral angiogram was obtained. The catheter was returned to the arch and used to select the left common carotid artery and a cerebral angiogram was obtained. The catheter was returned to the arch and used to select the brachiocephalic artery and a cerebral angiogram was obtained. The right femoral artery angiogram was obtained through the sheath. All catheters and sheaths were removed from the arterial system. Hemostasis was achieved using a 6 Uzbek Angio-Seal closure device. Hemostasis was immediate at the end of the closure procedure. The right dorsalis pedis pulse was palpable at the end of the closure procedure. The patient tolerated the procedure without immediate complications. She was returned to the recovery area and hemodynamically stable condition neurologically unchanged. The estimated blood loss was less than 10 mL. A total of 9.7 minutes of fluoroscopic time and 100 ml of Isovue-300 contrast were utilized for the study. Findings: There was good arterial, capillary, and venous opacification of all angiographic runs. The left vertebral artery angiogram reveals a V1, V2, V3, V4, and vertebrobasilar junction that are normal in course and caliber. Mild tortuosity of the V1, V2 and V3 segments. There is a retrograde flowfrom the right vertebrobasilar junction down to the subclavian artery (subclavian steal phenomenon). This was due to severe stenosis at the proximal segment of the brachiocephalic artery. Bilateral (AICAs, SCAs, PICAs), basilar artery, right posterior cerebral artery and right posterior communicating artery were visualized, normal in course and caliber. Some contrast opacification of the communicating segment of the right internal carotid artery and right middle cerebral arteryterritory. Normal venous drainage. The left common carotid artery angiogram reveals atherosclerosis at the carotid artery bifurcation with mild to moderate stenosis of the carotid bulb. Severe stenosis at the origin of the external carotid artery.Normal course and caliber of the intracranial internal carotid artery. There penny 4 mm x 3 mm saccular aneurysm in the cavernous segment of the left internal carotid artery, unchanged when compared to prior images. The middle cerebral artery and anterior cerebral artery are also normal in course and caliber as is the venous drainage. The left internal carotid artery supplies the right anterior circulation via the anterior communicating artery. The brachiocephalic artery angiogram reveals severe atherosclerosis and stenosis at the proximal segment of the brachiocephalic artery. Thiscould explain the subclavian steal phenomenon noted in left vertebral artery angiogram. It also showed severe atherosclerosis at the origin of left common carotid and left subclavian arteries. The right common carotidand right internal carotid arteries were not visualized. The right femoral artery angiogram reveals a puncture site above the femoral bifurcation. 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 CHHAYA MARIANO have personally reviewed and interpreted this examination/study. This report was electronically signed by CHHAYA MARIANO on07/25/2021 10:49 AM . Chhaya Mariano MD IR ORDERABLES * CT ANGIO BRAIN AND NECK (06/28/2021 8:12 AM CDT) Only the most recent of2 resultswithin the time period is included. Anatomical Region Laterality Modality Head Computed Tomogra phy 06/28/2021 8:17 AM CDT Impressions 06/28/2021 8:45 AM CDT IMPRESSION: 1. No acute intracranial hemorrhage. 2. Interval complete occlusion of the right common carotid artery. Retrograde filling of the diffusely small right internal carotid artery. The caliber of the right internal carotid artery is grossly similar to the previous study. 3. Significant atherosclerotic disease at the left carotid bifurcation, causing less than 50 percent focal stenosis at the origin of the left internal carotid artery which is slightly ectatic. 4. Unchanged 3 x 4 mm medially directed aneurysm in the ophthalmic portion of the distal left internal carotid artery. This report was electronically signed by JULIO CESAR BARRIENTOS M.D. on 06/28/2021 8:45 AM . Narrative 06/28/2021 8:45 AM CDT EXAMINATION: 1. Computed tomographic (CT) angiography of the head without and with contrast 2. CT angiography of the neck with contrast HISTORY: H34.11: Central retinal artery occlusion of right eye TECHNIQUE: CT of the head was performed without contrast according to standard protocol. Then CT angiography of the head and neck was obtained after the uneventful administration of 100 mL Isovue-370 intravenous contrast. Three dimensional postprocessing was performed by the technologist and sent to the workstation for review. FINDINGS: Comparison is made with a study from 09/24/2017. Non-angiographic findings: No acute intra- or extra-axial fluid collections are identified. There is mild cerebral volume loss with associated ex vacuo ventricular dilatation. The basilar cisterns are patent. No mass effect or midline shift is seen. The wynne-white matter differentiation is normal. Periventricular white matter hypoattenuation is indicative of chronic small vessel ischemic disease. There is vascular calcification of the carotid siphons. The visualized portions of the orbits, paranasal sinuses, and mastoids appear normal. No acute fracture is identified. Erythematosus changes are noted in the visualized portions of the lungs. Severe multilevel degenerative disc and joint disease in the cervical spine. Angiographic findings: Neck: There is atherosclerotic disease of the aortic arch. The configuration of the brachiocephalic vessels is typical. There is atherosclerotic calcification of the innominate and subclavian arteries. There is a focal moderate stenosis at the origin of the right subclavian artery. There has been interval occlusion of the entire course of the right common carotid artery. There is attenuated retrograde filling of the right internal carotid artery which demonstrate diffusely small caliber. Scattered atherosclerotic disease is again noted in the left common carotid artery at the carotid bifurcation, causing less than 50 percent focal stenosis at the origin of the left internal carotid artery. The left internal carotid artery is mildly ectatic throughout its course. The cervical vertebral arteries are patent. Head: There is atherosclerotic disease involving the distal internal carotid arteries. There is a 3 x 4 mm medially directed aneurysm ophthalmic portion of the left internal carotid artery, grossly unchanged since the prior study. There is grossly unchanged mild to moderate stenosis of the vitreous portions of the distal right internal carotid artery. The distal left internal carotid arteries patent. The anterior and middle cerebral arteries are patent. The distal vertebral arteries are patent. The basilar artery and posterior cerebral arteries are patent with origin of both posterior cerebral arteries. No aneurysms, vascular occlusions, or intracranial stenoses are identified. Procedure Note Julio Cesar Barrientos MD - 06/28/2021 EXAMINATION: 1. Computed tomographic (CT) angiography of the head without and with contrast 2. CT angiography of the neck with contrast HISTORY: H34.11: Central retinal artery occlusion of right eye TECHNIQUE: CT of the head was performed without contrast according to standard protocol. Then CT angiography of the head and neck was obtained after the uneventful administration of 100 mL Isovue-370 intravenous contrast. Three dimensional postprocessing was performed by the technologist and sent to the workstation for review. FINDINGS: Comparison is made with a study from 09/24/2017. Non-angiographic findings: No acute intra- or extra-axial fluid collections are identified. Thereis mild cerebral volume loss with associated ex vacuo ventriculardilatation. The basilar cisterns are patent. No mass effect or midline shift isseen. The wynne-white matter differentiation is normal. Periventricular white matter hypoattenuation is indicative of chronic small vessel ischemic disease. There is vascular calcification of the carotid siphons. The visualized portions of the orbits, paranasal sinuses, and mastoids appear normal. No acute fracture is identified. Erythematosus changes are noted in the visualized portions of the lungs. Severe multilevel degenerative disc and joint disease in the cervical spine. Angiographic findings: Neck: There is atherosclerotic disease of the aortic arch. The configurationof the brachiocephalic vessels is typical. There is atherosclerotic calcification of the innominate and subclavian arteries. There is afocal moderate stenosis at the origin of the right subclavian artery. Therehas been interval occlusion of the entire course of the right common carotid artery. There is attenuated retrograde filling of the right internal carotid artery which demonstrate diffusely small caliber. Scattered atherosclerotic disease is again noted in the left common carotid artery at the carotid bifurcation, causing less than 50 percent focal stenosisat the origin of the left internal carotid artery. The left internalcarotid artery is mildly ectatic throughout its course. The cervical vertebral arteries are patent. Head: There is atherosclerotic disease involving the distal internal carotid arteries. There is a 3 x 4 mm medially directed aneurysm ophthalmic portion of the left internal carotid artery, grossly unchanged since the prior study. There is grossly unchanged mild to moderate stenosis of the vitreous portions of the distal right internal carotid artery. Thedistal left internal carotid arteries patent. The anterior and middle cerebral arteries are patent. The distal vertebral arteries are patent. The basilar artery and posterior cerebral arteries are patent with origin of both posterior cerebral arteries. No aneurysms, vascular occlusions, or intracranial stenoses are identified. IMPRESSION: 1. No acute intracranial hemorrhage. 2. Interval complete occlusion of the right common carotid artery. Retrograde filling of the diffusely small right internal carotid artery. The caliber of the right internal carotid artery is grossly similar tothe previous study. 3. Significant atherosclerotic disease at the left carotid bifurcation, causing less than 50 percent focal stenosis at the origin of the left internal carotid artery which is slightly ectatic. 4. Unchanged 3 x 4 mm medially directed aneurysm in the ophthalmicportion of the distal left internal carotid artery. This report was electronically signed by JULIO CESAR BARRIENTOS M.D. on 06/28/2021 8:45 AM . Chhaya Mariano MD CT ORDERABLES * CREATININE - POCT INTERFACED (06/28/2021 7:49 AM CDT) Creatinine POCT 0.69 0.30 - 1.30 mg/dL 06/28/2021 7:50 AM CDT [facility] eGFR >60 >60 mL/min/1.7 3 m2 06/28/2021 7:50 AM CDT [facility] Blood BLOOD SPECIMEN / Unknown 06/28/2021 7:49 AM CDT 06/28/2021 7:50 AM CDT Chhaya Mariano MD LAB - POINT OF CARE ORDERABLES [facility] [place] [address], [facility] [phone] * OCT (01/12/2020 9:08 AM CDT) Anatomical Region Laterality Modality Other 01/12/2020 9:08 AM CDT Temo Hurtado MD [facility] ORDERABLES * OPH OCT TEST [facility] (01/07/2019 10:55 AM CDT) Anatomical Region Laterality Modality Other 01/07/2019 10:5 5 AM CDT Sonal Meyer MD OPHTHALMOLOGY SERVIC ES ORDERABLES * CT ANGIO BRAIN (07/20/2018 10:58 AM PLAYGROUND AIDE) Anatomical Region Laterality Modality Head Computed Tomogra phy 07/20/2018 1:42 PM PLAYGROUND AIDE Impressions 07/20/2018 3:08 PM PLAYGROUND AIDE IMPRESSION: 1. No intracranial aneurysm identified. There is no evidence of aneurysm of internal carotid arteries especially in the cavernous region. Atherosclerosis of bilateral carotid siphons, unchanged from prior exam. 2. No acute intracranial hemorrhage. No large arterial occlusions or significant stenoses identified in the head. I, Dr. CHACHO CLINTON have personally reviewed and interpreted this examination/study. This report was electronically signed by CHACHO CLINTON on 07/20/2018 3:08 PM . Narrative 07/20/2018 3:08 PM PLAYGROUND AIDE EXAMINATION: Computed tomographic (CT) angiography of the head without and with contrast HISTORY: This is a 73-year-old female with previous diagnosis of a right central retinal artery occlusion with vision loss in her right eye. She reports that this is slowly gotten better but she continues to have central vision loss in her right eye. She reports no new neurological complaints. She has bilateral stenosis of the carotid bifurcations. There was an unofficial report of a small left cavernous ICA aneurysm 2 x 3 mm in size. However this may have been an artifact and is asymptomatic. TECHNIQUE: CT of the head was performed without contrast according to standard protocol. Then CT angiography of the head was obtained after the uneventful administration of 50 mL Isovue 370 intravenous contrast. Three dimensional postprocessing was performed by the technologist and sent to the workstation for review. COMPARISON: CT angiogram brain from 09/24/2017 NON-ANGIOGRAPHIC FINDINGS: No acute intra- or extra-axial fluid collections are identified. The wynne-white matter differentiation is normal. Periventricular white matter hypoattenuation is minimal indicative of senescent changes. There are atherosclerotic calcifications of the cavernous and supraclinoid portions of bilateral internal carotid arteries. There is mild cerebral volume loss without causing ex vacuo ventricular dilatation. The ventricles have a stable normal size and configuration. The basilar cisterns are patent. No mass effect or midline shift is seen.The visualized portions of the orbits, paranasal sinuses, and mastoids appear normal. No acute fracture is identified. ANGIOGRAPHIC FINDINGS: Other than calcification of the carotid siphons, the distal internal carotid arteries appear normal. In particular, there is no evidence of an aneurysm arising from the cavernous portion of either internal carotid artery. The anterior and middle cerebral arteries appear normal. [place] is complete and the communicating arteries are present. The distal vertebral arteries appear normal in V3 and V4 segments. The left vertebral artery is dominant. The basilar artery and posterior cerebral arteries appear normal. No aneurysms, vascular occlusions, or intracranial stenoses are identified. Procedure Note Chacho Clinton MD - 07/20/2018 EXAMINATION: Computed tomographic (CT) angiography of the head withoutand with contrast HISTORY: This is a 73-year-old female with previous diagnosis of a right central retinal artery occlusion with vision loss in her right eye. She reports that this is slowly gotten better but she continues to have central vision loss in her right eye. She reports no new neurological complaints. She has bilateral stenosis of the carotid bifurcations.There was an unofficial report of a small left cavernous ICA aneurysm 2 x 3 mm in size. However this may have been an artifact and is asymptomatic. TECHNIQUE: CT of the head was performed without contrast according to standard protocol. Then CT angiography of the head was obtained afterthe uneventful administration of 50 mL Isovue 370 intravenous contrast.Three dimensional postprocessing was performed by the technologist and sent to the workstation for review. COMPARISON: CT angiogram brain from 09/24/2017 NON-ANGIOGRAPHIC FINDINGS: No acute intra- or extra-axial fluid collections are identified. The wynne-white matter differentiation is normal. Periventricular whitematter hypoattenuation is minimal indicative of senescent changes. There are atherosclerotic calcifications of the cavernous and supraclinoidportions of bilateral internal carotid arteries. There is mild cerebral volume loss without causing ex vacuo ventricular dilatation. The ventricles have a stable normal size and configuration. The basilar cisterns are patent. No mass effect or midline shift is seen.The visualized portions of the orbits, paranasal sinuses, and mastoids appear normal. No acute fracture is identified. ANGIOGRAPHIC FINDINGS: Other than calcification of the carotid siphons, the distal internal carotid arteries appear normal. In particular, there is no evidence ofan aneurysm arising from the cavernous portion of either internal carotid artery. The anterior and middle cerebral arteries appear normal. [place] is complete and the communicating arteries are present. Thedistal vertebral arteries appear normal in V3 and V4 segments. The leftvertebral artery is dominant. The basilar artery and posterior cerebral arteries appear normal. No aneurysms, vascular occlusions, or intracranialstenoses are identified. IMPRESSION: 1. No intracranial aneurysm identified. There is no evidence of aneurysm of internal carotid arteries especially in the cavernous region. Atherosclerosis of bilateral carotid siphons, unchanged from prior exam. 2. No acute intracranial hemorrhage. No large arterial occlusions or significant stenoses identified in the head. I, Dr. CHACHO CLINTON have personally reviewed and interpreted this examination/study. This report was electronically signed by CHACHO CLINTON on 07/20/20183:08 PM . Richard Martinez MD CT ORDERABLES * (ABNORMAL) CREATININE BLOOD - POCT (IP) [facility] (07/20/2018 10:44 AM PLAYGROUND AIDE) Creatinine POCT 1.00 0.3 - 1.3 mg/dL [facility] POCT TESTING eGFR POCT 58(A) 60 ml/min [facility] POCT TESTING Blood BLOOD SPECIMEN / Unknown 07/20/2018 10:44 AM PLAYGROUND AIDE Richard Martinez MD LAB - POINT OF CARE ORDERABLES [facility] POCT TESTING [address] [phone] * OPH OCT TEST [facility] (05/13/2018 9:04 AM CDT) Anatomical Region Laterality Modality Other 05/13/2018 9:04 AM CDT Sonal Meyer MD OPHTHALMOLOGY SERVIC ES ORDERABLES * (ABNORMAL) GLUCOSE ACCUCHECK (09/25/2017 6:50 PM PLAYGROUND AIDE) Glucose, Fingerstick 149(H) 70-115mg/d L mg/dL [facility] JUAN (ALLAN) Comment:Pointer Helper: JOSE JIM 09/25/2017 6:50 PM PLAYGROUND AIDE Obed Lawton MD LAB - CHEMISTRY [facility]ULIAN RAG[facility] Performing Organization Address City/[facility] Co de Phone Number [facility] JUAN ([facility]AN) * IR US GUIDE VASCULAR ACCESS (09/25/2017 3:37 PM PLAYGROUND AIDE) Anatomical Region Laterality Modality Other Impressions 10/03/2017 5:25 PM PLAYGROUND AIDE Impression: 1. Bilateral atherosclerosis of internal carotid artery with less than 50 % stenosis. I, Dr. DENYS CUTLER M.D. have personally reviewed and interpreted this examination/study. This report was electronically signed by DENYS CUTLER M.D. on 10/03/2017 5:25 PM . Narrative 10/03/2017 5:25 PM PLAYGROUND AIDE Procedure: Cerebral angiogram 09-25-2017 Comparison study: none History: The patient a 72 years -year-old Female. Who presents with CRAO, CTA with moderate stenosis of bilateral ICA's,. Pt is here for catheter angiography to evaluate the degree of stenosis. Pointer Helper: Gui Barragan Vessels: Ultrasound guided access of femoral artery Right common carotid artery angiogram: Cervical Left common carotid artery angiogram: Cerebral Left vertebral artery angiogram: Cerebral Right femoral artery angiogram Anesthesia: Moderate sedation on this adult patient ws ordered by the panel saw operator, administered intravenously in my presence, and monitored by the procedure nurse as an independent trained observer who was present throughout the procedure. The following parameters were monitored: oxygen saturation, heart rate, blood pressure, and response to care. Intra-service sedation start time was 14:45 and end time was 15:22 during which I was present. Total physician intra-service sedation time was 37 minutes. For details on sedation patient evaluation, please review the evaluation in [facility]. For details on monitored clinical parameters during the intra-service sedation time, please review the procedure nurse documentation in [facility]. Procedural detail: The risks, benefits, and alternatives to procedure were discussed in detail with the patient and her family. These included but were not limited to the risk of blood loss, vessel injury, stroke, renal injury, and contrast allergy. The patient was brought to the biplane angiography suite where she underwent prep and drape procedures. Limited ultrasound of the common femoral artery demonstrated a patent vessel. The take off of the profunda and other arteries were identified. A wynne scale image was documented. The right common femoral artery was accessed using a micropuncture needle. The needle entry was documented. Following a series of exchanges, a 6 Uzbek 30 cm Brite tip sheath was placed in the right femoral artery and a 5 Uzbek Martin 2 catheter was navigated into the aortic arch. The catheter was used to select the left subclavian artery followed by the left vertebral artery and a cerebral angiogram was obtained. The catheter was returned to the arch and used to select the left common carotid artery and a cervical and cerebral angiogram was obtained. The catheter was returned to the arch and used to select the brachiocephalic artery followed by the right common carotid artery and a cervical angiogram was obtained. The right femoral artery angiogram was obtained through the sheath. All catheters and sheaths were removed from the arterial system. Hemostasis was achieved using a 6 Uzbek Angio-Seal closure device. Hemostasis was immediate at the end of the closure procedure. The right dorsalis pedis pulse was palpable at the end of the closure procedure. The patient tolerated the procedure without immediate complications. She was returned to the recovery area and hemodynamically stable condition neurologically unchanged. The estimated blood loss was less than 10 mL. A total of 12.4 minutes of fluoroscopic time and 100 ml of Omnipaque-300 contrast were utilized for the study. Findings: There was good arterial, capillary, and venous opacification of all angiographic runs. The left vertebral artery angiogram reveals a V3, V4, and vertebrobasilar junction that are normal in course and caliber. The major vessels to the cerebellum are normal in course and caliber. The basilar artery and posterior cerebral arteries are also normal in course and caliber. The venous drainage is also normal. The left common carotid artery angiogram reveals a normal course and caliber the intracranial internal carotid artery. The middle cerebral artery and anterior cerebral artery are also normal in course and caliber as is the venous drainage. The left cervical carotid artery angiogram demonstrates a calcified plaque at the carotid bulb and in the internal and external carotid artery. The stenosis of the left internal carotid artery is less than 50 %. The right common carotid artery angiogram reveals an ulcerated plaque at the internal cervical carotid artery. The degree of stenosis is less than 50 %. The middle cerebral artery and anterior cerebral artery are also normal in course and caliber as is the venous drainage. The right femoral artery angiogram reveals a puncture site above the femoral bifurcation. Procedure Note Denys Cutler MD - 12/09/2017 Procedure: Cerebral angiogram 09-25-2017 Comparison study: none History: The patient a 72 years -year-old Female. Who presents with CRAO,CTA with moderate stenosis of bilateral ICA's,. Pt is here for catheterangiography to evaluate the degree of stenosis. Pointer Helper: Gui Barragan Vessels: Ultrasound guided access of femoral artery Right common carotid artery angiogram: Cervical Left common carotid artery angiogram: Cerebral Left vertebral artery angiogram: Cerebral Right femoral artery angiogram Anesthesia: Moderate sedation on this adult patient ws ordered by theoperator, administered intravenously in my presence, and monitored by theprocedure nurse as an independent trained observer who was presentthroughout the procedure. The following parameters were monitored: oxygen saturation, heart rate, blood pressure,and response to care. Intra-service sedation start time was 14:45 and endtime was 15:22 during which I was present. Total physician intra-servicesedation time was 37 minutes. For details on sedation patient evaluation, please review the evaluation inEPIC. For details on monitored clinical parameters during theintra-service sedation time, please review the procedure nursedocumentation in [facility]. Procedural detail: The risks, benefits, and alternatives to procedure werediscussed in detail with the patient and her family. These included butwere not limited to the risk of blood loss, vessel injury, stroke, renalinjury, and contrast allergy. The patient was brought to the biplane angiography suite where she underwentprep and drape procedures. Limited ultrasound of the common femoral arterydemonstrated a patent vessel. The take off of the profunda and otherarteries were identified. A wynne scale image was documented. The right common femoral artery was accessedusing a micropuncture needle. The needle entry was documented. Following aseries of exchanges, a 6 Uzbek 30 cm Brite tip sheath was placed in theright femoral artery and a 5 Uzbek Martin 2 catheter was navigated into the aortic arch. The catheterwas used to select the left subclavian artery followed by the leftvertebral artery and a cerebral angiogram was obtained. The catheter wasreturned to the arch and used to select the left common carotid artery and a cervical and cerebral angiogram wasobtained. The catheter was returned to the arch and used to select thebrachiocephalic artery followed by the right common carotid artery and acervical angiogram was obtained. The right femoral artery angiogram was obtained through the sheath. All catheters and sheaths were removed from the arterial system.Hemostasis was achieved using a 6 Uzbek Angio-Seal closure device.Hemostasis was immediate at the end of the closure procedure. The rightdorsalis pedis pulse was palpable at the end of the closure procedure. The patient tolerated the procedure without immediate complications. Shewas returned to the recovery area and hemodynamically stable conditionneurologically unchanged. The estimated blood loss was less than 10 mL. A total of 12.4 minutes of fluoroscopic time and 100 ml of Omnipaque-300contrast were utilized for the study. Findings: There was good arterial, capillary, and venous opacification of allangiographic runs. The left vertebral artery angiogram reveals a V3, V4, and vertebrobasilarjunction that are normal in course and caliber. The major vessels to thecerebellum are normal in course and caliber. The basilar artery andposterior cerebral arteries are also normal in course and caliber. The venous drainage is also normal. The left common carotid artery angiogram reveals a normal course andcaliber the intracranial internal carotid artery. The middle cerebralartery and anterior cerebral artery are also normal in course and caliberas is the venous drainage. The left cervical carotid artery angiogram demonstrates a calcified plaque at thecarotid bulb and in the internal and external carotid artery. Thestenosis of the left internal carotid artery is less than 50 %. The right common carotid artery angiogram reveals an ulcerated plaque atthe internal cervical carotid artery. The degree of stenosis is less than50 %. The middle cerebral artery and anterior cerebral artery are alsonormal in course and caliber as is the venous drainage. The right femoral artery angiogram reveals a puncture site above thefemoral bifurcation. IMPRESSION Impression: 1. Bilateral atherosclerosis of internal carotid artery with less than 50% stenosis. I, Dr. DENYS CUTLER M.D. have personally reviewed and interpreted thisexamination/study. This report was electronically signed by DENYS CUTLER M.D. on10/03/2017 5:25 PM . Obed Lawton MD IR ORDERABLES * EKG 12-LEAD (09/25/2017 12:00 AM PLAYGROUND AIDE) Only the most recent of2 resultswithin the time period is included. Pathologist [facility] EKG [facility] RADIOLOGY Comment: Exam Date/Time: Sep 25 2017 18:47:40 Test Reason : chest pain Blood Pressure : / mmHG Vent. Rate : 060 BPM Atrial Rate : 060 BPM P-R Int : 146 ms QRS Dur : 072 ms QT Int : 442 ms P-R-T Axes : 046 028 050 degrees QTc Int : 442 ms Normal sinus rhythm Normal ECG When compared with ECG of 24-SEP-2017 14:10, No significant change was found Confirmed by MD Matt, Zoe ([id number]), assistant editor RUIZ ONEILL ([id number]) on 10/06/2017 1:44:36 PM Referred By: REFERRING NO Confirmed By:Zoe Gutierrez MD 09/25/2017 Obed Lawton MD ECG ORDERABLES [facility] RADIOLOGY * TROPONIN I (09/24/2017 9:31 AM PLAYGROUND AIDE) Only the most recent of2 resultswithin the time period is included. [facility] Troponin I 0.023 <0.032 ng/mL [facility] Blood specimen (specimen) BLOOD SPECIMEN / Unknown 09/24/2017 9:31 AM PLAYGROUND AIDE 09/24/2017 9:34 AM PLAYGROUND AIDE eHather Hamilton MD LAB - CHEMISTRY JULIAN RAGSDALE Performing Organization Address City/State/[facility] Co de Phone Number [address] [phone] * MRI BRAIN WO CONTRAST (09/24/2017 7:01 AM PLAYGROUND AIDE) Anatomical Region Laterality Modality Head Other Impressions 09/24/2017 9:55 AM PLAYGROUND AIDE IMPRESSION: 1. No MR evidence of acute cerebral infarction or other acute intracranial abnormality. This report was approved by Tony Allen M.D. on 09/24/2017 9:46 AM . I, Dr. DAE HANEY M.D. have personally reviewed and interpreted this examination/study. This report was electronically signed by DAE HANEY M.D. on 09/24/2017 9:55 AM . Narrative 09/24/2017 9:55 AM PLAYGROUND AIDE This is a summary report. The complete report is available in the patient's medical record. If you cannot access the medical record, please contact the sending organization for a detailed fax or copy. EXAMINATION: Magnetic resonance imaging (MRI) of the brain without contrast HISTORY: Acute decreased visual acuity in the right eye, concern for acute cerebral infarction TECHNIQUE: MRI of the brain was performed without contrast according to standard protocol. FINDINGS: Comparison is made with a study from earlier today. No evidence of acute or chronic hemorrhage is identified. No evidence of acute cerebral infarction is seen. There is mild cerebral volume loss with associated ex vacuo ventricular dilatation. No mass effect or midline shift is seen. Periventricular and subcortical white matter as well as pontine FLAIR hyperintensities likely represent sequelae of chronic small vessel ischemic disease. The corpus callosum and sella appear normal. The posterior fossa, brainstem, and craniocervical junction otherwise appear normal. Other than mild paranasal sinus disease, the visualized portions of the orbits, paranasal sinuses, and mastoids appear normal. Normal flow voids are demonstrated in the carotid arteries and basilar artery. The calvarium and visualized cervical spine appear normal. Procedure Note Dae Haney MD - 12/09/2017 This is a summary report. The complete report is available in thepatient's medical record. If you cannot access the medical record, pleasecontact the sending organization for a detailed fax or copy. EXAMINATION: Magnetic resonance imaging (MRI) of the brain withoutcontrast HISTORY: Acute decreased visual acuity in the right eye, concern for acutecerebral infarction TECHNIQUE: MRI of the brain was performed without contrast according tostandard protocol. FINDINGS: Comparison is made with a study from earlier today. No evidence of acute or chronic hemorrhage is identified. No evidence ofacute cerebral infarction is seen. There is mild cerebral volume loss withassociated ex vacuo ventricular dilatation. No mass effect or midlineshift is seen. Periventricular and subcortical white matter as well as pontine FLAIR hyperintensities likelyrepresent sequelae of chronic small vessel ischemic disease. The corpuscallosum and sella appear normal. The posterior fossa, brainstem, andcraniocervical junction otherwise appear normal. Other than mild paranasal sinus disease, the visualized portions of theorbits, paranasal sinuses, and mastoids appear normal. Normal flow voidsare demonstrated in the carotid arteries and basilar artery. The calvariumand visualized cervical spine appear normal. IMPRESSION IMPRESSION: 1. No MR evidence of acute cerebral infarction or other acute intracranialabnormality. This report was approved by Tony Allen M.D. on 09/24/2017 9:46 AM. I, Dr. DAE HANEY M.D. have personally reviewed and interpreted thisexamination/study. This report was electronically signed by DAE HANEY M.D. on 09/24/20179:55 AM . Heather Hamilton MD MR ORDERABLES * C-REACTIVE PROTEIN (09/24/2017 5:05 AM PLAYGROUND AIDE) C-Reactive Protein <0.5 <=0.5 mg/dL [facility] Blood specimen (specimen) BLOOD SPECIMEN / Unknown 09/24/2017 5:05 AM PLAYGROUND AIDE 09/24/2017 5:05 AM PLAYGROUND AIDE Heather Hamilton MD LAB - CHEMISTRY ORDE RABLES [address] [phone] * HEMOGLOBIN A1C (09/24/2017 5:05 AM PLAYGROUND AIDE) Only the most recent of2 resultswithin the time period is included. Hemoglobin A1c 6.1 4.4 - 6.3 % [facility] Estimated Average Glucose 128 mg/dL [facility] Comment: HbA1c Interpretation: Treatment target values recommended by ADA and other clinical organizations should be used to evaluate metabolic control in patients. Treatment Target Values: Normal : < 5.7% Pre-diabetes: 5.7-6.4% Diabetes: Equal to or greater than 6.5% Reference: [place] [employer] Standards of Care in Diabetes -2014 In patients 70 years and older consider HbA1c target range of 7.0-7.5% Reference: Diabetes Mellitus in Older People: Position Statement on behalf of the International Association of Gerontology and Geriatrics (IAGG), the Diabetes Working [employer] for Older People (EDWPOP), and the International Task Force of Experts in Diabetes. [place], et al. J [place] [employer]. 2012 Test results diagnostic of diabetes should be repeated for confirmation. The Tosoh G8 assay for the measurement of HbA1c is a National Glycohemoglobin Standardization Program (NGSP)certified method. Results for patients with HbE disease should be interpreted with caution as this hemoglobinopathy has been shown to interfere with the Tosoh G8 assay. Blood specimen (specimen) BLOOD SPECIMEN / Unknown 09/24/2017 5:05 AM PLAYGROUND AIDE 09/24/2017 5:05 AM PLAYGROUND AIDE Angel Packer MD LAB - [place] [address], [facility] [phone] * ERYTHROCYTE SEDIMENTATION RATE (09/24/2017 5:05 AM PLAYGROUND AIDE) Erythrocyte Sedimentation Rate Westergren 30 0 - 30 MM/HR [facility] Blood specimen (specimen) BLOOD SPECIMEN / Unknown 09/24/2017 5:05 AM PLAYGROUND AIDE 09/24/2017 5:05 AM PLAYGROUND AIDE Heather Hamilton MD LAB - HEMATOLOGY ORD ERABLES Performing Organization Address City/[facility]/ZIP Co de Phone Number [address] [phone] * LIPID PROFILE (09/24/2017 5:05 AM PLAYGROUND AIDE) Cholesterol Total 157 <200 mg/dL [facility] HDL 43 >40 mg/dL [facility] Comment: ATP III Classification of HDL Cholesterol: <40 mg/dL: Considered a major risk factor. >60 mg/dL: Considered a negative risk factor. LDL Calculated 89 <100 mg/dL [facility] Comment: ATP III Classification of LDL Cholesterol: <100 mg/dL: Optimal 100 - 129 mg/dL: Near Optimal/Above Optimal 130 - 159 mg/dL: Borderline High 160 - 189 mg/dL: High >190 mg/dL: Very High Triglycerides 123 <150 mg/dL [facility] Comment: ATP III Classification of Triglycerides: <150 mg/dL: Normal 150 - 199 mg/dL: Borderline High 200 - 400 mg/dL: High >500 mg/dL: Very High Blood specimen (specimen) BLOOD SPECIMEN / Unknown 09/24/2017 5:05 AM PLAYGROUND AIDE 09/24/2017 5:05 AM PLAYGROUND AIDE Heather Hamilton MD LAB - CHEMISTRY JULIAN RAGSDALE Performing Organization Address City/[facility]/ZIP Co de Phone Number [address] [phone] * DRUG ABUSE PANEL 10-20+ETHANOL URINE NO CONFIRM (09/24/2017 3:47 AM PLAYGROUND AIDE) Only the most recent of3 resultswithin the time period is included. Amphetamines Screen Urine Negative Negative: < 1000 ng/mL [facility] Barbiturates Screen Urine Negative Negative: < 200 ng/mL [facility] Benzodiazepine Screen Urine Negative Negative: < 200 ng/mL [facility] Opiates Urine Negative Negative: < 300 ng/mL [facility] Cocaine Metabolites Urine Negative Negative: < 300 ng/mL [facility] Phencyclidine Screen Urine Negative Negative: < 25 ng/ml [facility] Cannabinoids Screen Urine Negative Negative: <50 ng/mL [facility] Methadone Screen Urine Negative Negative: < 300 ng/mL [facility] Urine specimen (specimen) URINE / Unknown 09/24/2017 3:47 AM PLAYGROUND AIDE 09/24/2017 3:47 AM PLAYGROUND AIDE Narrative [facility] - 09/24/2017 4:03 AM PLAYGROUND AIDE The Urine Toxicology Screening Panel does not screen for Propoxyphene, Meprobamate, Carisoprodol, Trazodone, lyia-gcb-tyrgzsf medications and/or volatiles (Acetone, Isopropanol, Methanol or Ethylene Glycol). Ethanol, Salicylate, Acetaminophen, Tricyclic Antidepressants and several therapeutic drugs may be individually assayed in serum or plasma specimen. Toxicology testing by the [facility] is an aid to medical diagnosis and treatment of patients. No documented chain of custody was maintained. Results are intended to be used for clinical purposes only. Heather Hamilton MD LAB - URINE CHEMISTR Y ORDERABLES [facility] [address] [place] [address] * ECHO W DOPPLER AND COLOR FLOW (09/24/2017 12:00 AM PLAYGROUND AIDE) Anatomical Region Laterality Modality Other 09/24/2017 Heather Hamilton MD ECHOCARDIOGRAPHY RAD IANT * (ABNORMAL) COMPREHENSIVE METABOLIC PANEL (09/23/2017 10:27 PM PLAYGROUND AIDE) BUN 11 7 - 26 mg/dL [facility] Creatinine 0.8 0.6 - 1.2 mg/dL [facility] Sodium 143 136 - 145 mmol/L [facility] Potassium 3.7 3.5 - 4.5 mmol/L [facility] Chloride 104 98 - 107 mmol/L [facility] CO2 25 22 - 29 mmol/L [facility] Glucose 112 70 - 115 mg/dL [facility] Calcium 10.9(H) 8.4 - 10.2 mg/dL [facility] Protein Total 7.8 6.0 - 8.3 g/dL [facility] Albumin 4.2 3.4 - 5.0 g/dL [facility] Bilirubin Total 0.4 0.2 - 1.2 mg/dL [facility] Alkaline Phosphatase 76 40 - 150 Units/L [facility] ALT 26 0 - 55 Units/L [facility] AST 32 5 - 34 Units/L [facility] Anion Gap 18 8 - 18 [facility] BUN/Creatinine Ratio 14 7 - 23 [facility] Osmolality Calculated 296 270 - 300 mOsm/kg [facility] Albumin/Globulin Ratio 1.2 1.1 - 2.3 [facility] eGFR >60 >60 mL/min/1.7 3 m2 [facility] Blood specimen (specimen) BLOOD SPECIMEN / Unknown 09/23/2017 10:27 PM PLAYGROUND AIDE 09/23/2017 10:27 PM PLAYGROUND AIDE Angel Packer MD LAB - CHEMISTRY ORDERABLES Performing Organization Address City/State/[facility] Co de Phone Number [address] [phone] * (ABNORMAL) URINALYSIS REFLEX TO MICROSCOPIC NO CULTURE (09/23/2017 9:55 PM PLAYGROUND AIDE) Color UA Yellow Straw, Yellow, Colorless, Light Yellow [facility] Clarity UA Clear Clear [facility] Specific Holiday UA 1.004 1.001 - 1.030 [facility] pH UA 6.5 5.0 - 8.0 [facility] Protein UA Negative <=20 mg/dL [facility] Glucose UA Negative Negative mg/dL [facility] Ketone UA Negative Negative mg/dL [facility] Bilirubin UA Negative Negative mg/dL [facility] Blood UA Small(A) Negative [facility] Nitrite UA Negative Negative [facility] Leukocyte Esterase Negative Negative [facility] Urobilinogen UA <2.0 <2.0 mg/dL [facility] RBC UA 3 0 - 8 /HPF [facility] WBC UA 1 0 - 2 /HPF [facility] Bacteria UA Rare Rare, Occasional, None /HPF [facility] Squamous Epithelial Cells UA 2(H) 0 - 1 /HPF [facility] Mucus UA Rare(A) None /LPF [facility] Urine specimen (specimen) 09/23/2017 9:55 PM PLAYGROUND AIDE 09/23/2017 10:00 PM PLAYGROUND AIDE Angel Packer MD LAB - URINALYSIS ORDERABLES [facility] [address] [place] [address] Care Teams Material Expediter Relationship Specialty Start Date End Date True Delacruz MD [address] [place] [address] PCP - General 01/12/20
--- OUTSIDE RECORDS SUMMARY | 2024-11-22 07:45 | XMS_ITS | Referral Summary ---
Author Organization [facility] [employer] Address [address] [place] [address] Care Team Providers Care Corporate Administrative Assistant Name Role Phone True Delacruz MD Primary Care Provider Source Comments [facility],non-owned Affiliates and Associated Physician Practices is amultiple site organization consisting of ambulatory clinics and hospital sitesin [place], [place], [place] and [place]. This disclosure is being madepursuant to the Care Everywhere program and may not contain all information available regarding this patient. Last updated 18.[facility] Allergies Active Allergy Reactions Criticality Noted Date Comments Latex Rash Medium 01/06/2022 Meperidine Other Low 09/23/2017 hypotension Terfenadine Skin Reactions Medium 09/23/2017 Medications * Be aware that medications may not be up to date on this document. Alwaysverify current medications with the patient. Medication Sig Dispensed Refills Start Date End Date Status calcium carbonate (OS-KEYANA 500) 1250 (500 CA) MG tablet Take 1 tablet by mouth DAILY. 09/30/2017 Active levothyroxine (SYNTHROID) 100 MCG tablet Take 1 tablet by mouth DAILY. 07/22/2017 Active Aspirin 81 MG Take 81 mg by mouth DAILY. 09/23/2017 Active Multiple Vitamin (MULTI VITAMIN DAILY) TABS Take 1 tablet by mouth once daily Active fluticasone propionate (FLONASE) 50 MCG/ACT nasal spray [place] 1 spray into each nostril as needed 09/21/2018 Active ibuprofen (MOTRIN) 600 MG tablet Take 600 mg by mouth as needed 02/23/2019 Active ibandronate (BONIVA) 150 MG tablet Take 150 mg by mouth every 30 days Active Ascorbic Acid (VITAMIN C GUMMIE PO) Take 2 tablets by mouth once daily Active VITAMIN D PO Take 2,000 Units by mouth once daily Active clopidogrel (PLAVIX) 75 MG tablet Take 1 (one) tablet by mouth once daily 90 tablet 3 07/03/2021 Active atorvastatin (LIPITOR) 80 MG tablet Take 80 mg by mouth once daily Active Active Problems Problem Noted Date Diagnosed Date Sinus bradycardia 01/07/2022 Idiopathic hypotension 01/07/2022 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 (FLUAD QUADRIVALENT; 65Y+) (AIIV4) 06/03/2020 INFLUENZA VACCINE, HIGH-DOSE , QUADR. (FLUZONE HIGH-DOSE QUADRIVALENT; 65Y+), 0.7 ML (HD-IIV4) 06/04/2021,05/24/2019,06/06/2018, 017,06/23/2016 INFLUENZA VACCINE, TRIV. (FL UZONE; FLULAVAL; FLUARIX; AFLURIA TRIVALENT; 6MO+), 0.5 ML (IIV3) 06/18/2015 Social History Tobacco Use Types Packs/Day Years Used Date Smoking Tobacco: Former Cigarettes 0.3 40 1 973 - 2012 Smokeless Tobacco: Never Alcohol Use Standard Drinks/Week [...] Sex Assigned at Female 10/08/2020 6:27 PM NAVIGATION OFFICER Gender Identity Female 10/08/2020 6:27 PM NAVIGATION OFFICER Sexual Orientation Choose not to disclose 2020 6:27 PM NAVIGATION OFFICER Last Filed Vital Signs Vital Sign Reading [...] Mass Index 30.69 01/06/2022 6:20 AM CDT Functional Status Functional Status Response Date of Assess ment Is person deaf or have serious hearing difficult y? No 01/06/2022 Is person blind or have serious difficulty seein g? No 01/06/2022 Does person have serious dif ficulty walking/climbing stairs? No 01/06/2022 Does person have difficulty dressing/bathing? No 01/06/2022 Does person have difficulty doing errands alone? No 01/06/2022 Cognitive Status Response Date of Assessm ent Does person have difficulty concentrating/remembering/making decisions? No 01/06/2022 Plan of Treatment Not on file Medical Devices Explanted Type Area Orthopaedic Nurse Device Identifier Shelf Expiration Date Model / Serial / Lot Stent Xact 7-9mm 40mm Crtd Slf Xpd Cls - [id number] Explanted:Qty : 1 on 01/06/2022 at [facility] Stent - Vascular Right: Subclavian Dasilva Vascular 02/04/2023 [id number] / [id number] / [id number] Stent Xact 7-9mm 30mm Crtd Slf Xpd Cls - [id number] Explanted:Qty : 1 on 01/06/2022 at [facility] Stent - Vascular Right: Subclavian Dasilva Vascular 04/06/2023 [id number] / [id number] / [id number] Advance Directives * Full Code (Latest Code Status on File) Date Activated Date Inactivated Comments 01/06/2022 4:59 PM 01/07/2022 1:17 PM Care Teams Corporate Administrative Assistant Relationship Specialty Start Date End Date True Delacruz MD [address] [place] [address] PCP - General 01/12/20
--- OUTSIDE RECORDS SUMMARY | 2024-11-22 07:45 | XMS_ITS | Continuity of Care Document ---
Author Organization [facility] Address [address] [place] [address] Phone Care Team Providers Care Nuclear Radiation Engineer Name Role Phone Unavailable Unavailable Unavailable Procedures Procedure Date Postop followup visit Postop followup visit Postop followup visit Knee arthscpy mnsctmy medial or lat Arthro, loose body + chondro Office/outpatient visit,[facility] 2007 X-ray exam of knee, 1 or2 views 008 X-ray exam of both knees, standing Advance Directives Directive Yes / No Effective Date File Name No Information Encounters Encounter Description Practice Location Reason(s) For Visit Diagnoses Date Provider Providers Copied on Encounter [facility], [address], [id number], tel:[phone] [facility] No Information 8 No Information Referring Provider: Robby Parra, [address] [place] [address], [id number]. tel:[phone] [facility], [address], [id number], [place] tel:[phone] [employer] [employer] [facility] No Information 8 No Information Referring Provider: Robby Parra, [address] [place] [address], [address]. tel:[phone] [facility], [address], [id number], tel:[phone] [facility] No Information 8 No Information Referring Provider: Robby Parra, [address] [place] [address], [id number]. tel:[phone] [facility], [address], [id number], [place] tel:[phone] [facility] No Information 8 No Information Referring Provider: Robby Parra, [address] [place] [address], [id number]. tel:[phone] Office/outpat ient visit,[facility], [address], [id number], [place] tel:[phone] [facility] No Information 8 No Information Referring Provider: Ramana Bingham, [address] [place] [address], [id number] . tel:[phone] Family History Family Member Type Diagnosis Age At Onset No Information Payers Payer name Insurance type Covered libertarian ID Authorantonietaa lingbharat(s) Elieco Mccollum [id number] Social History Type Description Quantity Date Captured [...]
--- OUTSIDE RECORDS SUMMARY | 2024-11-22 07:45 | XMS_ITS | Clinical Summary ---
Author Organization [facility] [employer] Address [address] [facility] [place] [address] Care Team Providers Care Produce Service Team Member Name Role Phone True Delacruz MD Primary Care Provider [phone] Source Comments [facility],non-owned Affiliates and Associated Physician Practices is amultiple site organization consisting of ambulatory clinics and hospital sitesin [place], [place], [place] and [place]. This disclosure is being madepursuant to the Care Everywhere program and may not contain all information available regarding this patient. Last updated 18.[facility] [employer] Allergies Active Allergy Reactions Criticality Noted Date [...] fluticasone propionate (FLONASE) 50 MCG/ACT nasal spray [place] 1 spray into each nostril as needed [...] AFLURIA TRIVALENT; 6MO+), 0.5 ML (IIV3) 06/18/2015 Family History Medical History Relation Name Comments CAD (Coronary Artery Disease) Brother age 51 CAD (Coronary Artery Disease) Father CVA Father Glaucoma Neg Hx Relation Name Status Comments Brother Father Social History Tobacco Use Types Packs/Day Years [...] Sex Assigned at Female 10/08/2020 6:27 PM SUPERINTENDENT MECHANICAL Gender Identity Female 10/08/2020 6:27 PM SUPERINTENDENT MECHANICAL Sexual Orientation Choose not to disclose 2020 6:27 PM SUPERINTENDENT MECHANICAL Last Filed Vital Signs Vital Sign Reading [...] Mass Index 30.69 01/06/2022 6:20 AM CDT Plan of Treatment Health Maintenance Due Date Last Done Comments BONE DENSITY TESTING 1945 MEDICARE AWV 12 MONTHS 1945 HEPATITIS C SCREENING 04/16/1965 DTAP/TDAP/TD VACCINES (1 - Tdap) 1966 PNEUMOCOCCAL VACCINE 50+ (1 of 1 - PCV) 1997 ZOSTER VACCINE (1 of 2) 1997 Respiratory Syncytial Virus (RSV) Vaccine Pt: or over 60 yrs (1 - 1-dose 75+ series) 2022 COVID-19 VACCINE (4 - season) 2024 08/14/2021, 11/27/2020, 10/30/2020 INFLUENZA VACCINE (#1) 2024 , 06/03/2020, 05/24/2019, Additional history exists DEPRESSION SCREENING 09/07/2024 HEPATITIS B VACCINE Aged Out No longe r eligible based on patient's age to complete this topic HIB VACCINE Aged Out No longer eligi ble based on patient's age to complete this topic HPV VACCINE Aged Out No longer eligi ble based on patient's age to complete this topic MENINGOCOCCAL (Group B) VACCINE SHARED DECISION-MAKING Aged Out No longer eligible based on patient's age to complete this topic MENINGOCOCCAL GROUPS A/C/Y/W VACCINE Aged Out No longer eligible based on patient's age to complete this topic Medical Devices Explanted Type Area Telecommunications Analyst Device Identifier Shelf Expiration Date Model / Serial / Lot Stent Xact 7-9mm 40mm Crtd Slf Xpd Cls - [id number] Explanted:Qty : 1 on 01/06/2022 at [facility] Stent - Vascular Right: Subclavian Dasilva Vascular 02/04/2023 [id number] / [id number] / [id number] Stent Xact 7-9mm 30mm Crtd Slf Xpd Cls - [id number] Explanted:Qty : 1 on 01/06/2022 at [facility] Stent - Vascular Right: Subclavian Dasilva Vascular 04/06/2023 [id number] / [id number] / [id number] Advance Directives * Full Code (Latest Code Status on File) Date Activated Date Inactivated Comments 01/06/2022 4:59 PM 01/07/2022 1:17 PM Care Teams Produce Service Team Member Relationship Specialty Start Date End Date True Delacruz MD [address] [place] [address] PCP - General 01/12/20
--- OUTSIDE RECORDS SUMMARY | 2024-11-22 07:45 | XMS_ITS | Encounter Summary ---
Author Organization [facility] Address [address] [place] [address] Care Team Providers Care Complaint Inspector Name Role Phone True Delacruz MD Primary Care Provider [phone] Reason for Visit * Reason Onset Date Comments MEDICATION REFILL 06/28/2022 Encounter Details Date Type Department Care Team (Late st Contact Info) Description 06/28/2022 Refill [facility] [address] [place] [address] Bobby Rajan MD [address] [address] MEDICATION REFILL Social History Tobacco Use Types Packs/Day Years [...] Sex Assigned at Female 10/08/2020 6:27 PM GLASS CUTTING MACHINE OPERATOR Gender Identity Female 10/08/2020 6:27 PM GLASS CUTTING MACHINE OPERATOR Sexual Orientation Choose not to disclose 2020 6:27 PM GLASS CUTTING MACHINE OPERATOR documented as of this encounter Functional Status Functional Status Response Date of [...] person have difficulty concentrating/remembering/making decisions? No 01/06/2022 documented as of this encounter Plan of Treatment Not on file documented as of this encounter Visit Diagnoses Not on filedocumented in this encounter Care Teams Complaint Inspector Relationship Specialty Start Date End Date True Delacruz MD [address] [place] [address] PCP - General 01/12/20 documented as of this encounter
--- OUTSIDE RECORDS SUMMARY | 2024-11-22 07:45 | XMS_ITS | Continuity of Care Document ---
Author Organization [employer] [facility] Address [address] [place] [address] Phone Care Team Providers Care Educational Paraprofessional Name Role Phone Gerald Gonzalez MD Unavailable Unavailable Advance Directives Directive Yes / No Effective Date File Name No Information Encounters Encounter Description Practice Location Reason(s) For Visit Diagnoses Date Provider Providers Copied on Encounter [facility], [address], [place], [place], [id number], [place] tel:[phone] [facility] No Information Carlos Duarte. [address] [place] [address], [id number], [place]. tel:[phone] Family History Family Member Type Diagnosis Age At Onset No Information Payers Payer name Insurance type Covered green party ID Authoriza tion(s) MEDICARE [id number] AARP MDCR SUPPLEMENT ONLY CI [id number] Social History Type Description Quantity Date Captured [...]
[2024-11-22 08:19] LABS: Basophils Absolute Auto 0.1 K/mm3 (0.0-0.1); Basophils Percent Auto 0.6 % (0.2-1.2); Eosinophils Absolute Auto 0.1 K/mm3 (0-0.3); Eosinophils Percent Auto 1.5 % (0-4.4); Hematocrit 37.8 % (37.0-47.0); Hemoglobin 12.6 g/dL (12.0-15.0); Immature Granulocyte Absolute 0.04 K/mm3 (0.00-0.031); Immature Granulocyte Percent A 0.5 % (0-0.5); Lymphocytes Absolute Auto 1.98 K/mm3 (0.9-3.2); Lymphocytes Percent Auto 24.2 % (18.3-44.2); Mean Corpuscular HGB Conc 33.3 g/dl (32-36); Mean Corpuscular Hemoglobin 32.4 pg (26-34); Mean Corpuscular Volume 97.2 fl (80-100); Mean Platelet Volume 10.8 fl (7.4-10.4); Monocytes Absolute Auto 0.7 K/mm3 (0.1-0.6); Monocytes Percent Auto 8.8 % (2.6-8.5); Neutrophils Absolute Auto 5.3 K/mm3 (1.3-6.7); Neutrophils Percent Auto 64.4 % (45.5-73.1); Platelet Count Result 302 k/mm3 (150-375); Red Blood Count 3.89 M/mm3 (4.2-5.4); Red Cell Distribution Width 12.5 % (11.5-14.5); White Blood Count 8.2 K/mm3 (4.5-10.0)
[2024-11-22 08:34] LABS: Alanine Aminotransferase 27 U/L (6-35); Albumin Level 4.4 g/dL (3.5-5.1); Alkaline Phosphatase 79 U/L (38-126); Anion Gap 6 mmol/L (4-12); Aspartate Amino Transferase 34 U/L (14-36); Bilirubin,Total 0.5 mg/dL (0.2-1.3); Blood Urea Nitrogen 12 mg/dL (7-17); Calcium 9.8 mg/dL (8.4-10.2); Carbon Dioxide 31 mmol/L (22-30); Chloride 101 mmol/L (98-107); Cholesterol 121 mg/dL (0-200); Estimated Glomerular Filt Rate > 60; Glucose 108 mg/dL (65-110); HDL Direct 39 mg/dL; Potassium 3.8 mmol/L (3.4-5.0); Sodium 138 mmol/L (137-145); Triglycerides 143 mg/dL (<150)
[2024-11-22 08:45] LABS: LDL Cholesterol Direct 48 mg/dL
[2024-11-22 10:22] LABS: Vitamin D 25 Hydroxy 82.8 ng/mL
[2024-11-22 11:04] LABS: Hemoglobin A1C 5.6 % (<5.7)
== END 2024-11-22 07:41 | disposition home or self-care (01) ==
PROVIDERS: PCP Nurse Practitioner Family; Visit Provider Nurse Practitioner Family
DX: E55.9 Vitamin D deficiency, unspecified (principal); I10 Essential (primary) hypertension; R73.03 Prediabetes; Z86.73 Personal history of transient ischemic attack (TIA), and cerebral infarction without residual deficits; E78.00 Pure hypercholesterolemia, unspecified; E03.9 Hypothyroidism, unspecified; D12.6 Benign neoplasm of colon, unspecified; M85.80 Other specified disorders of bone density and structure, unspecified site; I65.29 Occlusion and stenosis of unspecified carotid artery
CPT/HCPCS: 36415; 80053; 80061; 82306; 83036; 84443; 85025

== ENCOUNTER 2024-12-01 01:23 | Day surgery (SDC) | payer MEDICARE, SELFPAY ==
[2024-11-23 15:40] VITALS: BMI 28.7
--- NOTE | 2024-11-23 16:07 | PC.NURSE ---
Spoke with patient regarding medication Plavix. Patient verbalizes understanding that the last dose is to be taken on 11/26/2024 and the Endoscopist will instruct them when to restart after the procedure.
--- OUTSIDE RECORDS SUMMARY | 2024-12-01 01:26 | XMS_ITS | Clinical Summary ---
Author Organization [facility] [employer] Address [address] [place] [address] Care Team Providers Care Calculus Teacher Name Role Phone True Delacruz MD Primary Care Provider [phone] Source Comments [facility],non-owned Affiliates and Associated Physician Practices is amultiple site organization consisting of ambulatory clinics and hospital sitesin [place], [place], [place] and [place]. This disclosure is being madepursuant to the Care Everywhere program and may not contain all information available regarding this patient. Last updated 18.[facility] [employer] Allergies Active Allergy Reactions Criticality Noted Date [...] fluticasone propionate (FLONASE) 50 MCG/ACT nasal spray [place] 1 spray into each nostril as needed [...] Sex Assigned at Female 10/08/2020 6:27 PM BASTING MACHINE OPERATOR Gender Identity Female 10/08/2020 6:27 PM BASTING MACHINE OPERATOR Sexual Orientation Choose not to disclose 2020 6:27 PM BASTING MACHINE OPERATOR Last Filed Vital Signs Vital Sign Reading [...] this topic Medical Devices Explanted Type Area Cruise Staff Member Device Identifier Shelf Expiration Date Model / Serial / Lot Stent Xact 7-9mm 40mm Crtd Slf Xpd Cls - [id number] Explanted:Qty : 1 on 01/06/2022 at [facility] Stent - Vascular Right: Subclavian Dasilva V[employer] 02/04/2023 [id number] / [id number] / [id number] Stent Xact 7-9mm 30mm Crtd Slf Xpd Cls - [id number] Explanted:Qty : 1 on 01/06/2022 at [facility] Stent - Vascular Right: Subclavian Dasilva Vascular 04/06/2023 [id number] / [id number] / [id number] Advance Directives * Full Code (Latest Code Status on File) Date Activated Date Inactivated Comments 01/06/2022 4:59 PM 01/07/2022 1:17 PM Care Teams Calculus Teacher Relationship Specialty Start Date End Date True Delacruz MD [address] [place] [address] PCP - General 01/12/20
--- OUTSIDE RECORDS SUMMARY | 2024-12-01 01:26 | XMS_ITS | Data Portability ---
Author Organization [place] [facility], Main Office Address [address] [place] [address] Assessment Encounter Date Assessment Date Assessment LastModified [...] DO Not Attach Compendium, Do Not Delete/merge, [id number] 4 09:35:28 knee aspiration /injection (PROC) 2023 024 [email or web address] In-Office Order, Internal Use Only DO Not Attach Compendium DO Not Attach Compendium, Do Not Delete/merge, [id number] 4 09:36:24 knee aspiration /injection (PROC) 2023 024 [email or web address] In-Office Order, Internal Use Only DO Not Attach Compendium DO Not Attach Compendium, Do Not Delete/merge, [id number] 4 09:42:34 knee aspiration /injection (PROC) 2023 024 [email or web address] In-Office Order, Internal Use Only DO Not Attach Compendium DO Not Attach Compendium, Do Not Delete/merge, 75911 4 10:02:14 knee aspiration /injection (PROC) 2023 024 [email or web address] In-Office Order, Internal Use Only DO Not Attach Compendium DO Not Attach Compendium, Do Not Delete/merge, [id number] 4 10:04:50 Surgeries None recorded. Imaging None recorded. Medication Orders ORTHOVISC 30 mg/2 mL intra-gisell cular syringe 2023 024 [email or web address] [id number], [address], [place], [place], [id number], 4 10:55:40 ORTHOVISC 30 mg/2 mL intra-gisell cular syringe 2023 024 [email or web address] [id number], [address], [place], [place], [id number], 4 09:52:43 ORTHOVISC 30 mg/2 mL intra-gisell cular syringe 2023 024 [email or web address] [id number], [address], [place], [place], [id number], 4 09:53:35 ORTHOVISC 30 mg/2 mL intra-gisell cular syringe 2023 024 [email or web address] [id number], [address], [place], [place], [id number], 4 10:21:41 ORTHOVISC 30 mg/2 mL intra-gisell cular syringe 2023 024 [email or web address] [id number], [address], [place], [place], [id number], 4 11:07:39 Patient TargetsNo targets recorded. Patient InstructionsNo instructions recorded. Reason for Referral None Reported. Results Created Date Observation Date Name Description Value Unit Range Abnormal Flag Note LastModifiedBy Organization Detail LastModifiedTime 09/09/19 24 XR, hip + pelvi s, unila teral No observ ation record ed. [email or web address] [facility] [place] [address], [place], [address], 09/09/2023 11:35:24 Result Notes None recorded. Problems Name Problem SNOMED Code Status Onset Date Resolution Date Notes Provider Name and Address Organization Details Recorded Time Tendinitis of left rotator cuff 1658371518536 9101 Active 2022 Not Available [facility] 3 20:54:12 Localized, primary osteoarthr itis of the hand 141578015 Active Not Available [facility] 3 20:54:12 Pain in left arm 658890218 Active 2022 Not Available [facility] 3 20:54:12 Osteoarthr itis of left knee joint 3406561574074 09 Active 2021 Not Available [facility] 3 20:54:12 Pain of left knee joint 9314088623009 07 Active 2022 Not Available [facility] 3 20:54:12 Old anterior cruciate ligament disruption 463459185 Active 2022 JOHN Levy [address], [place], [address] , [employer] 3 15:20:41 Old disruption of ligament of knee 04302523 Active 2023 ЕКАТЕРИНА Mendieta, [employer] [facility] [employer] 4 10:18:49 Pain of left hip joint 9636260664982 00 Active 2023 EH Law, [employer] 4 10:48:30 Osteoarthr itis of left hip joint 8823038209138 08 Active 2023 JOHN Levy [address], [address], [place], [address] , [employer] [facility] [employer] [facility] 4 11:35:39 Problem Notes None recorded. Procedures Surgical History Date Name Laterality Status Provider Name and Address Organization Details Recorded Time Angioplasty completed BERONICA Rao [facility] [employer] [facility] 07/16/2023 14:35:24 Imaging Results Imaging Date Name Status LastModified by Organiz ation Details LastModified Time 09/09/2023 XR, hip + pelvis, unilateral completed [email or web address] [facility] [place] [address], [place], [address], 09/09/2023 11:35:24 Procedure Notes None recorded. Medical Equipment None Reported. Allergies Allergen ID Allergen Name Allergen Category Reaction Reaction Severity Criticality Documentation Date Start Date Code Code System Note Provider Name and Address Organization Details Recorded Time 31398 Seldane medicatio n hives Not available Not available 11/05/2022 35376 0 RxNorm Not Available [facility] 3 20:54:50 53484 Demerol medicatio n Not available Not available Not available 11/05/2022 67580 1 RxNorm low blood press ure BERONICA Rao, [facility] [employer] [facility] 3 14:32:36 38234 latex environme nt,medica tion itching Not available Not available 07/16/2023 19880 91 [facility] [employer] [facility] 3 14:32:59 Medications Name Sig Start Date [...] 20 mg by injection route. 2022 active [facility]: 0003- 0494- 20 Not Available Not Available [...] administe red by the provider 06/03 completed [facility]: 0409- 4276- 17 Not Available Not Available Not Available ropivacaine (PF) 5 mg/mL (0.5 %) injection solution Take 20 mg by injection route. 07/16 completed Not Available Not Available Not Available potassium chloride ER 20 mEq tablet,exte nded release TAKE 1 TABLETS BY MOUTH TWICE DAILY active Not Available Not Available No t Available Fluzone High-Dose 8664-7079 (PF) 180 mcg/0.5 mL intramuscul ar syringe ADM 0.5ML IM UTD 12/20 completed Not Available Not Available Not Available Vitals Date Recorded Body height Body mass index (BMI) Body weight Provider Name and Address Organization Details Last Updated DateTime 09/17/2023 154.94 cm 29.3 kg/m2 02537.82 g Elisabeth Kim [facility] [employer] 09/17/2023 10:03:26 Date Recorded Body height Body mass index (BMI) Body weight Provider Name and Address Organization Details Last Updated DateTime 09/24/2023 154.94 cm 29.1 kg/m2 11817.22 g Elisabeth Kim [facility] [employer] 09/24/2023 10:00:15 Date Recorded Body height Body mass index (BMI) Body weight Provider Name and Address Organization Details Last Updated DateTime 06/09/2024 154.94 cm 28.5 kg/m2 09580.45 g Elisabeth Kim [facility] [employer] 06/09/2024 09:40:28 Date Recorded Body height Body mass index (BMI) Body weight Provider Name and Address Organization Details Last Updated DateTime 06/16/2024 154.94 cm 28.7 kg/m2 62299.04 BERONICA Dorado [place] [employer] [facility] 06/16/2024 09:35:02 Date Recorded Body height Body mass index (BMI) Body weight Provider Name and Address Organization Details Last Updated DateTime 06/23/2024 154.94 cm 28.7 kg/m2 58506.04 BERONICA Dorado [place] [employer] [facility] 06/23/2024 09:33:43 Social History Question Answer Notes LastModified by Organizat ion Details LastModified Time Tobacco Smoking Status Former Smoker Not Available [facility] 11/05/2022 20:53:50 What Is Your Level Of Alcohol Consumption? None [id number] Information not available 11/05/2022 Sex: Unknown Functional Status None recorded. Mental Status None recorded. Family History Relationship Description Onset Age of this Age Resolved Age Notes LastModified by Organization Details LastModified Time Father Heart disease [email or web address].489 [id number] Not available 11/05/2022 20:53:54 Unspecified Relation Family history of stroke MIGRATION.213 [id number] Not available 11/05/2022 20:53:54 Unspecified Relation Essential hypertension MIGRATION.965 [id number] Not available 11/05/2022 20:53:54 Mother History of thyroid disorder MIGRATION.442 [id number] Not available 11/05/2022 20:53:54 Brother Heart disease MIGRATION.142 [id number] Not available 11/05/2022 20:53:54 Medical History Condition Response ARTHRITIS Y OSTEOPOROSIS Y USE OF BLOOD THINNERS Y HYPERTENSION Y STROKE/TIA Y Gynecological HistoryNo gynecological history recorded. Obstetrics History GPAL:G 0 P 0 0 0 0 Past Encounters Encounter ID Performer Location Encounter Start Date Encounter Closed Date Diagnosis/Indication Diagnosis SNOMED-CT Code Diagnosis ICD10 Code Diagnosis Note [id number] [facility] [place] [address] [place] [address] 01/14/2021 00:00:00 01/14/2021 14:30:23 [id number] [facility] [place] [address] [place] [address] 02/11/2021 00:00:00 02/11/2021 11:36:53 [id number] [facility] [place] [address] [place] [address] 04/15/2021 00:00:00 04/15/2021 10:00:02 [id number] [facility] [place] [address] [place] [address] 06/03/2022 00:00:00 06/03/2022 15:45:37 [id number] [facility] [place] [address] [place] [address] 07/15/2022 00:00:00 07/15/2022 15:01:25 [id number] [facility] [place] [address] [place] [address] 09/15/2022 00:00:00 09/15/2022 11:25:21 [id number] JOHN Levy [facility] [place] [address] [place] [address] 07/16/2023 14:15:17 07/16/2023 15:05:59 Osteoarthritis of left knee joint 2564037162 53335 M17.12 Pain of le ft knee joint 2954595571 98284 M25.562 Old anteri or cruciate ligament disruption 459628351 M23.52 [id number] JOHN Levy [facility] [place] [address] [place] [address] 09/09/2023 10:13:24 09/09/2023 11:45:26 Osteoarthritis of left knee joint 3492683526 23031 M17.12 Old disrup tion of ligament of knee 42585972 M23.52 Pain of le ft knee joint 0878942436 87706 M25.562 Pain of le ft hip joint 2854974229 20183 M25.552 Osteoarthr itis of left hip joint 9979145768 24309 M16.12 [id number] JOHN Levy [facility] [place] [address] [place] [address] 09/17/2023 10:01:44 09/17/2023 10:24:10 Old disruption of ligament of knee 33331343 M23.52 Osteoarthr itis of left knee joint 9061896898 39927 M17.12 Pain of le ft knee joint 2865058820 32986 M25.994 [id number] JOHN Levy [facility] [place] [address] [place] [address] 09/24/2023 09:54:58 09/24/2023 10:19:22 Old disruption of ligament of knee 36350886 M23.52 Osteoarthr itis of left knee joint 9785322909 63548 M17.12 Pain of le ft knee joint 8288460903 43248 M25.004 [id number] JOHN Levy [facility] [place] [address] [place] [address] 06/09/2024 09:37:07 06/09/2024 10:01:40 Osteoarthritis of left knee joint 9169272052 18941 M17.12 Pain of le ft knee joint 8167284383 07871 M25.571 [id number] JOHN Levy [facility] [place] [address] [place] [address] 06/16/2024 09:31:08 06/16/2024 09:52:56 Osteoarthritis of left knee joint 9197031892 12507 M17.12 Pain of le ft knee joint 7137061247 35709 M25.859 [id number] JOHN Levy [facility] [place] [address] [place] [address] 06/23/2024 09:29:35 06/23/2024 10:03:07 Osteoarthritis of left knee joint 9342586518 45119 M17.12 Pain of le ft knee joint 5489708606 14998 M25.562 Health Concerns Section Related Observation LastModified by Organization Detai ls LastModified Time None Recorded Concern Status LastModified by Organization Details LastModified Time None Recorded Advance Directives Directive None Recorded Payers Encounter Date Sequence Insurance Name Policy Number Policy Barth Covered Member ID Barth Member ID Guarantor Name 09/17/2023 1 [place] Ana Rosa Patiño [id number] Ana Rosa Patiño 09/17/2023 2 AARP HE[employer] OPTIONS (MEDICARE SUPPLEMENT) Ana Rosa Patiño [id number] Ana Rosa Patiño 09/24/2023 1 [place] Ana Rosa Patiño [id number] Ana Rosa Patiño 09/24/2023 2 [employer] HE[employer] OPTIONS (MEDICARE SUPPLEMENT) Ana Rosa Patiño [id number] Ana Rosa Patiño 06/09/2024 1 [place] Ana Rosa Patiño [id number] Ana Rosa Patiño 06/09/2024 2 [employer] HE[employer] OPTIONS (MEDICARE SUPPLEMENT) Ana Rosa Patiño [id number] Ana Rosa Patiño 06/16/2024 1 [place] Ana Rosa Patiño [id number] Ana Rosa Patiño 06/16/2024 2 [employer] HEALTHCARE OPTIONS (MEDICARE SUPPLEMENT) Ana Rosa Patiño [id number] Ana Rosa Patiño 06/23/2024 1 [place] Ana Rosa Patiño [id number] Ana Rosa Patiño 06/23/2024 2 [employer] HE[employer] OPTIONS (MEDICARE SUPPLEMENT) Ana Rosa Patiño [id number] Ana Rosa Patiño Notes Date Note Type [...] round of the injections. JOHN Levy [address] [facility] [facility] [address], [place], [address], [facility] [employer] 09/17/2023 10:20:01 09/24/2023 text/html [...] JOHN Levy [address], [place], [address], [employer] 09/24/2023 10:16:55 06/09/2024 text/html The patient retu [...] JOHN Levy [address], [address], [place], [address], [employer] 06/09/2024 09:53:12 06/16/2024 text/html the patient retu [...] left knee. JOHN Levy [address], [facility] [address], [place], [address], [employer] [facility] 06/16/2024 09:43:03 06/23/2024 text/html Patient returns for [...] JOHN Levy [address], [place], [address], [employer] [facility] 06/23/2024 10:01:00 OBGyn Episode No OBEpisode recorded.
--- OUTSIDE RECORDS SUMMARY | 2024-12-01 01:26 | XMS_ITS | Encounter Summary ---
Author Organization [facility] Address [address] [facility] [place] [address] Care Team Providers Care X Ray Physician Name Role Phone True Delacruz MD Primary Care Provider [phone] Reason for Visit * Reason Onset Date Comments MEDICATION REFILL 06/28/2022 Encounter Details Date Type Department Care Team (Late st Contact Info) Description 06/28/2022 Refill [facility] [address] [place] [address] Bobby Rajan MD [address] [address] MEDICATION REFILL Social History Tobacco [...] Sex Assigned at Female 10/08/2020 6:27 PM [employer] Gender Identity Female 10/08/2020 6:27 PM [employer] Sexual Orientation Choose not to disclose 2020 6:27 PM [employer] documented as of this encounter Functional Status [...] on filedocumented in this encounter Care Teams X Ray Physician Relationship Specialty Start Date End Date True Delacruz MD [address] [place] [address] PCP - General 01/12/20 documented as of this encounter
--- OUTSIDE RECORDS SUMMARY | 2024-12-01 01:26 | XMS_ITS | Continuity of Care Document ---
Author Organization [facility] Address [address] [place] [address] Phone Care Team Providers Care Wallpaperer Name Role Phone Gerald Gonzalez MD Unavailable Unavailable Advance Directives Directive Yes / No Effective Date File Name No Information Encounters Encounter Description Practice Location Reason(s) For Visit Diagnoses Date Provider Providers Copied on Encounter [facility], [address], [place], [place], [id number], [place] tel:[phone] [facility] No Information Carlos Duarte. [address] [place] [address], [id number], [place]. tel:[phone] Family History Family Member Type Diagnosis Age At Onset No Information Payers Payer name Insurance type Covered constitution party ID Authoriza tion(s) MEDICARE [id number] AARP MDCR SUPPLEMENT ONLY [place] [id number] Social History Type Description Quantity Date Captured [...]
--- OUTSIDE RECORDS SUMMARY | 2024-12-01 01:26 | XMS_ITS | Continuity of Care Document ---
Author Organization [facility] Address [address] [place] [address] Phone Care Team Providers Care Parks Recreation Coordinator Name Role Phone Unavailable Unavailable Unavailable Procedures Procedure Date Postop followup visit Postop followup visit Postop followup visit Knee arthscpy mnsctmy medial or lat Arthro, loose body + chondro Office/outpatient visit,[facility] 2007 X-ray exam of knee, 1 or2 views 008 X-ray exam of both knees, standing Advance Directives Directive Yes / No Effective Date File Name No Information Encounters Encounter Description Practice Location Reason(s) For Visit Diagnoses Date Provider Providers Copied on Encounter [email or web address], [address], [id number], tel:[phone] [email or web address] No Information 8 No Information Referring Provider: Robby Parra, [address] [place] [address], [address]. tel:[phone] [email or web address], [address], [id number], [place] tel:[phone] [employer] [facility] No Information 8 No Information Referring Provider: Robby Parra, [address] [place] [address], [address]. tel:[phone] [email or web address], [address], [id number], tel:[phone] [email or web address] No Information 8 No Information Referring Provider: Robby Parra, [address] [place] [address], [address]. tel:[phone] [email or web address], [address], [id number], [place] tel:[phone] [facility] No Information 8 No Information Referring Provider: Robby Parra, [address] [place] [address], [address]. tel:[phone] Office/outpat ient visit,[facility], [address], [id number], [place] tel:[phone] [email or web address] No Information 8 No Information Referring Provider: Ramana Bingham, [address] [place] [address], [address] . tel:[phone] Family History Family Member Type Diagnosis Age At Onset No Information Payers Payer name Insurance type Covered alliance party ID Authorantonietaa lingbharat(s) Eliceo Mccollum [id number] Social History Type Description Quantity Date Captured [...]
[2024-12-01 07:13] VITALS: BP 96/56; PULSE 74; RESP 15; TEMP 36.1; O2SAT 100; BMI 28.2
[2024-12-01] MEDS: LACTATED RINGERS 1,000 ML 150 ML IV CONT (07:25)
--- NOTE | 2024-12-01 07:54 | WPDANESEPPF ---
Anes - Initial Pre Proc Eval Procedure: Operation Date: 12/01/24 08:30 Proposed Procedures p Colonoscopy - Levar Mays MD Date/Time: 12/01/24 07:54 Surgeon: Levar Mays MD Pre Op Diagnosis: Benign neoplasm of colon Patient Data Age: 79 Gender: F Height: 1.55 m Weight: 67.8 kg Last Vital Signs Temp 97 F L 12/01/24 07:13 Pulse 74 12/01/24 07:13 Resp 15 12/01/24 07:13 BP 96/56 L 12/01/24 07:13 Pulse Ox 100 12/01/24 07:13 O2 Del Method Room Air 12/01/24 07:13 Allergies Allergy/AdvReac Type Severity Reaction Status Date / Time meperidine Allergy Unknown SEVERE Verified 12/01/24 07:11 HYPOTENSION terfenadine Allergy Unknown Hives Verified 12/01/24 07:11 Home Medications ?Medication ?Instructions ?Recorded ?Confirmed ?Type aspirin 81 mg tablet,delayed 81 mg PO DAILY 08/01/19 12/01/24 History release (Aspir-) calcium ER 600 mg (as carb,cit)-D3 2 tablet PO DAILY 08/01/19 12/01/24 History 12.5 mcg (500 unit) tablet, ext.rel (Citracal-D3 Slow Release) cholecalciferol (vitamin D3) 25 2,000 unit PO DAILY 08/01/19 12/01/24 History mcg (1,000 unit) tablet (Vitamin D3) ibuprofen 800 mg tablet 800 mg PO TID PRN pain #30 tabs 12/11/20 11/29/24 Rx ibandronate 150 mg tablet (Boniva) 150 mg PO MONTHLY 12/19/20 11/29/24 History clopidogrel 75 mg tablet (Plavix) 75 mg PO DAILY 10/22/21 12/01/24 History ascorbate calcium (vitamin C) See Rx Instructions PO QAM 10/31/22 12/01/24 History potassium chloride 20 mEq 40 meq PO DAILY 02/10/24 12/01/24 History tablet,extended release levothyroxine 88 mcg tablet 88 mcg PO DAILY #90 tabs 05/26/24 12/01/24 Rx olmesartan 20 See Rx Instructions .Route 10/10/24 12/01/24 Rx mg-hydrochlorothiazide 12.5 mg .COMPLEX #90 tabs tablet atorvastatin 80 mg tablet See Rx Instructions .Route 10/31/24 12/01/24 Rx .COMPLEX #90 tabs fluticasone propionate 50 2 spray intranasal DAILY PRN 10/31/24 11/29/24 Rx mcg/actuation nasal allergy symptoms #16 grams spray,suspension (Flonase Allergy Relief) ferrous sulfate 325 mg (65 mg 325 mg PO DAILY 11/23/24 11/29/24 History iron) tablet (FeroSul) Patient hx anesthesia problems: none Family hx anesthesia problems: none Results Review: All pre-operative results and documents have been reviewed as part of the pre-operative evaluation. [facility] Past Medical History Medical History Chronic jaw pain Amaurosis fugax Adult idiopathic generalized osteoporosis Seborrheic keratosis BMI 32.0-32.9,adult Actinic keratosis Carotid bruit COVID-19 vaccine series completed Myositis Strain of left biceps muscle Biceps tendonitis History of vaginal delivery X2 Vaccine counseling Osteoarthritis Obesity (BMI 30.0-34.9) Dyslipidemia Bladder prolapse Seborrheic keratoses Adenomatous colon polyp CVA (cerebral vascular accident) Hypothyroidism Hypercholesterolemia HTN (hypertension) Surgical History Surgical History History of tubal ligation History of lumpectomy of right breast Benign Family History Family History Father Acute myocardial infarction Mother , Related to C. difficile No problems noted. Social History Social History Smoking packs per day: 0.5 Smoking cigarettes per day: 10.0 Years smoked: 40 Smoking pack-years: 20.00 Smoking status: Former smoker Tobacco type: cigarettes Second hand tobacco smoke exposure: Yes Smoking end date: 01/05/11 Alcohol intake: never Substance use: never Substance use type: does not use Lack of Transportation: No Lack of Food: Never True Current Housing: I Have Housing Concerned About Future Housing: No Difficulty Paying Gas/Electric Bills: No Difficulty Paying for Meds: No Currently Unemployed: No Education: High School Diploma/GED Difficulty w/ Childcare or Family Care: No Living arrangements: with family Occupation/Education: retired Gender identity (if verbalized by the patient): Female Sexual Orientation (if Verbalized by the Patient): Straight or Heterosexual Spiritual care concerns: No Anes - Eval Final PreProcedure Day of Procedure 12/01/24 07:54 Patient weight: normal Heart: regular rate and rhythm Lungs: clear to auscultation Airway: Mallampati scale class II Neurological: alert and oriented Last oral intake: >/= 8 hours ASA classification: III Emergent: no Anesthetic plan: proceed Anesthesia type and monitoring: general GIVS and standard monitoring Results Review: All pre-operative results and documents have been reviewed as part of the pre-operative evaluation. Informed Consent: The patient's anesthetic plan and its attendant risks and benefits were discussed with the patient/family/POA. Questions were solicited and answers provided to the satisfaction of the patient/family/POA.
--- NOTE | 2024-12-01 08:14 | PM.HPGS ---
History of Present Illness History of Present Illness Consent: Risks, benefits, and alternatives have been discussed and questions answered. Patient agrees to proceed with procedure. Chief complaint: Benign neoplasm of colon Narrative: Ana Rosa Patiño is a 79 year old female with h/o colon polyp, last colonoscopy 2019 Review of Systems Review of Systems: All systems reviewed & are unremarkable except as noted in HPI and below PMFSH Past Medical History Medical History Chronic jaw pain Amaurosis fugax Adult idiopathic generalized osteoporosis Seborrheic keratosis BMI 32.0-32.9,adult Actinic keratosis Carotid bruit COVID-19 vaccine series completed Myositis Strain of left biceps muscle Biceps tendonitis History of vaginal delivery X2 Vaccine counseling Osteoarthritis Obesity (BMI 30.0-34.9) Dyslipidemia Bladder prolapse Seborrheic keratoses Adenomatous colon polyp CVA (cerebral vascular accident) Hypothyroidism Hypercholesterolemia HTN (hypertension) Surgical History Surgical History History of tubal ligation History of lumpectomy of right breast Benign Family History Family History Father Acute myocardial infarction Mother , Related to C. difficile No problems noted. Social History Social History Smoking packs per day: 0.5 Smoking cigarettes per day: 10.0 Years smoked: 40 Smoking pack-years: 20.00 Smoking status: Former smoker Tobacco type: cigarettes Second hand tobacco smoke exposure: Yes Smoking end date: 01/05/11 Alcohol intake: never Substance use: never Substance use type: does not use Lack of Transportation: No Lack of Food: Never True Current Housing: I Have Housing Concerned About Future Housing: No Difficulty Paying Gas/Electric Bills: No Difficulty Paying for Meds: No Currently Unemployed: No Education: High School Diploma/GED Difficulty w/ Childcare or Family Care: No Living arrangements: with family Occupation/Education: retired Gender identity (if verbalized by the patient): Female Sexual Orientation (if Verbalized by the Patient): Straight or Heterosexual Spiritual care concerns: No Meds Home Medications and Allergies Home Medications ?Medication ?Instructions ?Recorded ?Confirmed ?Type aspirin 81 mg tablet,delayed 81 mg PO DAILY 08/01/19 12/01/24 History release (Aspir-) calcium ER 600 mg (as carb,cit)-D3 2 tablet PO DAILY 08/01/19 12/01/24 History 12.5 mcg (500 unit) tablet, ext.rel (Citracal-D3 Slow Release) cholecalciferol (vitamin D3) 25 2,000 unit PO DAILY 08/01/19 12/01/24 History mcg (1,000 unit) tablet (Vitamin D3) ibuprofen 800 mg tablet 800 mg PO TID PRN pain #30 tabs 12/11/20 11/29/24 Rx ibandronate 150 mg tablet (Boniva) 150 mg PO MONTHLY 12/19/20 11/29/24 History clopidogrel 75 mg tablet (Plavix) 75 mg PO DAILY 10/22/21 12/01/24 History ascorbate calcium (vitamin C) See Rx Instructions PO QAM 10/31/22 12/01/24 History potassium chloride 20 mEq 40 meq PO DAILY 02/10/24 12/01/24 History tablet,extended release levothyroxine 88 mcg tablet 88 mcg PO DAILY #90 tabs 05/26/24 12/01/24 Rx olmesartan 20 See Rx Instructions .Route 10/10/24 12/01/24 Rx mg-hydrochlorothiazide 12.5 mg .COMPLEX #90 tabs tablet atorvastatin 80 mg tablet See Rx Instructions .Route 10/31/24 12/01/24 Rx .COMPLEX #90 tabs fluticasone propionate 50 2 spray intranasal DAILY PRN 10/31/24 11/29/24 Rx mcg/actuation nasal allergy symptoms #16 grams spray,suspension (Flonase Allergy Relief) ferrous sulfate 325 mg (65 mg 325 mg PO DAILY 11/23/24 11/29/24 History iron) tablet (FeroSul) Allergies Allergy/AdvReac Type Severity Reaction Status Date / Time meperidine Allergy Unknown SEVERE Verified 12/01/24 07:11 HYPOTENSION terfenadine Allergy Unknown Hives Verified 12/01/24 07:11 Vital Signs Vital Signs - 24 hr 12/01/24 07:13 Temperature 97 F L Pulse Rate 74 Respiratory Rate 15 Blood Pressure 96/56 L Pulse Oximetry 100 Oxygen Delivery Room Air Exam Const: General: comfortable and no acute distress HENMT: Face/Nose/Sinus: Normal nares present Eyes: General: appearance normal, both eyes and all related structures Neck: Neck: no JVD Resp: Auscultation: clear to auscultation bilaterally Cardio: Rate: regular rate Rhythm: regular rhythm GI: Inspection: non-distended GI Palp: Yes Soft to palpation Skin: General skin exam: normal color Neuro: Speech: normal speech Extrem: General: normal to inspection Psych: Mental Status: mental status grossly normal Assessment and Plan Assessment and plan (1) Adenomatous colon polyp: Qualifiers: Colon location: unspecified part of colon Qualified Code(s): D12.6 - Benign neoplasm of colon, unspecified Code(s): D12.6 - Benign neoplasm of colon, unspecified Status: Acute Assessment and Plan: colonoscopy
[2024-12-01 08:32] VITALS: BP 85/48; PULSE 77; RESP 28; O2SAT 98
[2024-12-01 08:42] VITALS: BP 95/59; PULSE 85; RESP 20; O2SAT 99
[2024-12-01 08:52] VITALS: BP 106/79; PULSE 80; RESP 18; O2SAT 96
== END 2024-12-01 09:13 | disposition home or self-care (01) ==
PROVIDERS: PCP Nurse Practitioner Family; Referring Provider Nurse Practitioner Family; Visit Provider Internal Medicine Gastroenterology
PROC: 0DJD8ZZ Inspection of Lower Intestinal Tract, Via Natural or Artificial Opening Endoscopic (ICD-10-PCS; CPT 45378; principal; 2024-12-01 08:30)
DX: Z12.11 Encounter for screening for malignant neoplasm of colon (principal); E03.9 Hypothyroidism, unspecified; E78.00 Pure hypercholesterolemia, unspecified; I10 Essential (primary) hypertension; M81.8 Other osteoporosis without current pathological fracture; G89.29 Other chronic pain; R68.84 Jaw pain; L82.1 Other seborrheic keratosis; M19.90 Unspecified osteoarthritis, unspecified site; Z79.82 Long term (current) use of aspirin; Z79.1 Long term (current) use of non-steroidal anti-inflammatories (NSAID); Z79.83 Long term (current) use of bisphosphonates; Z79.02 Long term (current) use of antithrombotics/antiplatelets; Z98.890 Other specified postprocedural states; Z98.51 Tubal ligation status; Z87.891 Personal history of nicotine dependence; Z86.0100 Personal history of colon polyps, unspecified; Z87.448 Personal history of other diseases of urinary system; Z86.79 Personal history of other diseases of the circulatory system; Z82.49 Family history of ischemic heart disease and other diseases of the circulatory system
CPT/HCPCS: G0105; J1100; J1200; J2003; J2405; J2704; J7120

== ENCOUNTER 2024-12-05 13:15 | Outpatient (CLI) | payer MEDICARE, SELFPAY ==
--- NOTE | ~2024-12-05 | DEXA_ITS ---
Bone Density Report Name: JOSE WATERS Age: 79 Sex: Female Ethnicity: White Date of : 1945 Indication: monitoring treatment; height loss; Referring Provider: LAQUITA ROBERT Study: Bone densitometry was performed. Exam Date: December 05, 2024 Accession number: [id number] Bone Density: Region BMD T-score Z-score Classification AP Spine(L1, L2, L3) 1.597 5.3 7.7 Normal Femoral Neck (Left) 0.808 -0.4 1.8 Normal Total Hip (Left) 0.934 -0.1 1.9 Normal Femoral Neck (Right) 0.645 -1.8 0.4 Osteopenia Total Hip (Right) 0.844 -0.8 1.1 Normal Total Hip Mean 0.889 -0.5 1.5 Normal World Health Organization criteria for BMD impression classify patients as: Normal (T-score at or above -1.0), Osteopenia (T-score between -1.0 and -2.5), or Osteoporosis (T-score at or below -2.5). 10-year Fracture Risk: FRAX not reported because: Treated for osteoporosis Previous Exams: Region Exam Age BMD T-score BMD Change BMD Change Date g/cm2 vs Baseline vs Previous AP Spine (L1-L3) 12/05/2024 79 1.597 5.3 0.030 (1.9%)* -0.073 (-4.4%) 09/28/2018 73 1.670 5.9 0.103 (6.6%)* 0.103 (6.6%)* 09/16/2016 71 1.567 5.0 Total Hip(Left) 12/05/2024 79 0.934 -0.1 0.025 (2.8%) 0.002 (0.2%) 11/14/2022 77 0.932 -0.1 0.023 (2.6%) 0.006 (0.7%)# 10/12/2020 75 0.926 -0.1 0.017 (1.9%)# 0.005 (0.5%)# 09/28/2018 73 0.921 -0.2 0.012 (1.3%) 0.012 (1.3%) 09/16/2016 71 0.909 -0.3 Total Hip(Right) 12/05/2024 79 0.844 -0.8 -0.004 (-0.5%) 0.006 (0.8%) 11/14/2022 77 0.837 -0.9 -0.011 (-1.3%) -0.030 (-3.4%) 10/12/2020 75 0.867 -0.6 0.019 (2.2%)# 0.016 (1.8%)# 09/28/2018 73 0.852 -0.7 0.004 (0.4%) 0.004 (0.4%) 09/16/2016 71 0.848 -0.8 *Denotes significance at 95% confidence level, LSC for AP Spine = 0.022 g/cm2, LSC for Total Hip = 0.027 g/cm2 # Denotes dissimilar scan types or analysis methods Clinical Information Provided by Patient: Is being treated for osteoporosis Has used the following medications: Boniva (i.e. ibandronate), Vitamin D, Calcium Patient maximum height was 63 Menopause Age: 54 No regular weight bearing exercise Drinks caffeinated beverages Onset of menses at age 17 Number of children 2 Impression: The patient has low bone mass, based on the Right Femoral Neck T-score. The BMD for the AP Spine (L1-L3) decreased, changing by -4.4% since the last DXA exam. Discussion: SIGNIFICANT BONE LOSS OBSERVED. Adherence to therapy (including calcium and vitamin D intake) should be assessed. If compliance is not a factor, review management and exclusion of secondary causes of bone loss. It is important to ask patients whether they are taking their medications and to encourage continued and appropriate compliance with their osteoporosis therapies to reduce fracture risk. It is also important to review their risk factors and encourage appropriate calcium and vitamin D intakes, exercise, fall prevention and other lifestyle measures. Follow-Up: Consider a repeat BMD and Vertebral Fracture Assessment (VFA) exam in 2 years or sooner if medically necessary, to reassess this patient's status. Reported by: JESSICA on 12/05/2024 1:55:00 PM. Reviewed, dictated and finalized at location A. [facility]
--- OUTSIDE RECORDS SUMMARY | 2024-12-05 14:29 | XMS_ITS | Continuity of Care Document ---
Author Organization [facility] Address [address] [place] [address] Phone Care Team Providers Care Audio Visual Technician Name Role Phone Unavailable Unavailable Unavailable Procedures Procedure Date Postop followup visit Postop followup visit Postop followup visit Knee arthscpy mnsctmy medial or lat Arthro, loose body + chondro Office/outpatient visit,[facility] 2007 X-ray exam of knee, 1 or2 views 008 X-ray exam of both knees, standing Advance Directives Directive Yes / No Effective Date File Name No Information Encounters Encounter Description Practice Location Reason(s) For Visit Diagnoses Date Provider Providers Copied on Encounter [facility], [address], [id number], tel:[phone] [facility] No Information 8 No Information Referring Provider: Robby Parra, [address] [place] [address], [id number]. tel:[phone] [facility], [address], [id number], [place] tel:[phone] [facility] No Information 8 No Information Referring Provider: Robby Parra, [address] [place] [address], [id number]. tel:[phone] [facility], [address], [id number], tel:[phone] [facility] No Information 8 No Information Referring Provider: Robby Parra, [address] [place] [address], [id number]. tel:[phone] [facility], [address], [id number], [place] tel:[phone] [facility] No Information 8 No Information Referring Provider: Robby Parra, [address] [place] [address], [id number]. tel:[phone] Office/outpat ient visit,[facility], [address], [id number], [place] tel:[phone] [facility] No Information 8 No Information Referring Provider: Ramana Bingham, [address] [place] [address], [id number] . tel:[phone] Family History Family Member Type Diagnosis Age At Onset No Information Payers Payer name Insurance type Covered constitution party ID Authorantonietaa lingbharat(s) Eliceo Mccollum [id number] Social History Type Description Quantity Date Captured [...]
--- OUTSIDE RECORDS SUMMARY | 2024-12-05 14:29 | XMS_ITS | Encounter Summary ---
Author Organization [facility] Address [address] [facility] [place] [address] Care Team Providers Care Commercial Real Estate Lender Name Role Phone True Delacruz MD Primary Care Provider [phone] Reason for Visit * Reason Onset Date Comments MEDICATION REFILL 06/28/2022 Encounter Details Date Type Department Care Team (Late st Contact Info) Description 06/28/2022 Refill [facility] [address] [place] [address] Bobby Rajan MD [address] [address] MEDICATION REFILL Social History Tobacco [...] Sex Assigned at Female 10/08/2020 6:27 PM OPERATIONAL INTELLIGENCE OFFICER Gender Identity Female 10/08/2020 6:27 PM OPERATIONAL INTELLIGENCE OFFICER Sexual Orientation Choose not to disclose 2020 6:27 PM OPERATIONAL INTELLIGENCE OFFICER documented as of this encounter Functional Status [...] on filedocumented in this encounter Care Teams Commercial Real Estate Lender Relationship Specialty Start Date End Date True Delacruz MD [address] [place] [address] PCP - General 01/12/20 documented as of this encounter
--- OUTSIDE RECORDS SUMMARY | 2024-12-05 14:29 | XMS_ITS | Continuity of Care Document ---
Author Organization [facility] Address [address] [place] [address] Phone Care Team Providers Care Missile Control Pilot Name Role Phone Gerald Gonzalez MD Unavailable Unavailable Advance Directives Directive Yes / No Effective Date File Name No Information Encounters Encounter Description Practice Location Reason(s) For Visit Diagnoses Date Provider Providers Copied on Encounter [facility], [address], [place], [place], [id number], [place] tel:[phone] [facility] No Information Carlos Duarte. [address] [place] [address], [id number], [place]. tel:[phone] Family History Family Member Type Diagnosis Age At Onset No Information Payers Payer name Insurance type Covered green party ID Authoriza tion(s) MEDICARE [id number] AARP MDCR SUPPLEMENT ONLY CI [id number] Social History Type Description Quantity Date Captured [...]
--- OUTSIDE RECORDS SUMMARY | 2024-12-05 14:29 | XMS_ITS | Clinical Summary ---
Author Organization [facility] Address [address] [place] [place] [address] Care Team Providers Care Road Machine Operator Name Role Phone True Delacruz MD Primary Care Provider [phone] [facility],non-owned Affiliates and Associated Physician Practices is amultiple site organization consisting of ambulatory clinics and hospital sitesin [place], [place], [place] and [place]. This disclosure is being madepursuant to the Care Everywhere program and may not contain all information available regarding this patient. Last updated 18.[facility] Allergies Active Allergy Reactions Criticality Noted Date [...] fluticasone propionate (FLONASE) 50 MCG/ACT nasal spray [place] 1 spray into each nostril as needed [...] Sex Assigned at Female 10/08/2020 6:27 PM OBSTETRICAL ANESTHESIOLOGIST Gender Identity Female 10/08/2020 6:27 PM OBSTETRICAL ANESTHESIOLOGIST Sexual Orientation Choose not to disclose 2020 6:27 PM OBSTETRICAL ANESTHESIOLOGIST Last Filed Vital Signs Vital Sign Reading [...] this topic Medical Devices Explanted Type Area Disbursement Clerk Device Identifier Shelf Expiration Date Model / Serial / Lot Stent Xact 7-9mm 40mm Crtd Slf Xpd Cls - [id number] Explanted:Qty : 1 on 01/06/2022 at [facility] Stent - Vascular Right: [employer] 02/04/2023 [id number] / [id number] / [id number] Stent Xact 7-9mm 30mm Crtd Slf Xpd Cls - [id number] Explanted:Qty : 1 on 01/06/2022 at [facility] Stent - Vascular Right: [employer] 04/06/2023 [id number] / [id number] / [id number] Advance Directives * Full Code (Latest Code Status on File) Date Activated Date Inactivated Comments 01/06/2022 4:59 PM 01/07/2022 1:[address] Machine Operator Relationship Specialty Start Date End Date True Delacruz MD [address] [place] [address] PCP - General 01/12/20
== END 2024-12-05 13:16 | disposition home or self-care (01) ==
LOC: ANHIMG 13:16
PROVIDERS: PCP Nurse Practitioner Family; Visit Provider Obstetrics & Gynecology Gynecology
DX: Z78.0 Asymptomatic menopausal state (principal); M85.851 Other specified disorders of bone density and structure, right thigh
CPT/HCPCS: 77080

== ENCOUNTER 2025-01-09 10:24 | Outpatient (CLI) | payer MEDICARE, SELFPAY ==
--- NOTE | ~2025-01-09 | MM_ITS ---
EXAMINATION: MM screening leonila BI w anh HISTORY: Screening TECHNIQUE: Craniocaudal and mediolateral oblique 3-D tomosynthesis images were obtained and synthetic 2-D images were generated. CAD analysis was submitted and interpreted. COMPARISON: Comparison to multiple prior studies sequentially, with oldest reviewed study dated 09/28. BREAST PARENCHYMAL COMPOSITION: Not dense: There are scattered areas of fibroglandular density. FINDINGS: There is no evidence of suspicious mass, calcification, or architectural distortion to sugg est malignancy in either breast. There has been no suspicious interval change. IMPRESSION: 1. No mammographic evidence of malignancy. 2. Recommend routine screening mammography in one year. BI-RADS Category 1: Negative Reviewed, dictated and finalized at location A.
== END 2025-01-09 10:25 | disposition home or self-care (01) ==
PROVIDERS: PCP Nurse Practitioner Family; Visit Provider Obstetrics & Gynecology Gynecology
DX: Z12.31 Encounter for screening mammogram for malignant neoplasm of breast (principal)
CPT/HCPCS: 77063; 77067

== ENCOUNTER 2025-06-01 07:09 | Outpatient (CLI) | payer MEDICARE, SELFPAY ==
--- OUTSIDE RECORDS SUMMARY | 2008-03-23 06:30 | XMS_ITS | Continuity of Care Document ---
Author Organization [facility] Address [address] [place] [address] Phone Care Team Providers Care Training And Development Manager Name Role Phone Unavailable Unavailable Unavailable Procedures Procedure Date Postop followup visit Postop followup visit Postop followup visit Knee arthscpy mnsctmy medial or lat Arthro, loose body + chondro Office/outpatient visit,[facility] 2007 X-ray exam of knee, 1 or2 views 008 X-ray exam of both knees, standing Advance Directives Directive Yes / No Effective Date File Name No Information Encounters Encounter Description Practice Location Reason(s) For Visit Diagnoses Date Provider Providers Copied on Encounter [facility], [address], [id number], tel:[phone] [facility] No Information 8 No Information Referring Provider: Robby Parra, [address] [place] [address], [id number]. tel:[phone] [facility], [address], [id number], [place] tel:[phone] [employer] [facility] No Information 8 No Information Referring Provider: Robby Parra, [address] [place] [address], [id number]. tel:[phone] [facility], [address], [id number], tel:[phone] [facility] No Information 8 No Information Referring Provider: Robby Parra, [address] [place] [address], [id number]. tel:[phone] [facility], [address], [id number], [place] tel:[phone] [facility] No Information 8 No Information Referring Provider: Robby Parra, [address] [place] [address], [id number]. tel:[phone] Office/outpat ient visit,[facility], [address], [id number], [place] tel:[phone] [facility] No Information 8 No Information Referring Provider: Ramana Bingham, [address] [place] [address], [id number] . tel:[phone] Family History Family Member Type Diagnosis Age At Onset No Information Payers Payer name Insurance type Covered constitution party ID Authorantonietaa lingbharat(s) Eliceo Mccollum [id number] Social History Type Description Quantity Date Captured Comments Sex Female Smoking Status No Information Chief Complaint And Reason For Visit No Information Reason For Referral Reason For Referral No Information History Of Present Illness Encounter Date Complaint History Of Prese nt Illness No Information Functional Status Date Functional Assessmen t No Information Instructions Date Instruction Additional Infor mation No Information Assessments Type Assessment Date No Information Patient Care Teams Name Effective Dates (start - stop) Status Members No Information
--- OUTSIDE RECORDS SUMMARY | 2024-09-12 12:26 | XMS_ITS | Continuity of Care Document ---
Author Organization [facility] Address [address] [place] [address] Phone Care Team Providers Care Hydraulic Auto Jack Mechanic Name Role Phone Gerald Gonzalez MD Unavailable Unavailable Advance Directives Directive Yes / No Effective Date File Name No Information Encounters Encounter Description Practice Location Reason(s) For Visit Diagnoses Date Provider Providers Copied on Encounter [employer], [address], [place], [place], [id number], [place] tel:[phone] [facility] No Information Carlos Duarte. [address] [place] [address], [id number], [place]. tel:[phone] Family History Family Member Type Diagnosis Age At Onset No Information Payers Payer name Insurance type Covered republican ID Authoriza tion(s) MEDICARE [id number] AARP MDCR SUPPLEMENT ONLY CI [id number] Social History Type Description Quantity Date Captured Comments Sex Female Smoking Status No Information Sexual Orientation Straight or heterosexual Gender Identity Female Chief Complaint And Reason For Visit No [...]
--- OUTSIDE RECORDS SUMMARY | 2025-06-01 07:13 | XMS_ITS | Data Portability ---
Author Organization [place] - [facility] [employer], Main Office Address [address] [place] [address] Assessment Encounter Date Assessment Date Assessment LastModified by Organization Details LastModified Time 06/16/2024 06/16/2024 Patient has moderate primary osteoarthritis [...] difficulties or questions. Not available 06/23/2024 09:59:43 01/10/2025 01/10/2025 The patient has moderately severe primary osteoarthritis left knee joint noted on today's x-ray exam. We talked about treatment options in detail today she has done well with gel shots previously today she comes in for Orthovisc injection 1. Under sterile conditions I injected the patient's left knee joint in the office with Orthovisc injection. She tolerated the procedure well. I will see her back next week for the 2nd injection left knee. She voiced understanding and agrees with the above plan she will call for any further problems difficulties or questions. Not available 01/10/2025 15:05:31 01/17/2025 01/17/2025 The patient has moderately severe primary osteoarthritis left knee joint as described. Under sterile conditions I injected the patient's left knee joint in the office with Orthovisc injection number 2. I will see her back next week for the 3rd injection left knee. She voiced understanding agrees above plan she will call for any further problems difficulties or questions. Not available 01/17/2025 14:41:46 01/24/2025 01/24/2025 The patient has moderately severe primary osteoarthritis left knee joint as described. Under sterile conditions I injected the patient's left knee joint in the office with Orthovisc injection number 3. Patient tolerated procedure well. I will see her back as needed she is doing well with the injections. We could do this again in 6 months if necessary versus cortisone in between we will see how things go she will call us when she needs anything else. She voiced understanding agreed with the above plan. Not available 01/24/2025 15:12:01 Plan of Treatment Reminders Order Date Submit Date Provider Last Modified By Organization Details Last Modified Time Details Appointments None recorded. Lab None recorded. Referral None recorded. Procedures knee aspiration /injection (PROC) 2024 025 [email or web address] In-Office Order, Internal Use Only DO Not Attach Compendium DO Not Attach Compendium, Do Not Delete/merge, [id number] 14:44:17 knee aspiration /injection (PROC) 2024 025 [email or web address] In-Office Order, Internal Use Only DO Not Attach Compendium DO Not Attach Compendium, Do Not Delete/merge, [id number] 14:29:25 knee aspiration /injection (PROC) 2024 025 [email or web address] In-Office Order, Internal Use Only DO Not Attach Compendium DO Not Attach Compendium, Do Not Delete/merge, [id number] 14:47:47 knee aspiration /injection (PROC) 2023 024 [email or web address] In-Office Order, Internal Use Only DO Not Attach Compendium DO Not Attach Compendium, Do Not Delete/merge, [id number] 4 09:35:28 knee aspiration /injection (PROC) 2023 024 [email or web address] In-Office Order, Internal Use Only DO Not Attach Compendium DO Not Attach Compendium, Do Not Delete/merge, [id number] 09:36:24 Surgeries None recorded. Imaging XR, knee 2024 025 [email or web address] [facility] [place], [address], [place], [address], 5 16:17:06 Medication Orders ORTHOVISC 30 mg/2 mL intra-gisell cular syringe 2024 025 [email or web address] [id number], [address], [place], [place], [id number], 5 15:51:38 ORTHOVISC 30 mg/2 mL intra-gisell cular syringe 2024 025 [email or web address] [id number], [address], [place], [place], [id number], 5 17:10:37 ORTHOVISC 30 mg/2 mL intra-gisell cular syringe 2024 025 [email or web address] [id number], [address], [place], [place], [id number], 5 16:17:06 ORTHOVISC 30 mg/2 mL intra-gisell cular syringe 2023 024 [email or web address] [facility], [address], [place], [place], [id number], 5 14:45:53 ORTHOVISC 30 mg/2 mL intra-gisell cular syringe 2023 024 [email or web address] [facility], [address], [place] [id number], 5 14:45:53 Patient TargetsNo targets recorded. Patient InstructionsNo instructions recorded. Reason for Referral None Reported. Results Created Date Observation Date Name Description Value Unit Range Abnormal Flag Note LastModifiedBy Organization Detail LastModifiedTime 01/11/20 25 XR, knee No observ ation record ed. [email or web address] [facility] [place] [address], [place], [address], 01/10/2025 15:06:43 Result Notes None recorded. Problems Name Problem SNOMED Code Status Onset Date Resolution Date Notes Provider Name and Address Organization Details Recorded Time Localized, primary osteoarthr itis of the hand 880653535 Active Not Available [facility] 3 20:54:12 Osteoarthr itis of left knee joint 6829424578532 09 Active 2021 Not Available [facility] 3 20:54:12 Tendinitis of left rotator cuff 6083918999749 9101 Active 2022 Not Available [facility] 3 20:54:12 Pain in left arm 610488880 Active 2022 Not Available [facility] 3 20:54:12 Pain of left knee joint 4200878516945 07 Active 2022 Not Available [facility] 3 20:54:12 Old anterior cruciate ligament disruption 269666653 Active 2022 JOHN Levy [address] [facility], [facility] [address], [place], [address] , [facility] [employer] [facility] 3 15:20:41 Old disruption of ligament of knee 67207190 Active 2023 ЕКАТЕРИНА Mendieta null, Sesamea - S [employer] [facility] 4 10:18:49 Pain of left hip joint 8281070117905 00 Active 2023 Tisha Barajas CMA null, [place] - [facility] 4 10:48:30 Osteoarthr itis of left hip joint 1557867180300 08 Active 2023 JOHN Levy [address] [facility], [facility] [address], [place], [address] , [employer] 4 11:35:39 Problem Notes None recorded. Procedures Surgical History Date Name Laterality Status Provider Name and Address Organization Details Recorded Time Angioplasty completed BLADIMIR RaoA [place] [employer] 07/16/2023 14:35:24 Imaging Results None recorded. Procedure Notes None recorded. Medical Equipment None Reported. Allergies Allergen ID Allergen Name Allergen Category Reaction Reaction Severity Criticality Documentation Date Start Date Code Code System Note Provider Name and Address Organization Details Recorded Time 70196 Seldane medicatio n hives Not available Not available 11/05/2022 87993 0 RxNorm Not Available [facility] 3 20:54:50 09987 Demerol medicatio n Not available Not available Not available 11/05/2022 49825 1 RxNorm low blood press ure BERONICA Rao, [place] - [employer] 3 14:32:36 07381 latex environme nt,medica tion itching Not available Not available 07/16/2023 06778 91 RxNorm BERONICA Rao, [place] - [employer] 3 14:32:59 Medications Name Sig Start Date Stop Date Status Note LastModified by Organization Details LastModified Time atorvastati n 40 mg tablet TAKE 1 TABLET BY MOUTH EVERY DAY 06/03 completed Not Available Not Available Not Available atorvastati n 80 mg tablet TAKE 1 TABLET BY MOUTH ONCE DAILY AT BEDTIME active Not Available Not Available No t Available prednisone 10 mg tablet 01/10 completed Not Available Not Available Not Available atorvastati n 20 mg tablet TAKE 1 TABLET BY MOUTH AT BEDTIME 06/03 completed Not Available Not Available Not Available azithromyci n 250 mg tablet 01/10 completed Not Available Not Available Not Available ibuprofen 800 mg tablet Take 1 tablet 3 times a day by oral route as needed. 01/10 completed Not Available Not Available Not Available benzonatate 200 mg capsule TAKE 1 CAPSULE BY MOUTH THREE TIMES DAILY NEEDED FOR COUGH 01/10 completed Not Available Not Available Not Available valacyclovi r 1 gram tablet TAKE 1 TABLET BY MOUTH EVERY 8 HOURS FOR 7 DAYS 01/10 completed Not Available Not Available Not Available bupivacaine HCl 0.5 % (5 mg/mL) injection solution Take 20 mg by injection route. 01/10 completed Not Available Not Available Not Available prednisone 20 mg tablet TAKE 2 TABLETS BY MOUTH DAILY 01/10 completed Not Available Not Available Not Available metronidazo le 500 mg tablet TAKE 1 TABLET BY MOUTH TWICE DAILY 01/10 completed Not Available Not Available Not Available clopidogrel 75 mg tablet TAKE 1 [...] tablet TAKE 1 TABLET BY MOUTH DAILY 01/10 completed Not Available Not Available Not Available levothyroxi ne 88 mcg tablet TAKE 1 TABLET BY MOUTH DAILY active Not Available Not Available No t Available Kenalog 10 mg/mL suspension for injection Take 20 mg by injection route. 01/[address] [facility]: 0003- 0494- 20 Not Available Not Available Not Available diazepam 2 mg tablet TAKE 1 TABLET BY MOUTH 1 HOUR BEFORE TEST 07/16 completed Not Available Not Available Not Available benzonatate 100 mg capsule TAKE 1 CAPSULE BY MOUTH EVERY 8 HOURS NEEDED 01/10 completed Not Available Not Available Not Available cephalexin 500 mg capsule TAKE 1 CAPSULE BY MOUTH TWICE DAILY FOR 5 DAYS 07/16 completed Not Available Not Available Not Available oseltamivir 75 mg capsule TAKE 1 CAPSULE BY MOUTH EVERY 12 HOURS FOR 5 DAYS 01/10 completed Not Available Not Available Not Available ibuprofen 600 mg tablet PRN 01/10 completed Not Available Not Available Not Available methylpredn isolone 4 mg tablets in a dose pack FOLLOW PACKAGE DIRECTION S 01/10 completed Not Available Not Available Not Available albuterol sulfate HFA 90 mcg/actuati on aerosol inhaler INHALE 2 PUFFS BY MOUTH FOUR TIMES DAILY 01/10 completed Not Available Not Available Not Available fluticasone propionate 50 mcg/actuati on nasal spray,suspe nsion SHAKE LIQUID AND USE 2 SPRAYS IN EACH NOSTRIL DAILY NEEDED FOR ALLERGY SYMPTOMS active Not Available Not Available No t Available naproxen 500 mg tablet TAKE 1 TABLET BY MOUTH TWICE DAILY WITH FOOD 01/10 completed Not Available Not Available Not Available levothyroxi ne 112 mcg tablet TAKE [...] mL every week by intra-art icular route. 2024 active Not Available Not Available Not Avai lable ibandronate 150 mg tablet TAKE 1 TABLET BY MOUTH MONTHLY. 01/10 completed Not Available Not Available Not Available losartan 100 mg-hydrochl orothiazide 12.5 mg tablet 12/20 completed Not Available Not Available Not Available lidocaine (PF) 10 mg/mL (1 %) injection solution In office injection administe red by the provider 06/[address] [facility]: [phone]- [phone]- 17 Not Available Not Available Not Available ropivacaine (PF) 5 mg/mL (0.5 %) injection solution Take 20 mg by injection route. 07/16 completed Not Available Not Available Not Available potassium chloride ER 20 mEq tablet,exte nded release TAKE 1 TABLETS BY MOUTH TWICE DAILY active Not Available Not Available No t Available Fluzone High-Dose 3705-7750 (PF) 180 mcg/0.5 mL intramuscul ar syringe ADM 0.5ML IM UTD 12/20 completed Not Available Not Available Not Available Vitals Date Recorded Body height Provider Name an d Address Organization Details Last Updated DateTime 01/10/2025 154.94 cm Linnea Perry [facility] [employer] 01/10/2025 14:30:09 Date Recorded Body height Body mass index (BMI) Body weight Pain severity - 0-10 verbal numeric rating [Score] - Reported Provider Name and Address Organization Details Last Updated DateTime 01/17/2025 154.94 cm 28.3 kg/m2 60515.86 g 0 [facility] [employer] [facility] 01/17/2025 14:27:48 Date Recorded Body height Provider Name an d Address Organization Details Last Updated DateTime 01/24/2025 154.94 cm Linnea Perry [facility] [employer] [facility] 01/24/2025 14:41:27 Date Recorded Body height Body mass index (BMI) Body weight Provider Name and Address Organization Details Last Updated DateTime 06/16/2024 154.94 cm 28.7 kg/m2 07558.04 g Elisabeth Kim [facility] [employer] [facility] 06/16/2024 09:35:02 Date Recorded Body height Body mass index (BMI) Body weight Provider Name and Address Organization Details Last Updated DateTime 06/23/2024 154.94 cm 28.7 kg/m2 21440.04 g Elisabeth Julio, [facility] [employer] [facility] 06/23/2024 09:33:43 Social History None recorded. Functional Status Question Answer Note LastModified by [employer] Details LastModified Time What is your level of alcohol consumption? None [id number] Information not available 11/05/2022 Mental Status None recorded. Family History Relationship Description Onset Age of this Age Resolved Age Notes LastModified by Organization Details LastModified Time Father Heart disease [id number] [id number] Not available 11/05/2022 20:53:54 Unspecified Relation Family history of stroke [id number] Not available 11/05/2022 20:53:54 Unspecified Relation Essential hypertension [id number].884 [id number] Not available 11/05/2022 20:53:54 Mother History of thyroid disorder [id number] [id number] Not available 11/05/2022 20:53:54 Brother Heart disease [id number] Not available 11/05/2022 20:53:54 Medical History Condition Response ARTHRITIS Y OSTEOPOROSIS Y USE OF BLOOD THINNERS Y HYPERTENSION Y STROKE/TIA Y Gynecological HistoryNo gynecological history recorded. Obstetrics History GPAL:G 0 P 0 0 0 0 Past Encounters Encounter ID Performer Location Encounter Start Date Encounter Closed Date Diagnosis/Indication Diagnosis SNOMED-CT Code Diagnosis ICD10 Code Diagnosis IMO Codes Diagnosis Note [id number] JOHN Levy [facility] [place] [address] [place] [address] 01/14/2021 00:00:00 01/14/2021 14:30:23 [id number] JOHN Levy [facility] [place] [address] [place] [address] 02/11/2021 00:00:00 02/11/2021 11:36:53 [id number] JOHN Levy [facility] [place] [address] [place] [address] 04/15/2021 00:00:00 04/15/2021 10:00:02 [id number] Yusef Mack MD [facility] [place] [address] [place] [address] 06/03/2022 00:00:00 06/03/2022 15:45:37 [id number] Yusef Mack MD [facility] [place] [address] [place] [address] 07/15/2022 00:00:00 07/15/2022 15:01:25 [id number] uYsef Mack MD [facility] [place] [address] [place] [address] 09/15/2022 00:00:00 09/15/2022 11:25:21 [id number] José Meyer MD [facility] [place] [address] [place] [address] 07/16/2023 14:15:17 07/16/2023 15:05:59 Osteoarthritis of left knee joint 3541039648 83638 M17.12 Pain of le ft knee joint 9373145368 42924 M25.562 Old anteri or cruciate ligament disruption 308176015 M23.52 [id number] José Meyer MD [facility] [place] [address] [place] [address] 09/09/2023 10:13:24 09/09/2023 11:45:26 Osteoarthritis of left knee joint 5724850371 61842 M17.12 Old disrup tion of ligament of knee 13335090 M23.52 Pain of le ft knee joint 5646443201 16473 M25.562 Pain of le ft hip joint 6973786845 22774 M25.552 Osteoarthr itis of left hip joint 8035889869 83072 M16.12 [id number] José Meyer MD [facility] [place] [address] [place] [address] 09/17/2023 10:01:44 09/17/2023 10:24:10 Old disruption of ligament of knee 62803624 M23.52 Osteoarthr itis of left knee joint 3673760257 87586 M17.12 Pain of le ft knee joint 4363413286 03909 M25.212 [id number] José Meyer MD [facility] [place] [address] [place] [address] 09/24/2023 09:54:58 09/24/2023 10:19:22 Old disruption of ligament of knee 67744438 M23.52 Osteoarthr itis of left knee joint 1765702685 24180 M17.12 Pain of le ft knee joint 1908657698 38584 M25.980 [id number] Jean Carlos Tsai MD [facility] [place] [address] [place] [address] 06/09/2024 09:37:07 06/09/2024 10:01:40 Osteoarthritis of left knee joint 4601171217 14019 M17.12 Pain of le ft knee joint 3580814624 59814 M25.233 [id number] Jean Carlos Tsai MD [facility] [place] [address] [place] [address] 06/16/2024 09:31:08 06/16/2024 09:52:56 Osteoarthritis of left knee joint 4584805046 99488 M17.12 Pain of le ft knee joint 9155328791 23104 M25.830 [id number] Jean Carlos Tsai MD [facility] [place] [address] [place] [address] 06/23/2024 09:29:35 06/23/2024 10:03:07 Osteoarthritis of left knee joint 9805597012 95725 M17.12 Pain of le ft knee joint 4434732792 71516 M25.126 [id number] Jean Carlos Tsai MD [facility] [place] [address] [place] [address] 01/10/2025 14:27:40 01/10/2025 15:02:00 Osteoarthritis of left knee joint 7138120034 89474 M17.12 Pain of le ft knee joint 6436209387 74856 M25.485 [id number] Jean Carlos Tsai MD [facility] [place] [address] [place] [address] 01/17/2025 14:25:02 01/17/2025 16:30:19 Osteoarthritis of left knee joint 1880164676 67208 M17.12 Pain of le ft knee joint 0485582609 28339 M25.555 [id number] Jean Carlos Tsai MD [facility] [place] [address] [place] [address] 01/24/2025 14:39:02 01/24/2025 15:18:57 Osteoarthritis of left knee joint 7148525820 55209 M17.12 Pain of le ft knee joint 0265856662 91340 M25.562 Health Concerns Section Related Observation LastModified by Organization Detai ls LastModified Time None Recorded Concern Status LastModified by Organization Details LastModified Time None Recorded Advance Directives Directive None Recorded Payers Insurance Date Sequence Insurance Name Policy Number Policy Barth Covered Member ID Barth Member ID Guarantor Name 10/28/2024 [facility] Ana Rosa Patiño AARP AARP Ana Rosa Patiño 02/04/2025 2 AARP (MEDICARE SUPPLEMENT) Ana Rosa Patiño [id number] Ana Rosa Patiño 01/07/2025 1 [place] Ana Rosa Patiño [id number] Ana Rosa Patiño Notes Date Note Type Note Provider Name and Address Organization Details Recorded Time 06/16/2024 text/html the patient returns for Orthovisc injection number 2 left [...] number 2 left knee. JOHN Levy [email or web address], [place], [address], [employer] 06/16/2024 09:43:03 06/23/2024 text/html Patient returns for Orthovisc injection 3. Left knee. She has moderate primary osteoarthritis she has gotten excellent relief so far and did from the other series that she had previously which lasted her almost a year. She states she is walking comfortably has no pain whatsoever and quite pleased with the results so far. JOHN Levy [email or web address], [place], [address], [employer] 06/23/2024 10:01:00 01/10/2025 text/html The patient returns she is here for Orthovisc injection number 1 left knee. We are getting new updated x-rays today she comes in today stating that she has chronic aching pain she comes in every 6 months for gel shots these worked well for her. Recently the last gel shot series 7 months ago has started to wear off. She is getting ready to go out of town on vacation and so she would like to have some relief before she goes on her trip. Denies any new trauma or injury to the knee no effusion or swelling no locking or catching or mechanical symptoms. She has problems with standing or walking for long periods she has generalized aching pain little more medially than laterally. She has moderately severe primary osteoarthritis noted on previous x-rays she comes in today for re-evaluation and new treatment. New past medical history sheet was reviewed and signed on the intake sheet of today's date drug allergies current medications family social history previous surgical history 10 point review of systems was reviewed and discussed in detail today with the patient. JOHN Levy [email or web address], [place], [address], [employer] 01/10/2025 15:08:02 01/17/2025 text/html The patient returns for Orthovisc injection number 2 left knee. She had no problems with the 1st injection. The patient has moderately severe primary osteoarthritis left knee joint. She has done well with gel shots about every 6 months. Is starting to get some relief from the 1st injection already. She comes in today for the 2nd Orthovisc injection. Previous x-rays were reviewed with the patient she has moderate narrowing in the medial compartments fairly equal in nature both knees. Patellofemoral articulation of the left shows some marginal osteophytes around the medial and lateral joint lines with sclerotic changes. JOHN Levy [address], [place], [address], [employer] 01/17/2025 14:42:11 01/24/2025 text/html Patient returns for Orthovisc injection number 3 left knee. The patient has moderate primary osteoarthritis left knee joint she is getting very good relief from the 1st 2 rounds of injections. No new complaints are noted today. Previous x-rays show moderate narrowing of the medial compartment fairly equal in nature both knees patellofemoral articulation left knee shows marginal osteophytes around the medial and lateral joint lines with sclerotic changes. JOHN Levy [address], [place], [address], [employer] 01/24/2025 15:12:25 OBGyn Episode No OBEpisode recorded.
--- OUTSIDE RECORDS SUMMARY | 2025-06-01 07:13 | XMS_ITS | Encounter Summary ---
Author Organization [facility] Address [address] [facility] [place] [address] Care Team Providers Care Power Technician Name Role Phone True Delacruz MD Primary Care Provider Reason for Visit * Reason Onset Date Comments MEDICATION REFILL 06/28/2022 Encounter Details Date Type Department Care Team (Late st Contact Info) Description 06/28/2022 Refill [facility] [address] [place] [address] Bobby Rajan MD [address] [address] MEDICATION REFILL Social History Tobacco [...] more drinks on one occasion? Never 01/06/2022 Comments No Sex and Gender Information Value Date Recorded Sex Assigned at Female 10/08/2020 6:27 PM [employer]ALTH PROFESSIONAL Legal Sex Female 5:35 PM [employer]ALTH PROFESSIONAL Gender Identity Female 10/08/2020 6:27 PM HEALTH PROFESSIONAL Sexual Orientation Choose not to disclose 2020 6:27 PM HEALTH PROFESSIONAL documented as of this encounter Functional Status * Is person deaf or have serious hearing difficulty? Answer Date of Assessment Author No 01/06/2022 4:01 PM Lexie Vinson RN * Is person blind or have serious difficulty seeing? Answer Date of Assessment Author No 01/06/2022 4:01 PM RADHAT Lexie Mcfarlane RN * Does person have serious difficulty walking/climbing stairs? Answer Date of Assessment Author No 01/06/2022 4:01 PM Lexie Vinson RN * Does person have difficulty dressing/bathing? Answer Date of Assessment Author No 01/06/2022 4:01 PM Lexie Vinson RN * Does person have difficulty doing errands alone? Answer Date of Assessment Author No 01/06/2022 4:01 PM Lexie Vinson RN documented as of this encounter Mental Status * Does person have difficulty concentrating/remembering/making decisions? Answer Entry Date Author No 01/06/2022 4:01 PM Lexie Vinson RN documented in this encounter Plan of Treatment Not on file documented as of this encounter Visit Diagnoses Not on filedocumented in this encounter Care Teams Power Technician Relationship Specialty Start Date End Date True Delacruz MD [address] [place] [address] PCP - General 01/12/20 documented as of this encounter
--- OUTSIDE RECORDS SUMMARY | 2025-06-01 07:13 | XMS_ITS | Clinical Summary ---
Author Organization [facility] [employer] Address [address] [place] [address] Care Team Providers Care Technical Designer Name Role Phone True Delacruz MD Primary Care Provider [phone] Source Comments [facility],non-owned Affiliates and Associated Physician Practices is amultiple site organization consisting of ambulatory clinics and hospital sitesin [place], [place], [place] and [place]. This disclosure is being madepursuant to the Care Everywhere program and may not contain all information available regarding this patient. Last updated 18.[facility] [employer] Allergies Active Allergy Reactions Criticality Noted Date Comments Latex Rash Medium 01/06/2022 Meperidine Other Low 09/23/2017 hypotension Terfenadine Skin Reactions Medium 09/23/2017 Medications * Be aware that medications may not be up to date on this document. Alwaysverify current medications with the patient. calcium carbonate (OS-KEYANA 500) 1250 (500 CA) MG tablet Take 1 tablet by mouth DAILY. 09/30/2017 Active levothyroxine (SYNTHROID) 100 MCG tablet Take 1 tablet by mouth DAILY. 07/22/2017 Active Aspirin 81 MG Take 81 mg by mouth DAILY. 09/23/2017 Active Multiple Vitamin (MULTI VITAMIN DAILY) TABS Take 1 tablet by mouth once daily Active fluticasone propionate (FLONASE) 50 MCG/ACT nasal spray [place] 1 spray into each nostril as needed [...] 09/24/2017 Cerebrovascular accident 09/24/2017 Obese 08/14/2014 Immunizations Immunization Administration Dates Next Due Froylanmiesha Von primary monova lent 12+ yr 0.5mL 08/14/2021,11/27/2020,10/30/2020 FLU VACCINE TRI IIV3 SPLIT I M (FLUVIRIN) 07/19/2013 INFLUENZA VACCINE 06/11/2018 INFLUENZA VACCINE, ADJUVANTE D, QUADR. (FLUAD QUADRIVALENT; 65Y+) (AIIV4) 06/03/2020 INFLUENZA VACCINE, HIGH-DOSE , QUADR. (FLUZONE HIGH-DOSE QUADRIVALENT; 65Y+), 0.7 ML (HD-IIV4) 06/04/2021,05/24/2019,06/06/2018,2016,06/23/2016 INFLUENZA VACCINE, TRIV. (FL UZONE; FLULAVAL; FLUARIX; [...] Sex Assigned at Female 10/08/2020 6:27 PM WEATHERIZATION FIELD TECHNICIAN Legal Sex Female 5:35 PM WEATHERIZATION FIELD TECHNICIAN Gender Identity Female 10/08/2020 6:27 PM WEATHERIZATION FIELD TECHNICIAN Sexual Orientation Choose not to disclose 2020 6:27 PM WEATHERIZATION FIELD TECHNICIAN Last Filed Vital Signs Vital Sign Reading [...] A M CDT Height 154.9 cm (5' 1) 01/06/2022 6:20 AM CDT Body Mass Index [...] yrs (1 - 1-dose 75+ series) 2022 DEPRESSION SCREENING 09/07/2024 COVID-19 VACCINE ( season) 2025 08/14/2021, 11/27/2020, 10/30/2020 INFLUENZA VACCINE (#1) 2025 , 06/03/2020, 05/24/2019, Additional history exists HEPATITIS B VACCINE Aged Out No longe [...] this topic Medical Devices Explanted Type Area Cartridge Filler Device Identifier Shelf Expiration Date Model / Serial / Lot Stent Xact 7-9mm 40mm Crtd Slf Xpd Cls - [id number] Explanted:Qty : 1 on 01/06/2022 at [facility] Stent - Vascular Right: [employer] 02/04/2023 [id number] / [id number] / [id number] Stent Xact 7-9mm 30mm Crtd Slf Xpd Cls - [id number] Explanted:Qty : 1 on 01/06/2022 at [facility] Stent - Vascular Right: [employer] 04/06/2023 [id number] / [id number] / [id number] Insurance MEDICARE [facility] MEDICARE [facility] Advance Directives * Full Code (Latest Code Status on File) Date Activated Date Inactivated Comments 01/06/2022 4:59 PM 01/07/2022 1:17 PM Care Teams Technical Designer Relationship Specialty Start Date End Date True Delacruz MD [address] [place] [address] PCP - General 01/12/20
[2025-06-01 07:35] LABS: Hematocrit 38.6 % (37.0-47.0); Hemoglobin 12.9 g/dL (12.0-15.0); Mean Corpuscular HGB Conc 33.4 g/dl (32-36); Mean Corpuscular Hemoglobin 31.7 pg (26-34); Mean Corpuscular Volume 94.8 fl (80-100); Platelet Count Result 303 k/mm3 (150-375); Red Blood Count 4.07 M/mm3 (4.2-5.4); White Blood Count 8.8 K/mm3 (4.5-10.0)
[2025-06-01 07:53] LABS: Alanine Aminotransferase 28 U/L (6-35); Albumin Level 4.2 g/dL (3.5-5.1); Alkaline Phosphatase 82 U/L (38-126); Anion Gap 7 mmol/L (4-12); Aspartate Amino Transferase 48 U/L (14-36); Bilirubin,Total 0.5 mg/dL (0.2-1.3); Blood Urea Nitrogen 10 mg/dL (7-17); Calcium 10.0 mg/dL (8.4-10.2); Carbon Dioxide 31 mmol/L (22-30); Chloride 97 mmol/L (98-107); Cholesterol 139 mg/dL (0-200); Estimated Glomerular Filt Rate > 60; Glucose 110 mg/dL (65-110); HDL Direct 41 mg/dL; Potassium 4.4 mmol/L (3.4-5.0); Sodium 135 mmol/L (137-145); Total Protein 7.2 g/dL (6.3-8.2); Triglycerides 171 mg/dL (<150)
[2025-06-01 09:38] LABS: Thyroid Stimulating Hormone Reflex 3.700 uIU/mL (0.465-4.68)
[2025-06-01 12:38] LABS: Ferritin 112.00 ng/mL (11.1-264)
== END 2025-06-01 07:10 | disposition home or self-care (01) ==
PROVIDERS: PCP Nurse Practitioner Family; Referring Provider Internal Medicine Cardiovascular Disease; Visit Provider Nurse Practitioner Family
DX: R79.0 Abnormal level of blood mineral (principal); I10 Essential (primary) hypertension; E78.00 Pure hypercholesterolemia, unspecified; E03.9 Hypothyroidism, unspecified; E55.9 Vitamin D deficiency, unspecified
CPT/HCPCS: 36415; 80053; 80061; 82306; 82728; 84443; 85027

== ENCOUNTER 2025-09-03 08:54 | Emergency (ER) | payer MEDICARE, SELFPAY ==
[2025-09-03 09:11] VITALS: BP 85/73; PULSE 84; RESP 16; TEMP 36.2; O2SAT 97
--- NOTE | 2025-09-03 09:15 | ED.URI ---
HPI - URI/Sore Throat General Chief Complaint: Upper Respiratory Infection Stated Complaint: cough, runny nose Time Seen by Provider: 09/03/25 09:15 Source: patient Mode of arrival: ambulatory Limitations: no limitations History of Present Illness HPI Narrative: Ana Rosa is a 80-year-old female patient presenting to the clinic today with complaints of cough, runny nose, and losing her voice x3 days. She denies any shortness of breath or chest pain. Blood pressure is low in the clinic today but she denies any dizziness, visual changes, unsteady gait, chest pain, or shortness of breath. Has not taken her blood pressure medications today. Has been taking Mucinex and Robitussin for her symptoms. Related Data Home Medications ?Medication ?Instructions ?Recorded ?Confirmed ?Last Taken ?Type aspirin 81 mg tablet,delayed 81 mg PO DAILY 08/01/19 09/03/25 11/30/24 History release (Aspir-) calcium ER 600 mg (as carb,cit)-D3 2 tablet PO DAILY 08/01/19 09/03/25 11/30/24 History 12.5 mcg (500 unit) tablet, ext.rel (Citracal-D3 Slow Release) cholecalciferol (vitamin D3) 25 2,000 unit PO DAILY 08/01/19 09/03/25 11/30/24 History mcg (1,000 unit) tablet (Vitamin D3) clopidogrel 75 mg tablet (Plavix) 75 mg PO DAILY 10/22/21 09/03/25 11/26/24 History ascorbate calcium (vitamin C) See Rx Instructions PO QAM 10/31/22 09/03/25 11/30/24 History potassium chloride 20 mEq 40 meq PO DAILY 02/10/24 09/03/25 11/30/24 History tablet,extended release ferrous sulfate 325 mg (65 mg 325 mg PO DAILY 11/23/24 09/03/25 Unknown History iron) tablet (FeroSul) Allergies Allergy/AdvReac Type Severity Reaction Status Date / Time meperidine Allergy Unknown SEVERE Verified 09/03/25 09:28 HYPOTENSION terfenadine Allergy Unknown Hives Verified 09/03/25 09:28 Review of Systems Review of Systems: Pertinent positives per HPI. Patient denies any fever, chills, rash, headache, visual changes, dizziness, shortness of breath, chest pain, palpitations, nausea, vomiting, diarrhea, constipation, abdominal pain, or any urinary issues. [facility] Past Medical History Medical History (Updated 09/03/25 @ 09:31 by Moses Vogt APRN) Pruritus Chronic jaw pain Amaurosis fugax Adult idiopathic generalized osteoporosis Seborrheic keratosis BMI 32.0-32.9,adult Actinic keratosis Carotid bruit COVID-19 vaccine series completed Myositis Strain of left biceps muscle Biceps tendonitis History of vaginal delivery X2 Vaccine counseling Osteoarthritis Obesity (BMI 30.0-34.9) Dyslipidemia Bladder prolapse Seborrheic keratoses Adenomatous colon polyp CVA (cerebral vascular accident) Hypothyroidism Hypercholesterolemia HTN (hypertension) Surgical History Surgical History History of tubal ligation History of lumpectomy of right breast Benign Family History Family History Father Acute myocardial infarction Mother , Related to C. difficile No problems noted. Social History Social History Smoking packs per day: 0.5 Smoking cigarettes per day: 10.0 Years smoked: 40 Smoking pack-years: 20.00 Smoking status: Former smoker Tobacco type: cigarettes Second hand tobacco smoke exposure: Yes Smoking end date: 01/05/11 Alcohol intake: never Substance use: never Substance use type: does not use Lack of Transportation: No Lack of Food: Never True Current Housing: I Have Housing Concerned About Future Housing: No Difficulty Paying Gas/Electric Bills: No Difficulty Paying for Meds: No Currently Unemployed: No Education: High School Diploma/GED Difficulty w/ Childcare or Family Care: No Living arrangements: with family Occupation/Education: retired Gender identity (if verbalized by the patient): Female Sexual Orientation (if Verbalized by the Patient): Straight or Heterosexual Spiritual care concerns: No Comments At the time of my signature, I reviewed and agree with the nursing past medical, surgical, social, and family history. There is no relevant family history pertinent to the patient complaint. Exam Narrative: General: Well-developed, well nourished, in no apparent distress Head: Normocephalic, atraumatic Eyes: Pupils equally round and reactive to light bilaterally, EOM intact, sclera and conjunctive clear, no discharge, lids normal Ears: TMs intact and clear, ear canals clear, no drainage, grossly hearing normal. Nose: Nares patent, clear nasal discharge, no inflammation, no sinus tenderness. Mouth: Oral pharynx without lesions or masses, good dentition, MMM. Postnasal drip Neck: Supple, trachea midline, no enlargement of anterior or posterior cervical nodes, no thyroid masses or goiter palpable. Cardio: Regular rate and rhythm, s1 and s2 normal, no murmur appreciated. Resp: Clear to auscultation bilaterally, no rhonchi, rales, wheezing or rubs Course Course Level of Care: Express Care Visit Vital Signs Vital signs: Vital Signs Temperature 36.2 C L 09/03/25 09:11 Pulse Rate 84 09/03/25 09:11 Respiratory Rate 16 09/03/25 09:11 Blood Pressure 85/73 L 09/03/25 09:11 Pulse Oximetry 97 09/03/25 09:11 Temperature 36.2 C L 09/03/25 09:11 Pulse Rate 84 09/03/25 09:11 Respiratory Rate 16 09/03/25 09:11 Blood Pressure 85/73 L 09/03/25 09:11 Pulse Oximetry 97 09/03/25 09:11 [facility] MDM Narrative Medical decision making narrative: At the time of visit patient is resting comfortably on the exam table. Patient appears to be nontoxic. Complaints of cough, runny nose, and losing her voice x3 days. She denies any shortness of breath or chest pain. Blood pressure is low in the clinic today but she denies any dizziness, visual changes, unsteady gait, chest pain, or shortness of breath. Has not taken her blood pressure medications today. Has been taking Mucinex and Robitussin for her symptoms. On exam patient has bilateral TMs intact and clear, clear nasal drainage, no anterior turbinate inflammation, oral pharynx with postnasal drip, lung sounds are clear, heart rates regular rate rhythm. COVID and influenza testing were ordered. Plan: I suspect patient has URI/laryngitis. Prescription for prednisone was sent to the pharmacy. Instructed patient to hold taking her blood pressure medications-may resume taking her blood pressure medications when her blood pressure systolic is 110 or greater. She voiced understanding. Explained that if she develops any shortness of breath, chest pain, dizziness, and visual changes you will need to go the emergency room immediately. Follow-up PCP this week. Supportive measures were discussed with the patient and they voiced understanding discharge instructions and agrees to treatment plan. Return precautions reviewed Differential Diagnosis Differential Diagnosis: Differential diagnostic considerations for upper respiratory infection include upper respiratory infection, croup, otitis media, sinusitis, viral infection, bronchitis, influenza, pharyngitis, strep, uvulitis. Lab Data Labs: Lab Results 09/03/25 Range/Units 09:04 POC Influenza A Ag Negative (Negative) POC Influenza B Ag Negative (Negative) POC SARS CoV-2 Ag Negative (Negative) Discharge Plan Discharge Clinical Impression: Upper respiratory infection, Laryngitis, Acute hypotension Patient Disposition: Home Condition: Stable Instructions: Antibiotic Form, Laringitis (ED), Cold Symptoms (ED) Additional Instructions: COVID and influenza testing was negative in the clinic today. Hold taking your blood medication until your systolic blood pressures 110 or greater-if you develop chest pain, shortness of breath, or dizziness recommend going to the emergency room immediately. Change positions slowly Take prescription medications only as prescribed-prednisone Increase fluids and stay well hydrated May take Tylenol or motrin as directed on bottle for pain/fever May use Flonase 1 spray in each nare daily May take OTC antihistamines such as Zyrtec or Claritin daily as directed on bottle May apply Vicks vapor rub to chest to open sinuses Sinus rinses for congestion Cepacol spray, cough drops, throat lozenges, warm tea with honey/lemon, gargle salt water to soothe throat BRAT diet for diarrhea Clear liquids x 24 hours then advance as tolerated for nausea/vomiting Go to the ED if you develop a worsening in your condition- high fever not controlled by Tylenol or Motrin, dehydration, weakness, lethargy, shortness of breath, or chest pain. Follow up with your PCP in 3-5 days if symptoms persist. Patient Language: Mauritian Prescriptions: New prednisone 20 mg tablet 40 mg PO DAILY 5 Days Qty: 10 0RF No Action ibuprofen 800 mg tablet 800 mg PO TID PRN (Reason: pain) Qty: 30 0RF clopidogrel [Plavix] 75 mg tablet 75 mg PO DAILY potassium chloride 20 mEq tablet extended release 40 meq PO DAILY ascorbate calcium (vitamin C) See Rx Instructions PO QAM Rx Instructions: 1 tab orally every morning; aspirin [Aspir-81] 81 mg Tablet,Delayed Release (Dr/Ec) 81 mg PO DAILY cholecalciferol (vitamin D3) [Vitamin D3] 25 mcg (1,000 unit) Tablet 2,000 unit PO DAILY calcium carb, citrate-vit D3 [Citracal-D3 Slow Release] 600 mg calcium- 500 unit Tablet Extended Release 2 tablet PO DAILY ferrous sulfate [FeroSul] 325 mg (65 mg iron) tablet 325 mg PO DAILY olmesartan-hydrochlorothiazide 20-12.5 mg tablet See Rx Instructions .ROUTE .COMPLEX Qty: 90 1RF Dose Instruction: Take 1 tablet by mouth once daily Rx Instructions: Take 1 tablet by mouth once daily atorvastatin 80 mg tablet See Rx Instructions .ROUTE .COMPLEX Qty: 90 1RF Dose Instruction: TAKE 1 TABLET BY MOUTH ONCE DAILY AT BEDTIME Rx Instructions: TAKE 1 TABLET BY MOUTH ONCE DAILY AT BEDTIME levothyroxine 88 mcg tablet 88 mcg PO DAILY Qty: 90 1RF fluticasone propionate [Flonase Allergy Relief] 50 mcg/actuation spray,suspension 2 spray intranasal DAILY PRN (Reason: allergy symptoms) Qty: 16 5RF Rx Instructions: administer into each nostril Follow-up/Referrals: Maria Antonia Chao APRN [Primary Care Provider, Internal Medicine] Time of Disposition: 09:31 Quality NIHSS Nursing Documentation ED NIHSS nursing documentation: reviewed/agree
[2025-09-03 09:28] LABS: EDCOVIDSCREEN Negative (Negative); EDINFLUASCREEN Negative (Negative); EDINFLUBSCREEN Negative (Negative)
== END 2025-09-03 09:25 | disposition home or self-care (01) ==
PROVIDERS: Emergency Provider Nurse Practitioner Family; PCP Nurse Practitioner Family
DX: J06.9 Acute upper respiratory infection, unspecified (principal); J04.0 Acute laryngitis; L29.9 Pruritus, unspecified; L82.1 Other seborrheic keratosis; M75.20 Bicipital tendinitis, unspecified shoulder; E78.5 Hyperlipidemia, unspecified; E03.9 Hypothyroidism, unspecified; I10 Essential (primary) hypertension; Z87.891 Personal history of nicotine dependence
CPT/HCPCS: 87426; 87804; 99213; G0463